=== PATIENT | female | born 1980 | race Caucasian/White ===

== ENCOUNTER 2023-04-20 13:18 | Emergency (ER) | payer SELFPAY ==
[2023-04-20 13:22] VITALS: BP 140/87; PULSE 84; RESP 16; TEMP 37.1; O2SAT 99; BMI 21.2
--- NOTE | 2023-04-20 13:28 | XR_ITS ---
WS: [id number] Examination: XR chest 1V portable [id number] Reason for Exam: fever Date: April 20, 2023 Comparison: None. Findings: The heart is prominent in size. The mediastinum is not widened. There is no pulmonary edema or pleural effusion. There is no dense consolidation Impression: The heart size appears prominent. I see no failure consolidation.
--- NOTE | 2023-04-20 13:32 | ED_ITS ---
HPI - URI/Sore Throat General: Chief Complaint: Upper Respiratory Infection Stated Complaint: body aches , chills Time Seen by Provider: 04/20/23 13:22 Source: patient Mode of arrival: ambulatory Limitations: no limitations History of Present Illness: 43-year-old female states that over the last 3 days she has had cough congestion and bodyaches. She states she is unsure if she been around anyone sick. She states she feels like she has the flu. She states she had subjective fevers at home has not taken her temp she is afebrile here. She denies any production with her cough denies any dyspnea. She has had no vomiting or diarrhea. Associated symptoms: Reports chills; Deny abdominal pain, chest pain, diarrhea, fever(s), headache(s), nausea or vomiting Review of Systems Const: Reports: chills and body aches; Denies: fever(s) Eyes: Denies: eye discomfort ENMT: Denies: throat pain or dental pain Card: Denies: chest pain Resp: Reports: non-productive cough; Denies: dyspnea GI: Denies: abdominal pain, nausea, vomiting or diarrhea Musc: Denies: neck pain or back pain Skin/Breast: Denies: rash Neuro: Denies: headache(s) Physical Exam Const: COMMON NORMALS: no acute distress, patient oriented x3 and healthy appearing HENMT: COMMON NORMALS: normocephalic and atraumatic HEAD & SCALP: normocephalic and atraumatic Neck/C-Spine: COMMON NORMALS: full ROM and supple Chest: COMMONS NORMALS: normal inspection of the chest Resp: COMMON NORMALS: normal respiratory effort, No retractions, No use of accessory muscles and clear to auscultation bilaterally AUSCULTATION: clear to auscultation bilaterally Cardio: COMMON NORMALS: regular rate, regular rhythm and No murmurs present (Cardio) RATE: regular rate RHYTHM: regular rhythm Extremity: COMMON NORMALS: normal to inspection and full ROM Neuro: COMMON NORMALS: patient oriented x3, moves all extremities and no focal motor deficits Psych: COMMON NORMALS: mental status grossly normal, Normal thought process present and cooperative THOUGHT PROCESS: Normal thought process present Skin: COMMON NORMALS: no rashes or lesions noted and no wounds GENERAL SKIN EXAM: no rashes or lesions noted Course Vital Signs: Vital signs: Vital Signs Temperature 98.7 F 04/20/23 13:22 Pulse Rate 84 04/20/23 13:22 Respiratory Rate 16 04/20/23 13:22 Blood Pressure 140/87 04/20/23 13:22 Pulse Oximetry 99 04/20/23 13:22 Oxygen Delivery Me thod Room Air 04/20/23 13:22 MDM - URI/Sore Throat Medical Decision Making Patient presents here with cough congestion did test positive for influenza she is well-appearing here no distress we will prescribe her Tamiflu she is follow- up with PCP and return if worsening. Medical Records I reviewed the patient's medical records. Lab Data I reviewed the patient's lab results. Laboratory Results Influenza Type A Ag negative (Negative) 04/20/23 13:53 Influenza Type B Ag positive (Negative) H 04/20/23 13:53 SARS-CoV-2 Ag (Rapid) negative (Negative) 04/20/23 13:53 All radiology interpretation(s) finalized by discharge Discharge Plan Discharge Patient Disposition: Home Clinical Impression: Influenza Condition: Stable Prescriptions: New Tamiflu 75 mg capsule 75 mg PO BID 5 Days Qty: 10 0RF Discharge Orders: Discharge ED (Routine); Ordered 04/20/23 Ordered By: Starr Garvin Discharge Diet: Advance as tolerated Discharge Activity: Resume usual activity Patient Instructions: Influenza (ED) Coding Level of Care Code ED 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
[2023-04-20 14:16] LABS: Influenza A by IFA negative (Negative); Influenza B by IFA positive (Negative)
[2023-04-20 14:21] LABS: SARS Covid-2 Antigen negative (Negative)
[2023-04-20 14:55] VITALS: BP 140/87; PULSE 84; RESP 16; TEMP 37.1; O2SAT 99
== END 2023-04-20 14:56 | disposition home or self-care (01) ==
PROVIDERS: Emergency Provider Emergency Medicine
DX: J11.1 Influenza due to unidentified influenza virus with other respiratory manifestations (principal); Z11.52 Encounter for screening for COVID-19
CPT/HCPCS: 71045; 87426; 87804; 99284

== ENCOUNTER 2023-08-15 06:36 | Inpatient (IN) | payer SELFPAY ==
[2023-08-15] VITALS (69 sets, daily range): BP systolic 71–126; BP diastolic 45–75; PULSE 63–101; RESP 14–31; TEMP 37.1–38.4; O2SAT 95–100; BMI 20.5
--- NOTE | 2023-08-15 07:15 | W.ED.ABDPA2 ---
HPI - Abdominal Pain General: Chief Complaint: Abdominal Pain Stated Complaint: abd pain, back pain, vomitting, diarrhea Time Seen by Provider: 08/15/23 06:40 Source: patient Mode of arrival: ambulatory History of Present Illness: 43-year-old female who presents to the emergency room with complaints of severe abdominal pain began last evening with nausea vomiting and diarrhea denies any medic easy melena hematemesis or coffee-ground emesis has had some vaginal bleeding. Patient is perimenopausal with irregular periods at this point she has been having a period last couple of days. She denies any previous abdominal surgeries beyond a remote history of a D&C. Complaints of diffuse severe abdominal pain. MD elicited complaint: abdominal pain Onset (ago): hour(s) Pain Consistency: constant Location: Diffuse Severity: severe Quality: sharp Associated Symptoms: Reports GI cramping, nausea, poor appetite and vomiting; Denies anorexia, belching, bloating, change in bowel habits, change in stool character, chills, coffee ground emesis, constipation, diarrhea, dyspepsia, dysuria, excessive flatus, fever(s), heartburn, hematochezia, hematuria, hematemesis, fecal incontinence, loose stools, melena and syncope Review of Systems Const: Denies: fever(s) or chills Card: Denies: syncope Resp: Denies: dyspnea GI: Reports: nausea, vomiting and GI cramping; Denies: hematemesis, coffee ground emesis, heartburn, diarrhea, constipation, bloating, belching, excessive flatus, fecal incontinence, change in bowel habits, change in stool character, hematochezia or melena : Denies: dysuria or hematuria Musc: Denies: neck pain or back pain Skin/Breast: Denies: rash PFS ED PFSH: Surgical History History of dilation and curettage Physical Exam Const: GENERAL APPEARANCE: cooperative ORIENTATION/CONSCIOUSNESS: Yes awake, Yes oriented to person, Yes oriented to place and Yes oriented to time HENMT: COMMON NORMALS: normocephalic, atraumatic and hearing grossly normal bilaterally HEAD & SCALP: normocephalic and atraumatic Resp: COMMON NORMALS: normal respiratory effort, No retractions, No use of accessory muscles and clear to auscultation bilaterally AUSCULTATION: clear to auscultation bilaterally Cardio: COMMON NORMALS: regular rhythm and No murmurs present (Cardio) RATE: tachycardic RHYTHM: regular rhythm GI: COMMON NORMALS: No hepatosplenomegaly present AUSCULTATION: Yes normoactive bowel sounds PALPATION: Yes Tenderness to palpation present (GI) (Diffuse), Yes Guarding due to palpation present (GI) and Yes No hepatosplenomegaly present PERCUSSION: normal to percussion (Exquisite tenderness guarding) Extremity: COMMON NORMALS: normal to inspection, capillary refill normal, no clubbing, cyanosis or edema, no calf tenderness and no pedal edema Neuro: SENSORIUM/ORIENTATION: Yes oriented to person, Yes oriented to place and Yes oriented to time Skin: COMMON NORMALS: no rashes or lesions noted GENERAL SKIN EXAM: no rashes or lesions noted Course Vital Signs: Vital signs: Vital Signs Temperature 99.0 F 08/15/23 06:53 Pulse Rate 79 08/15/23 11:00 Respiratory Rate 18 08/15/23 11:00 Blood Pressure 118/69 08/15/23 11:58 Pulse Oximetry 97 08/15/23 11:00 Oxygen Delivery Me thod Room Air 08/15/23 11:00 MDM - Abdominal Pain Medical Decision Making Initial fluid bolus of 2 L ordered which slightly exceeds the 30 mL/kg for this patient. The 30 mill per kilo order for sepsis was not given since she had already received the equivalent of that. Radiology called regarding this patient they report a systemic abdominal inflammatory reaction there is abnormal appearing appendix they are concerned about acute appendicitis there is an adnexal mass with her beta-hCG is negative. Patient has acute surgical abdomen at this time. Her blood pressure initially improved with IV fluids from her presenting blood pressure of 70 currently she is 86 systolic with a mean arterial pressure of 63 she is completing the 2 L fluid bolus. We have ordered Levophed and Zosyn. I contacted Dr. Isidro who is consulting on the patient for her the acute abdomen and abnormal CT presentation. Dr. Isidro is seen and patient will admit for acute appendicitis. Patient has stabilized in the ER after fluid bolus has been given IV Zosyn and is currently on Levophed. Lab Data 08/15/23 07:08 08/15/23 07:08 Labs/Radiology: Radiology Impressions Abdomen/Pelvis CT 08/15/23 07:20 IMPRESSION: 1. Abnormally dilated appendix which contains fluid and appendicoliths in surrounded by fluid consistent with a appendicitis however the entire small and large bowel is abnormal with dilated loops of small bowel and diffuse wall thickening involving the small and large bowel elise. There is fluid adjacent to the appendix but also in the mesentery and in the cul-de-sac. It is likely that the appendicitis has generated such an inflammatory response as to secondarily involve the entire large and small bowel . It is less likely that the appendix is secondarily involved in an inflammatory process involving the entire GI tract. 2. No free air. No abscess 3. Septated cystic lesion right adnexa for which follow-up ultrasound is recommended 4. Umbilical hernia containing only fat. 5. Hepatomegaly 6. Distended gallbladder. No gallstones or gallbladder wall thickening detected. Negative for biliary ductal dilatation 7. Small umbilical hernia containing only fat Preliminary report was discussed with Dr Mclaughlin on 08/15/2023 at 8:17 a.m. central time Laboratory Results WBC 13.05 10^3/uL (3.29-11.43) H 08/15/23 07:08 RBC 4.49 10^6/uL (3.85-5.65) 08/15/23 07:08 Hgb 10.40 g/dL (11.27-16.99) L 08/15/23 07:08 Hct 33.2 % (36-47) L 08/15/23 07:08 MCV 73.9 fl (85-98) L 08/15/23 07:08 MCH 23.2 pg (27-33) L 08/15/23 07:08 MCHC 31.3 g/dL (30-55) 08/15/23 07:08 RDW 15.7 % (12.1-15.1) H 08/15/23 07:08 Plt Count 343 10^3/cmm (157-399) 08/15/23 07:08 MPV 10.0 fL (7.4-10.4) 08/15/23 07:08 Neut % (Auto) 91.0 % 08/15/23 07:08 Lymph % (Auto) 2.1 % 08/15/23 07:08 [place] % (Auto) 4.8 % 08/15/23 07:08 Eos % (Auto) 1.3 % 08/15/23 07:08 Baso % (Auto) 0.4 % 08/15/23 07:08 Neut # (Auto) 11.87 10^3/uL (1.8-7.7) H 08/15/23 07:08 Lymph # (Auto) 0.3 10^3/uL (0.8-4.8) L 08/15/23 07:08 [place] # (Auto) 0.6 10^3/uL (0.2-0.9) 08/15/23 07:08 Eos # (Auto) 0.2 10^3/uL (0.0-0.8) 08/15/23 07:08 Baso # (Auto) 0.1 10^3/uL (0.0-0.1) 08/15/23 07:08 Nucleated RBC % (auto) 0 % 08/15/23 07:08 Nucleated RBCs # 0.0 /100WBC 08/15/23 07:08 PT 14.60 SECONDS (12.1-14.9) 08/15/23 07:08 INR 1.11 (0.8-1.2) 08/15/23 07:08 APTT 28.4 SECONDS (23.9-36.7) 08/15/23 07:08 Sodium 137 mmol/L (136-145) 08/15/23 07:08 Potassium 4.1 mmol/L (3.5-5.1) 08/15/23 07:08 Chloride 103 mmol/L (98-107) 08/15/23 07:08 Carbon Dioxide 19 mmol/L (22-29) L 08/15/23 07:08 Anion Gap 19.1 (5-19) H 08/15/23 07:08 BUN 17 mg/dL (6-20) 08/15/23 07:08 Creatinine 1.1 mg/dL (0.5-0.9) H 08/15/23 07:08 GFR Calculation 53.7 mL/min (90-130) L 08/15/23 07:08 Glucose 145 mg/dL (65-115) H 08/15/23 07:08 Calculated Osmolality 288 mOsm/kg (285-295) 08/15/23 07:08 Lactic Acid 1.9 mmol/L (0.5-2.2) 08/15/23 07:08 Calcium 9.0 mg/dL (8.5-10.5) 08/15/23 07:08 Magnesium 1.4 mg/dL (1.7-2.3) L 08/15/23 07:08 Total Bilirubin 1.6 mg/dL (0.15-1.2) H 08/15/23 07:08 AST 22 U/L (0-32) 08/15/23 07:08 ALT 16 U/L (0-33) 08/15/23 07:08 Alkaline Phosphatase 56 U/L (35-105) 08/15/23 07:08 Total Protein 7.6 g/dL (6.6-8.7) 08/15/23 07:08 Albumin 4.2 g/dL (3.5-5.2) 08/15/23 07:08 Globulin 3.4 g/dL (1.3-4.6) 08/15/23 07:08 Lipase 9 U/L (13-60) L 08/15/23 07:08 HCG, Qual Negative (Negative) 08/15/23 07:08 Serum Ketones Negative (Negative) 08/15/23 07:08 Blood Type A Positive 08/15/23 09:00 Rho(D) Type Rh positive 08/15/23 09:00 Antibody Screen Negative 08/15/23 09:00 All radiology interpretation(s) finalized by discharge Discharge Plan Discharge Patient Disposition: Admitted As Inpatient Clinical Impression: Appendicitis, Septic shock Condition: Stable Prescriptions: No Action No Known Home Medications Coding Level of Care Code 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
--- NOTE | 2023-08-15 07:20 | CTR_ITS ---
PROCEDURE INFORMATION: Exam: CT Abdomen And Pelvis With Contrast Exam date and time: 08/15/2023 7:24 AM Age: 43 years old Clinical indication: Abdominal pain; Localized; Lower; Additional info: Abd pain TECHNIQUE: Imaging protocol: Computed tomography of the abdomen and pelvis with contrast. Radiation optimization: All CT scans at this facility use at least one of these dose optimization techniques: automated exposure control; mA and/or kV adjustment per patient size (includes targeted exams where dose is matched to clinical indication); or iterative reconstruction. Contrast material: OMNI 350; Contrast volume: 100 ml; Contrast route: INTRAVENOUS (IV); COMPARISON: CR XR chest 1V portable [id number] 04/20/2023 2:25 PM RADIATION DOSE METRICS: Total DLP (mGy-cm): 455.53 FINDINGS: Lungs: The included portions of the lung bases are clear. Diaphragm: There is a small hiatal hernia. Liver: The liver is enlarged measuring 20 cm. There are no focal liver lesions. Gallbladder and bile ducts: The gallbladder is distended there are no gallstones detected and there is no gallbladder wall thickening Pancreas: There are no focal lesions in the pancreas. Spleen: The spleen is unremarkable. Adrenal glands: The adrenal glands are normal. Kidneys and ureters: There are no renal or ureteral calculi. There is no hydronephrosis. Stomach and bowel: The bowel-gas pattern is not obstructed. There are dilated loops small bowel. There is diffuse wall thickening involving the colon and nearly the entire small bowel suggesting colitis/enteritis though could be secondary to generalized inflammatory process. The appendix is markedly abnormal. It is dilated up to 15 mm and contains fluid appendicoliths. It is seen on axial images 50 through 55. And coronal images 20 2 through 34 and sagittal images 38 through 44 There is surrounding abnormal fluid here as well as elsewhere in the mesentery and in the cul-de-sac. There is no organized abscess. Findings are thought to be consistent with a appendicitis with secondary involvement of the remainder of the GI tract with marked inflammatory response. The possibility that the appendix is secondarily involved from a generalized GI inflammatory process is thought to be less likely. Could Appendix: See Stomach and bowel finding. Intraperitoneal space: See Stomach and bowel finding. There is no free intraperitoneal air. Vasculature: Unremarkable. No abdominal aortic aneurysm. Lymph nodes: There is mild retroperitoneal adenopathy Urinary bladder: Unremarkable as visualized. Reproductive: The uterus is unremarkable. There is air in the vagina. There is a cystic lesion in the right adnexa measuring 3.2 x 2.2 x 3.6 cm. This may be a septated cyst however cystic neoplasm cannot be excluded and follow-up with ultrasound is recommended. There is a 2nd smaller 1 located in the anterior right adnexa measuring 1.2 cm Bones/joints: Unremarkable. No acute fracture. Soft tissues: There is a small umbilical hernia containing only fat. CT/CT abdomen pelvis w con* [id number] IMPRESSION: 1. Abnormally dilated appendix which contains fluid and appendicoliths in surrounded by fluid consistent with a appendicitis however the entire small and large bowel is abnormal with dilated loops of small bowel and diffuse wall thickening involving the small and large bowel elise. There is fluid adjacent to the appendix but also in the mesentery and in the cul-de-sac. It is likely that the appendicitis has generated such an inflammatory response as to secondarily involve the entire large and small bowel . It is less likely that the appendix is secondarily involved in an inflammatory process involving the entire GI tract. 2. No free air. No abscess 3. Septated cystic lesion right adnexa for which follow-up ultrasound is recommended 4. Umbilical hernia containing only fat. 5. Hepatomegaly 6. Distended gallbladder. No gallstones or gallbladder wall thickening detected. Negative for biliary ductal dilatation 7. Small umbilical hernia containing only fat Preliminary report was discussed with Dr Mclaughlin on 08/15/2023 at 8:17 a.m. central time
[2023-08-15 07:24] LABS: Basophils # 0.1 10^3/uL (0.0-0.1); Basophils % 0.4 %; Eosinophils # 0.2 10^3/uL (0.0-0.8); Eosinophils % 1.3 %; Hematocrit 33.2 % (36-47); Lymphocytes # 0.3 10^3/uL (0.8-4.8); Lymphocytes % 2.1 %; Mean Corpuscular HGB Conc 31.3 g/dL (30-55); Mean Corpuscular Hemoglobin 23.2 pg (27-33); Mean Corpuscular Volume 73.9 fl (85-98); Monocytes # 0.6 10^3/uL (0.2-0.9); Monocytes % 4.8 %; Neutrophils # 11.87 10^3/uL (1.8-7.7); Nucleated Red Blood Cells % 0 %; Platelet Count 343 10^3/cmm (157-399); Red Blood Count 4.49 10^6/uL (3.85-5.65); Red Cell Distribution Width 15.7 % (12.1-15.1); White Blood Count 13.05 10^3/uL (3.29-11.43)
[2023-08-15] MEDS: iohexol 350 mg/mL 500 mL Btl (per mL) IV (07:30)
[2023-08-15] MEDS: fentaNYL 50 mcg/mL INJ 2mL 25 MCG IVP ×3 (07:36→11:00)
[2023-08-15] MEDS: ondansetron 2 mg/ML SDV 2 mL 4 MG IVP (07:36)
[2023-08-15] MEDS: sodium chloride 0.9% 1,000 ML 999 ML IV ×2 (07:37)
[2023-08-15 07:44] LABS: Alanine Aminotransferase 16 U/L (0-33); Albumin Level 4.2 g/dL (3.5-5.2); Alkaline Phosphatase 56 U/L (35-105); Anion Gap 19.1 (5-19); Aspartate Amino Transferase 22 U/L (0-32); Blood Urea Nitrogen 17 mg/dL (6-20); Carbon Dioxide 19 mmol/L (22-29); Chloride 103 mmol/L (98-107); Creatinine Clr Calc Pharmacy 64.0637; Globulin 3.4 g/dL (1.3-4.6); Glomerular Filtration Rate 53.7 mL/min (90-130); Glucose 145 mg/dL (65-115); Lipase 9 U/L (13-60); Magnesium 1.4 mg/dL (1.7-2.3); Osmolality Calculated 288 mOsm/kg (285-295); Potassium 4.1 mmol/L (3.5-5.1); Sodium 137 mmol/L (136-145); Total Bilirubin 1.6 mg/dL (0.15-1.2); Total Protein 7.6 g/dL (6.6-8.7)
[2023-08-15 08:04] LABS: INR 1.11 (0.8-1.2); Lactic Sepsis W/Reflex 1.9 mmol/L (0.5-2.2)
[2023-08-15 08:05] LABS: Partial Thromboplastin Time 28.4 SECONDS (23.9-36.7)
[2023-08-15 08:12] LABS: HCG, Serum Qual Negative (Negative); Ketone (Acetest) Serum Negative (Negative)
[2023-08-15] MEDS: norepinephrine 4 MG/250 ML BAG 30 MG IV (08:47)
[2023-08-15] MEDS: piperacillin-tazobactam 4.5 GM in sodium chloride 0.9% (plus) 50 ML IV (09:25)
--- NOTE | 2023-08-15 09:48 | P.HP_ITS ---
Providers/Chief Complaint 2 Chief Complaint: abd pain, back pain, vomitting, diarrhea History of Present Illness Lima Castellano is a 43 year old female who presented to the hospital with 1 day history of lower abdominal pain nausea and emesis. She reports that her pain is severe and radiates across to her abdomen. Movement and palpation makes pain worse. Lifting her knees up to her chest makes the pain better. She denies any hematemesis. She does report diarrhea but denies any hematochezia and/or melena. A CT of the abdomen pelvis shows a dilated appendix with surrounding inflammation and edema. There is also wall thickening of the small and large bowel thought secondary to appendicitis. She is hypotensive in the ER right now and being put on Levophed Review of Systems 2 General: Reports: 10 or more systems reviewed and unremarkable except in HPI and below Medications/Allergies Home Medications Medication Instructions Recorded Confirmed Last Taken Type No Known Home Medications 08/15/23 08/15/23 Unknown History Allergies Allergy/AdvReac Type Severity Reaction Status Date / Time No Known Allergies Allergy Verified 04/20/23 13:27 PFSH Acute 2 PFSH: Surgical History History of dilation and curettage Vitals/I&O/Wt Last Vital Signs Temp 99.0 F 08/15/23 06:53 Pulse 82 08/15/23 09:27 Resp 18 08/15/23 09:27 BP 101/56 08/15/23 09:31 Pulse Ox 95 08/15/23 09:27 O2 Del Method Room Air 08/15/23 09:27 08/14/23 08/15/23 08/15/23 22:59 06:59 14:59 Intake Total 19.5 / 19.5 Balance 19.5 / 19.5 Weight last 48 hrs Weight 135 lb Physical Exam 2 Narrative: General : Patient is well developed , no acute distress, oriented x3 Head : Normal cephalic, a-traumatic. Ears : Pinnae and external canal are normal. Hearing is normal. Eyes : PERRLA, Sclera and injection are normal. No conjunctival discharge. Nose : Mucous membranes are without erythema. Throat : buccal mucosa is normal, gums are without significant recession or hypertrophy. Lungs : Equal chest rise bilaterally, no use of accessory muscles, trachea is midline. Cor : Rate and rhythm are normal. Abdomen : Soft, mild distention, diffuse tenderness with guarding but no rebound Extremities : No edema, no cyanosis or clubbing, dorsalis pedis pulses are present bilaterally, non-tender to palpation of calves. Upper extremities are normal bilaterally. Back : non-tender to palpation, no CVA tenderness. Neuro : CN II - XII intact, Upper and lower extremities have equal and full strength Data 08/15/23 07:08 08/15/23 07:08 Micro: Microbiology 08/15/23 09:05 Blood Culture - Preliminary Blood SPECIMEN COLLECTED 08/15/23 09:00 Blood Culture - Preliminary Blood SPECIMEN COLLECTED A&P Assessment and plan (1) Septic shock: (2) Appendicitis: Plan Bolus IV fluids Antibiotics To the operating room for Laparoscopic Appendectomy The risks and benefits of the procedure, including but not limited to, bleeding, infection, scar, numbness, pain, damage to surrounding structures, conversion to an open procedure, were explained to the patient. He is understanding of the risks and wishes to proceed. Attestations 2 Medical Necessity Statement*: Patient will require at least 1 night in the hospital for recovery after laparoscopic appendectomy for appendicitis with septic shock. She very likely will need to stay multiple days, especially if she is perforated Coding Level of Care Code 05689 Diagnoses Septic shock A41.9; R65.21 Appendicitis K37
--- NOTE | 2023-08-15 12:47 | ANES.PREANE2 ---
Pre-Anesthetic Assessment Height/Weight: Height 1.73 m Weight 61.235 kg Temp Pulse Resp BP Pulse Ox O2 Del Method 98.7 F 82 16 126/72 99 Room Air 08/15/23 12:31 08/15/23 12:31 08/15/23 12:31 08/15/23 12:31 08/15/23 12:31 08/15/23 12:31 Operation Date: 08/15/23 13:15 Proposed Procedures p Laparoscopic Appendectomy(Not Applicable) - Jd Isidro DO Familial anesthetic complications: none Was Beta Hayley taken within 24 hours: N/A Was Clonidine taken within 24 hours: N/A Last intake: Intake Last Liquid Date 08/14/23 Last Liquid Time 20:00 Last Solid Date 08/14/23 Last Solid Time 20:00 Social Tobacco and No alcohol Exam alert, oriented x 3, clear to auscultation bilaterally and regular rate & rhythm Airway Mallampati: Class II Dentition: other (extremely poor dention, very few left - discolored) Metabolic sepsis on levo gtt with stable BP Anesthetic Plan ASA status: 2E Anesthesia: General Risk of > 500 ml blood loss (7ml/kg in children): No Medications/Allergies Home Medications Medication Instructions Recorded Confirmed Last Taken Type No Known Home Medications 08/15/23 08/15/23 Unknown History Allergies Allergy/AdvReac Type Severity Reaction Status Date / Time No Known Allergies Allergy Verified 04/20/23 13:27 Current Medications Generic Name Dose Route Start Last Admin Trade Name Freq PRN Reason Stop Dose Admin Norepinephrine Bitartrate 4 mg in 250 mls @ 0 mls/hr 08/15/23 08:30 08/15/23 09:26 Levophed IV 5 mcg/min .Q0M HIRAM 18.75 mls/hr Titration Protocol Per Protocol [facility] Anesthesia Surgical History History of dilation and curettage Data Anesthesia 08/15/23 07:08 08/15/23 07:08 Short CBC 08/15/23 Range/Units 07:08 WBC 13.05 H (3.29-11.43) 10^3/uL Hgb 10.40 L (11.27-16.99) g/dL Hct 33.2 L (36-47) % MCV 73.9 L (85-98) fl Plt Count 343 (157-399) 10^3/cmm Neut % (Auto) 91.0 % Neut # (Auto) 11.87 H (1.8-7.7) 10^3/uL BMP 08/15/23 07:08 Sodium 137 Potassium 4.1 Chloride 103 Carbon Dioxide 19 L BUN 17 Creatinine 1.1 H Glucose 145 H Calcium 9.0 Liver Function 08/15/23 Range/Units 07:08 Total Bilirubin 1.6 H (0.15-1.2) mg/dL AST 22 (0-32) U/L ALT 16 (0-33) U/L Alkaline Phosphatase 56 (35-105) U/L Albumin 4.2 (3.5-5.2) g/dL Blood Bank 08/15/23 09:00 Blood Type A Positive Rho(D) Type Rh positive Antibody Screen Negative Coags 08/15/23 07:08 PT 14.60 INR 1.11 APTT 28.4 Microbiology 08/15/23 09:05 Blood Culture - Preliminary Blood SPECIMEN COLLECTED 08/15/23 09:00 Blood Culture - Preliminary Blood SPECIMEN COLLECTED Cardiac Studies: No Data to Display
[2023-08-15] MEDS: lidocaine-epi 2% PF 1:200,000 20 mL SDV XX (13:16)
--- NOTE | 2023-08-15 14:40 | ANE.PACU2 ---
Inpatient post-anesthesia follow up: Airway intact: Yes Vital signs: Temperature 101.2 F Pulse Rate 86 Respiratory Rate 27 Blood Pressure 95/60 Pulse Oximetry 98 Oxygen Delivery Me thod Room Air Oxygen Flow Rate 10 Fraction of Inspir ed Oxygen Hydration adequate: Yes Nausea and vomiting: No Pain level: 1 Mental status: Baseline
--- NOTE | 2023-08-15 15:20 | P.OP_ITS ---
Operative Report Date of procedure: August 15, 2023 Pre-op diagnosis: Acute appendicitis Septic shock Post-op diagnosis: Acute gangrenous and perforated appendicitis Septic shock Procedure done: Laparoscopic appendectomy Implants: 19 [place] Ortiz drain Specimens removed/disposition: Appendix Surgeon: Jd Isidro DO Anesthesia: General and Local Estimated blood loss (mL): 5 Complications: None apparent Brief History: This is a very pleasant 43-year-old female who presents to the hospital reporting a 1 day history of abdominal pain. She was found to be in shock in the ER and was put on vasopressors. CT of the abdomen pelvis showed extensive inflammation and fluid throughout the abdomen along with likely appendicitis. Laparoscopic appendectomy was indicated. The risk and benefits were explained and documented. Procedure: Patient was wheeled operative room placed on the OR table in the supine position. The abdomen was inspected prepped and draped in usual sterile fashion. General tracheal ovation was achieved by department anesthesia. A timeout was performed. All present were in agreement. 2% lidocaine with epinephrine was used to anesthetize the skin over Ramirez's point. A 15 blade scalpel was used to make a stab incision. A Veress needle was then inserted in the abdomen and intra-abdominal insufflation was brought to 15 mmHg. In a similar fashion, a 12 mm trocar was placed through the umbilicus. Purulence could be seen throughout the abdomen with some matting of the small bowel and purulence in the right lower quadrant. Two 5 mm trocars were placed in the lower abdomen 1 in the left lower quadrant and 1 in the right lower quadrant. The appendix was from the colon and small bowel. The mesoappendix was taken with the laparoscopic LigaSure. 2 PDS Endoloops were wrapped around the base of the appendix. The appendix was found to be gangrenous and perforated. Just distal to the Endoloops, the appendix was transected with the laparoscopic LigaSure. An Endo Catch bag was then used to remove the appendix through the umbilicus. The abdomen was then suctioned of all purulence. There was significant purulence around the liver. A 19 [place] Ortiz drain was then placed in through the left lower quadrant going along the liver, right paracolic gutter and into the pelvis. Drain was sutured in place with 3-0 silk. The umbilicus was then closed at the fascia with an 0 Vicryl and Triston-Amy in a [id number] fashion. Skin was washed and dried, trocar and and insufflation were removed. Skin was closed with 4-0 Monocryl in an interrupted subcuticular fashion. Dermabond was applied. Patient tolerated procedure well.
--- NOTE | 2023-08-15 16:17 | P.CONIM_ITS ---
Providers/Reason For Consult 2 Consulting Physician/Specialty*: General surgery Reason for Consult*: Perforated appendicitis, with shock Attending Physician: Jd Isidro DO History of Present Illness History of Present Illness Lima Castellano is a 43 year old female with no significant past medical history, who presents [facility] due to severe abdominal pain since last night, with nausea, vomiting, diarrhea, she tells me that she is on her period currently so she does not know if she has had bloody stools, denies any hematemesis, she has been having irregular periods recently, she has had a few D&Cs, for miscarriages, she has 4 kids, youngest being 16 years old, denies any other medical history, in the emergency room, she is found to have concerns for acute gangrenous and perforated appendicitis, in the emergency room she was given IV antibiotics, she was placed on pressors status post laparoscopic appendectomy, was on Levophed, currently she is not seen in the ICU, she is febrile, normotensive, on room air, alert oriented x 3, off pressors, currently her abdominal pain is mild, no lightheadedness, no dizziness, Review of Systems 2 Card: Denies: chest pain Resp: Denies: dyspnea GI: Reports: abdominal pain Medications/Allergies Home Medications Medication Instructions Recorded Confirmed Last Taken Type No Known Home Medications 08/15/23 08/15/23 Unknown History Allergies Allergy/AdvReac Type Severity Reaction Status Date / Time No Known Allergies Allergy Verified 04/20/23 13:27 Current Medications Generic Name Dose Route Start Last Admin Trade Name Freq PRN Reason Stop Dose Admin Norepinephrine Bitartrate 4 mg in 250 mls @ 0 mls/hr 08/15/23 08:30 08/15/23 14:40 Levophed IV 0 mcg/min .Q0M HIRAM 0 mls/hr Titration Protocol Per Protocol PFSH Acute 2 PFSH: Medical History (Updated 08/15/23 @ 16:22 by Rishabh Cohen MD) No pertinent past medical history Surgical History History of dilation and curettage Family History (Updated 08/15/23 @ 16:23 by Rishabh Cohen MD) Other CAD (coronary artery disease) Diabetes Ovarian cancer Social History (Updated 08/15/23 @ 16:20 by Rishabh Cohen MD) Smoking and tobacco/nicotine status: current every day tobacco/nicotine user Alcohol intake: never Substance/Drug Use: former Female Reproductive History: Date of last menstrual period: 08/12/23 Vitals/I&O/Wt Last Vital Signs Temp 101.2 F H 08/15/23 14:32 Pulse 84 08/15/23 15:45 Resp 22 H 08/15/23 15:45 BP 102/63 08/15/23 15:45 Pulse Ox 96 08/15/23 15:40 O2 Del Method Room Air 08/15/23 14:50 O2 Flow Rate 10 08/15/23 14:12 08/15/23 08/15/23 08/15/23 06:59 14:59 22:59 Intake Total 1167.625 / 1167.625 Output Total 5 / Balance 1162.625 / 1162.625 Weight last 48 hrs Weight 61.235 kg Weight 61.235 kg Physical Exam 2 Const: COMMON NORMALS: no acute distress and patient oriented x3 HENMT: COMMON NORMALS: normocephalic HEAD & SCALP: normocephalic Eye: COMMON NORMALS: Equal, round and reactive pupils present and EOMs intact bilaterally PUPIL: Yes Equal, round and reactive pupils present Neck/C-Spine: COMMON NORMALS: no JVD Lymph: LYMPHATIC: no lymphadenopathy noted Resp: COMMON NORMALS: normal respiratory effort, No retractions, No use of accessory muscles and clear to auscultation bilaterally AUSCULTATION: clear to auscultation bilaterally Cardio: COMMON NORMALS: no JVD, regular rate, regular rhythm, S1 normal heart sound present and S2 normal heart sound present RATE: regular rate RHYTHM: regular rhythm HEART SOUNDS: S1 normal heart sound present and S2 normal heart sound present GI: OTHER: Abdomen soft, slightly distended, diminished bowel sounds, no guarding, rebound, no rigidity, does have diffuse tenderness, surgical site looks clean and dry, GAMAL drain in place Extremity: COMMON NORMALS: no pedal edema Neuro: COMMON NORMALS: patient oriented x3, CN's II-XII intact bilaterally and moves all extremities Psych: COMMON NORMALS: mental status grossly normal Data 08/15/23 07:08 08/15/23 07:08 Micro: Microbiology 08/15/23 15:55 Blood Culture - Preliminary Blood SPECIMEN COLLECTED 08/15/23 15:50 Blood Culture - Preliminary Blood SPECIMEN COLLECTED 08/15/23 09:05 Blood Culture - Preliminary Blood SPECIMEN COLLECTED 08/15/23 09:00 Blood Culture - Preliminary Blood SPECIMEN COLLECTED A&P Assessment and plan (1) Appendicitis: (2) Septic shock: (3) No pertinent past medical history: (4) Acute gangrenous appendicitis with perforation and peritonitis: Plan Acute gangrenous and perforated appendicitis ? Status post laparoscopic appendectomy ? GAMAL drain in place, ? Was on pressors in the emergency room received IV antibiotics, received IV fluids ? Plan ? Currently in ICU ? Off pressors ? Monitor hemodynamics closely - can give fluid boluses as needed, maintain MAP greater than 65 ? Currently fluids at 150 cc an hour closely monitor for fluid overload, ? Continue Dilaudid for pain control -Continue Zosyn ? Full code ? Heparin for DVT prophylaxis Septated cystic lesion right adnexa for which follow-up ultrasound is recommended ? Has a family history of ovarian cancer ? Will obtain a CA125 -Will have patient follow-up with gynecology as outpatient Consult Attestations 2 Medical Necessity Statement: Patient requires hospitalization, inpatient, greater than 2 minutes, for acute gangrenous perforated appendicitis status post laparoscopic appendectomy with current ICU admission, due to hypotension and was on pressors off pressors, IV antibiotics, fluid therapy, close monitoring Diagnoses Appendicitis K37 Septic shock A41.9; R65.21 No pertinent past medical history Z78.9 Acute gangrenous appendicitis with perforation and peritonitis K35.32
[2023-08-15] MEDS: piperacillin-tazobactam 3.375 GM in sodium chloride 0.9% (plus) 50 ML IV (16:42)
[2023-08-15] MEDS: heparin 5,000 unit/mL INJ 1 mL 5000 UNIT SUBCUT ×2 (16:42→23:50)
[2023-08-15] MEDS: HYDROcodone-acetaminophen 5-325 mg Tablet 1 TAB PO ×2 (16:42→23:46)
[2023-08-15] MEDS: sodium chloride 0.9% 1,000 ML 150 ML IV ×2 (16:51→23:47)
[2023-08-15] MEDS: docusate sodium 100 mg Capsule PO (16:59)
[2023-08-15 17:16] LABS: CA 125 40.8 U/mL (0-35)
[2023-08-15] MEDS: HYDROmorphone 1 mg/mL INJ 1 mL IVP (20:07)
[2023-08-16] VITALS (54 sets, daily range): BP systolic 70–115; BP diastolic 47–72; PULSE 63–88; RESP 18–34; TEMP 37.1–37.5; O2SAT 92–100
[2023-08-16 00:19] LABS: Bilirubin Urine Neg (Negative); Blood Urine 3+ (Negative); Glucose Urine UA Norm (Normal); Ketones Urine 1+ (Negative); Leukocyte Esterase Urine 1+ (Negative); Nitrate Urine Negative (Negative); Protein Urine Trace (Negative); Specific Gravity, Urine 1.015 (1.005-1.030); Urine Appearance Slightly Cloudy (CLEAR); Urine Color Dark Yellow (Yellow); Urobilinogen Urine Norm (Negative); pH Urine 5 (5-7)
[2023-08-16 00:20] LABS: Add Urine Microscopic? YES; Bacteria Urine 1+ /hpf; RBC Urine 0-4 /hpf (0-2)
[2023-08-16 00:21] LABS: Add Urine Culture? Yes; Trichomonas Urine 1+ /hpf
[2023-08-16] MEDS: piperacillin-tazobactam 3.375 GM in sodium chloride 0.9% (plus) 50 ML IV ×3 (00:51→16:43)
[2023-08-16] MEDS: sodium chloride 0.9% 1,000 ML 150 ML IV ×2 (06:10→13:37)
[2023-08-16] MEDS: HYDROcodone-acetaminophen 5-325 mg Tablet 1 TAB PO ×4 (06:23→18:30)
[2023-08-16 06:36] LABS: Basophils % 0.2 %; Eosinophils % 0.1 %; Hematocrit 27.6 % (36-47); Lymphocytes # 0.9 10^3/uL (0.8-4.8); Lymphocytes % 4.5 %; Mean Corpuscular HGB Conc 32.6 g/dL (30-55); Mean Corpuscular Volume 70.6 fl (85-98); Mean Platelet Volume 10.2 fL (7.4-10.4); Monocytes # 0.9 10^3/uL (0.2-0.9); Monocytes % 4.6 %; Neutrophils # 18.53 10^3/uL (1.8-7.7); Neutrophils % 90.3 %; Nucleated Red Blood Cells % 0 %; Platelet Count 300 10^3/cmm (157-399); Red Blood Count 3.91 10^6/uL (3.85-5.65); Red Cell Distribution Width 15.8 % (12.1-15.1); White Blood Count 20.54 10^3/uL (3.29-11.43)
[2023-08-16 06:59] LABS: Anion Gap 15.9 (5-19); Blood Urea Nitrogen 15 mg/dL (6-20); Calcium 7.9 mg/dL (8.5-10.5); Carbon Dioxide 20 mmol/L (22-29); Chloride 108 mmol/L (98-107); Creatinine Clr Calc Pharmacy 103.5202; Glomerular Filtration Rate 90.5 mL/min (90-130); Glucose 145 mg/dL (65-115); Magnesium 1.6 mg/dL (1.7-2.3); Osmolality Calculated 293 mOsm/kg (285-295); Potassium 3.9 mmol/L (3.5-5.1); Sodium 140 mmol/L (136-145)
[2023-08-16] MEDS: heparin 5,000 unit/mL INJ 1 mL 5000 UNIT SUBCUT ×2 (07:06→16:44)
[2023-08-16] MEDS: pantoprazole DR 40 mg Tablet PO (08:11)
[2023-08-16] MEDS: docusate sodium 100 mg Capsule PO ×2 (08:11→16:44)
--- NOTE | 2023-08-16 10:30 | PC.CHAP ---
Pastoral Care Encounter/Spiritual Assessment Type of Contact [] Declined capacitor inspector visit [] Patient/Family/Request visit [] Outpatient visit [] Follow-up visit [] Physician referral [] Code/Alert [x] Routine visit [] Staff referral [] Actively dying [] Patient sleeping [] Family support [] [] Out of room [] Palliative care [] [] Receiving care in room [] Pre-surgical visit [] Trauma [] Long length of stay [x ICU visit [] Other: Relational/Emotional Strength [] Patient feels connected with others/family/visitors/staff [] Distress [] Loneliness/isolation [] Abandonment Spirituality of Patient [] Person of Elsie [] Attends Zoroastrian of their Elsie [] Believes in Prayer [] Reads Bible or Congregational materials [] There are Spiritual issues to be addressed Delivery Driver Interventions [x] Prayer [] Active listening [] Non-anxious presence [] Spiritual/emotional support [] Crisis/trauma care [] Spiritual counseling [] Bereavement support [] Provided bereavement packet [] Provided Bible/devotional materials [] Provided toy/stuffed animal, coloring book to patient or family member [] Provided Communion [] Anointing/[place] [] Salvation [] Completed spiritual assessment [] Other: Impact on Illness or Injury [] Angry [] Fearful [] Anxious [] Often cries [] Exhaustion [] Unable to work [] Unable to attend yarsani [] Unable to walk/stand [] Unable to read [] Unable to drive [] Unable to eat/drink [] Unable to sleep [] Unable to be with family [] Patient intubated [] Other: Summary no appetite... wanting to rest Time spent with patient
--- NOTE | 2023-08-16 13:23 | P.PN_ITS ---
Subjective 2 Subjective: Patient seen and examined. Pain controlled. Tolerating diet Vitals/I&O/Wt Last Vital Signs Temp 99.7 F H 08/17/23 04:00 Pulse 84 08/17/23 11:00 Resp 22 H 08/17/23 12:27 BP 112/70 08/17/23 11:00 Pulse Ox 93 08/17/23 12:27 O2 Del Method Room Air 08/17/23 11:00 O2 Flow Rate 10 08/15/23 14:12 08/16/23 08/17/23 08/17/23 22:59 06:59 14:59 Intake Total 290 / 1682.5 1307.5 / 2990.0 761.25 / 761.25 Output Total 120 / 540 470 / 470 Balance 290 / 1262.5 1187.5 / 2450.0 291.25 / 291.25 Weight last 48 hrs Weight 151 lb 8 oz Weight 151 lb 8 oz Weight 144 lb 12.8 oz Weight 144 lb 12.8 oz Weight 135 lb Physical Exam 2 Narrative: General: No acute distress, awake alert oriented x 3 Abdomen: Soft, distended, appropriately tender Drain serosanguineous Data 08/17/23 08:36 08/17/23 04:10 Micro: Microbiology 08/15/23 23:55 Urine Culture - Preliminary Urine,Clean Catch 08/15/23 15:55 Blood Culture - Preliminary Blood 08/15/23 15:50 Blood Culture - Preliminary Blood NEGATIVE TO DATE 08/15/23 09:05 Blood Culture - Preliminary Blood NEGATIVE TO DATE 08/15/23 09:00 Blood Culture - Preliminary Blood NEGATIVE TO DATE A&P Assessment and plan (1) Acute gangrenous appendicitis with perforation and peritonitis: Plan Antibiotics Regular diet Patient will need to stay in the hospital for 5 days for IV antibiotics due to the severity of her perforated appendicitis and peritonitis. I will repeat a CT of abdomen and pelvis prior to discharge Hospitalist following. Thank you for the recommendations Attestations 2 Medical Necessity Statement*: Patient requires multiple more nights in the hospital for IV antibiotics and recovery after laparoscopic appendectomy for gangrenous and perforated appendicitis with peritonitis Coding Level of Care Code Acute Code for [facility] Fwd Diagnoses Acute gangrenous appendicitis with perforation and peritonitis K35.32
--- NOTE | 2023-08-16 13:58 | P.PN_ITS ---
Subjective 2 Subjective: Patient was seen this morning, denies any fevers, no chills, no nausea, no vomiting Vitals/I&O/Wt Last Vital Signs Temp 99.4 F 08/16/23 07:00 Pulse 73 08/16/23 13:30 Resp 25 H 08/16/23 13:30 BP 105/65 08/16/23 13:30 Pulse Ox 100 08/16/23 13:30 O2 Del Method Room Air 08/16/23 13:30 O2 Flow Rate 10 08/15/23 14:12 08/15/23 08/16/23 08/16/23 22:59 06:59 14:59 Intake Total 672.5 / 4059.514 1752.625 / 3250.750 1290 / 1290 Output Total 80 / 85 720 / 805 420 / 420 Balance 592.5 / 1755.125 690.625 / 2445.750 870 / 870 Weight last 48 hrs Weight 65.68 kg Weight 65.68 kg Weight 61.235 kg Weight 61.235 kg Physical Exam 2 Const: COMMON NORMALS: no acute distress and patient oriented x3 Resp: COMMON NORMALS: normal respiratory effort, No retractions, No use of accessory muscles and clear to auscultation bilaterally AUSCULTATION: clear to auscultation bilaterally Cardio: COMMON NORMALS: regular rate, regular rhythm, S1 normal heart sound present and S2 normal heart sound present RATE: regular rate RHYTHM: r egular rhythm HEART SOUNDS: S1 normal heart sound present and S2 normal heart sound present GI: OTHER: Abdomen soft, slightly distended, scattered bowel sounds, no guarding, no rebound, no rigidity, GAMAL drain in place Extremity: COMMON NORMALS: no pedal edema Neuro: COMMON NORMALS: patient oriented x3 Psych: COMMON NORMALS: mental status grossly normal Data 08/16/23 06:00 08/16/23 06:00 Micro: Microbiology 08/15/23 09:05 Blood Culture - Preliminary Blood NEGATIVE TO DATE 08/15/23 09:00 Blood Culture - Preliminary Blood NEGATIVE TO DATE 08/15/23 15:55 Blood Culture - Preliminary Blood SPECIMEN COLLECTED 08/15/23 15:50 Blood Culture - Preliminary Blood SPECIMEN COLLECTED A&P Assessment and plan (1) Appendicitis: (2) Septic shock: (3) No pertinent past medical history: (4) Acute gangrenous appendicitis with perforation and peritonitis: Plan Acute gangrenous and perforated appendicitis ? Status post laparoscopic appendectomy ? GAMAL drain in place, ? Was on pressors in the emergency room received IV antibiotics, received IV fluids ? Plan ? Currently in ICU ? Off pressors ? Monitor hemodynamics closely - can give fluid boluses as needed, maintain MAP greater than 65 ? De-escalate fluids to 75 cc an hour ? Continue Dilaudid for pain control -Continue Zosyn ? Full code ? Heparin for DVT prophylaxis Septated cystic lesion right adnexa for which follow-up ultrasound is recommended ? Has a family history of ovarian cancer ? Will obtain a CA125, elevated, will need to follow-up with Golf Cart Mechanic as outpatient -Will have patient follow-up with gynecology as outpatient Attestations 2 Medical Necessity Statement*: Patient requires hospitalization for acute gangrenous perforated appendicitis, requiring IV antibiotics Diagnoses Appendicitis K37 Septic shock A41.9; R65.21 No pertinent past medical history Z78.9 Acute gangrenous appendicitis with perforation and peritonitis K35.32
[2023-08-16] MEDS: HYDROmorphone 1 mg/mL INJ 1 mL IVP (19:56)
[2023-08-17] VITALS (41 sets, daily range): BP systolic 104–123; BP diastolic 64–85; PULSE 78–92; RESP 14–34; TEMP 36.7–38.3; O2SAT 89–96; BMI 23.0
[2023-08-17] MEDS: HYDROmorphone 1 mg/mL INJ 1 mL IVP ×6 (00:09→21:52)
[2023-08-17] MEDS: heparin 5,000 unit/mL INJ 1 mL 5000 UNIT SUBCUT ×4 (00:15→22:44)
[2023-08-17] MEDS: piperacillin-tazobactam 3.375 GM in sodium chloride 0.9% (plus) 50 ML IV ×3 (01:38→17:20)
[2023-08-17] MEDS: HYDROcodone-acetaminophen 5-325 mg Tablet 1 TAB PO ×4 (03:03→19:50)
[2023-08-17] MEDS: sodium chloride 0.9% 1,000 ML 75 ML IV (03:04)
[2023-08-17 04:50] LABS: Anion Gap 14.6 (5-19); Blood Urea Nitrogen 11 mg/dL (6-20); Calcium 7.9 mg/dL (8.5-10.5); Carbon Dioxide 20 mmol/L (22-29); Chloride 106 mmol/L (98-107); Creatinine Clr Calc Pharmacy 103.5202; Glomerular Filtration Rate 90.5 mL/min (90-130); Glucose 91 mg/dL (65-115); Magnesium 1.6 mg/dL (1.7-2.3); Osmolality Calculated 283 mOsm/kg (285-295); Potassium 3.6 mmol/L (3.5-5.1); Sodium 137 mmol/L (136-145)
[2023-08-17 04:51] LABS: Acinetobacter baumannii Not Detected (NOT DETECT); Bacteroides fragilis Not Detected (NOT DETECT); Citrobacter Not Detected (NOT DETECT); Cronobacter sakazakii Not Detected (NOT DETECT); Enterobacter cloacae complex Not Detected (NOT DETECT); Enterobacter non cloacae Not Detected (NOT DETECT); Fusobacterium necrophorum Not Detected (NOT DETECT); Fusobacterium nucleatum Not Detected (NOT DETECT); Haemophilus influenzae Not Detected (NOT DETECT); Klebsiella pneumoniae group Not Detected (NOT DETECT); Morganella morganii Not Detected (NOT DETECT); Neisseria meningitidis Not Detected (NOT DETECT); Pan Candida Not Detected (NOT DETECT); Pan Gram-Positive Not Detected (NOT DETECT); Proteus mirabilis Not Detected (NOT DETECT); Pseudomonas aeruginosa Not Detected (NOT DETECT); Salmonella Not Detected (NOT DETECT); Serratia Not Detected (NOT DETECT); Serratia marcescens Not Detected (NOT DETECT); Stenotrophomonas maltophilia Not Detected (NOT DETECT)
[2023-08-17] MEDS: pantoprazole DR 40 mg Tablet PO (07:48)
[2023-08-17] MEDS: magnesium sulfate premix 4 GM/100 ML PREMIX IV (07:48)
[2023-08-17] MEDS: docusate sodium 100 mg Capsule PO ×2 (07:48→17:20)
[2023-08-17 08:42] LABS: Basophils % 0.2 %; Eosinophils % 0.2 %; Hematocrit 23.1 % (36-47); Lymphocytes # 0.8 10^3/uL (0.8-4.8); Lymphocytes % 4.6 %; Mean Corpuscular HGB Conc 32.9 g/dL (30-55); Mean Corpuscular Volume 69.8 fl (85-98); Monocytes # 0.7 10^3/uL (0.2-0.9); Neutrophils # 15.79 10^3/uL (1.8-7.7); Neutrophils % 90.4 %; Nucleated Red Blood Cells % 0 %; Platelet Count 276 10^3/cmm (157-399); Red Blood Count 3.31 10^6/uL (3.85-5.65); Red Cell Distribution Width 15.6 % (12.1-15.1); White Blood Count 17.45 10^3/uL (3.29-11.43)
--- NOTE | 2023-08-17 13:25 | P.PN_ITS ---
Subjective 2 Subjective: Patient seen and examined. Still having abdominal pain. Tolerating diet Vitals/I&O/Wt Last Vital Signs Temp 99.7 F H 08/17/23 04:00 Pulse 84 08/17/23 11:00 Resp 22 H 08/17/23 12:27 BP 112/70 08/17/23 11:00 Pulse Ox 93 08/17/23 12:27 O2 Del Method Room Air 08/17/23 11:00 O2 Flow Rate 10 08/15/23 14:12 08/16/23 08/17/23 08/17/23 22:59 06:59 14:59 Intake Total 290 / 1682.5 1307.5 / 2990.0 761.25 / 761.25 Output Total 120 / 540 470 / 470 Balance 290 / 1262.5 1187.5 / 2450.0 291.25 / 291.25 Weight last 48 hrs Weight 151 lb 8 oz Weight 151 lb 8 oz Weight 144 lb 12.8 oz Weight 144 lb 12.8 oz Weight 135 lb Physical Exam 2 Narrative: General: No acute distress, awake alert and oriented x 3 Abdomen: Soft, distended, appropriately tender Drain cloudy with serous Data 08/17/23 08:36 08/17/23 04:10 Micro: Microbiology 08/15/23 23:55 Urine Culture - Preliminary Urine,Clean Catch 08/15/23 15:55 Blood Culture - Preliminary Blood 08/15/23 15:50 Blood Culture - Preliminary Blood NEGATIVE TO DATE 08/15/23 09:05 Blood Culture - Preliminary Blood NEGATIVE TO DATE 08/15/23 09:00 Blood Culture - Preliminary Blood NEGATIVE TO DATE A&P Assessment and plan (1) Acute gangrenous appendicitis with perforation and peritonitis: (2) Acute anemia: Plan Antibiotics Regular diet Repeat hemoglobin after 12 hours Patient will need to stay in the hospital for 5 days for IV antibiotics due to the severity of her perforated appendicitis and peritonitis. I will repeat a CT of abdomen and pelvis prior to discharge Hospitalist following. Thank you for the recommendations Transfer to floor Attestations 2 Medical Necessity Statement*: Patient requires multiple more nights in the hospital for IV antibiotics and recovery after laparoscopic appendectomy for gangrenous and perforated appendicitis with peritonitis Coding Level of Care Code Acute Code for [facility] Fwd Diagnoses Acute gangrenous appendicitis with perforation and peritonitis K35.32 Acute anemia D64.9
[2023-08-17 14:15] LABS: Basophils % 0.2 %; Eosinophils # 0.1 10^3/uL (0.0-0.8); Eosinophils % 0.3 %; Hematocrit 23.9 % (36-47); Lymphocytes # 0.7 10^3/uL (0.8-4.8); Lymphocytes % 4.1 %; Mean Corpuscular HGB Conc 32.2 g/dL (30-55); Mean Corpuscular Hemoglobin 22.7 pg (27-33); Mean Corpuscular Volume 70.5 fl (85-98); Mean Platelet Volume 10.3 fL (7.4-10.4); Monocytes # 0.7 10^3/uL (0.2-0.9); Neutrophils # 16.02 10^3/uL (1.8-7.7); Neutrophils % 90.6 %; Nucleated Red Blood Cells % 0 %; Platelet Count 300 10^3/cmm (157-399); Red Blood Count 3.39 10^6/uL (3.85-5.65); Red Cell Distribution Width 15.7 % (12.1-15.1); White Blood Count 17.69 10^3/uL (3.29-11.43)
--- NOTE | 2023-08-17 14:26 | PC.NURSE ---
Report called to ALEX Kemp. Patient and belongings taken to room 257-1. Patient has notified family via cellphone.
--- NOTE | 2023-08-17 14:36 | P.PN_ITS ---
Subjective 2 Subjective: patient was seen this morning, she denies any nausea, no vomiting, is passing gas from below has not had a bowel movement, she did have low-grade temperatures early in the morning, Vitals/I&O/Wt Last Vital Signs Temp 99.7 F H 08/17/23 04:00 Pulse 82 08/17/23 13:30 Resp 22 H 08/17/23 13:30 BP 118/72 08/17/23 13:30 Pulse Ox 92 08/17/23 13:30 O2 Del Method Room Air 08/17/23 13:00 O2 Flow Rate 10 08/15/23 14:12 08/16/23 08/17/23 08/17/23 22:59 06:59 14:59 Intake Total 290 / 1682.5 1307.5 / 2990.0 1121.25 / 1121.25 Output Total 120 / 540 510 / 510 Balance 290 / 1262.5 1187.5 / 2450.0 611.25 / 611.25 Weight last 48 hrs Weight 68.719 kg Weight 68.719 kg Weight 65.68 kg Weight 65.68 kg Weight 61.235 kg Physical Exam 2 Const: COMMON NORMALS: no acute distress and patient oriented x3 Resp: COMMON NORMALS: normal respiratory effort, No retractions, No use of accessory muscles and clear to auscultation bilaterally AUSCULTATION: clear to auscultation bilaterally Cardio: COMMON NORMALS: regular rate, regular rhythm, S1 normal heart sound present and S2 normal heart sound present RATE: regular rate RHYTHM: r egular rhythm HEART SOUNDS: S1 normal heart sound present and S2 normal heart sound present GI: OTHER: Abdomen soft, distended, good bowel sounds, no guarding, rebound, rigidity, surgical site looks clean dry, GAMAL drain in place Extremity: COMMON NORMALS: no calf tenderness Neuro: COMMON NORMALS: patient oriented x3 Psych: COMMON NORMALS: mental status grossly normal Data 08/17/23 13:59 08/17/23 04:10 Micro: Microbiology 08/15/23 23:55 Urine Culture - Preliminary Urine,Clean Catch 08/15/23 15:55 Blood Culture - Preliminary Blood 08/15/23 15:50 Blood Culture - Preliminary Blood NEGATIVE TO DATE A&P Assessment and plan (1) Appendicitis: (2) Septic shock: (3) No pertinent past medical history: (4) Acute gangrenous appendicitis with perforation and peritonitis: (5) Gram-negative bacteremia: Plan Acute gangrenous and perforated appendicitis ? Status post laparoscopic appendectomy ? GAMAL drain in place, ? Was on pressors in the emergency room received IV antibiotics, received IV fluids -1 blood culture, positive for gram negative rods, gram negative bactremia ? Plan ?move to [facility] ? Off pressors ? Monitor hemodynamics closely ? Continue Dilaudid for pain control -Continue Zosyn -follow blood cultures ? Full code ? Heparin for DVT prophylaxis Septated cystic lesion right adnexa for which follow-up ultrasound is recommended ? Has a family history of ovarian cancer ? Will obtain a CA125, elevated, will need to follow-up with Field Associate as outpatient -Will have patient follow-up with gynecology as outpatient Attestations 2 Medical Necessity Statement*: patient equires hospitalization for gram-negative bacteremia, perforated appendicitis, requiring IV antibiotics Diagnoses Appendicitis K37 Septic shock A41.9; R65.21 No pertinent past medical history Z78.9 Acute gangrenous appendicitis with perforation and peritonitis K35.32 Gram-negative bacteremia R78.81
[2023-08-18] VITALS (12 sets, daily range): BP systolic 111–131; BP diastolic 69–88; PULSE 73–87; RESP 15–20; TEMP 36.4–37.6; O2SAT 90–96
[2023-08-18] MEDS: piperacillin-tazobactam 3.375 GM in sodium chloride 0.9% (plus) 50 ML IV ×3 (00:52→17:44)
[2023-08-18] MEDS: HYDROmorphone 1 mg/mL INJ 1 mL IVP ×4 (02:19→19:43)
[2023-08-18] MEDS: HYDROcodone-acetaminophen 5-325 mg Tablet 1 TAB PO ×4 (05:02→22:53)
[2023-08-18 06:06] LABS: Basophils % 0.2 %; Eosinophils # 0.1 10^3/uL (0.0-0.8); Eosinophils % 0.4 %; Hematocrit 23.2 % (36-47); Lymphocytes # 0.8 10^3/uL (0.8-4.8); Lymphocytes % 5.6 %; Mean Corpuscular HGB Conc 32.8 g/dL (30-55); Mean Corpuscular Hemoglobin 22.7 pg (27-33); Mean Corpuscular Volume 69.3 fl (85-98); Mean Platelet Volume 10.1 fL (7.4-10.4); Monocytes # 0.7 10^3/uL (0.2-0.9); Monocytes % 4.9 %; Neutrophils # 13.04 10^3/uL (1.8-7.7); Neutrophils % 88.2 %; Nucleated Red Blood Cells % 0 %; Platelet Count 307 10^3/cmm (157-399); Red Blood Count 3.35 10^6/uL (3.85-5.65); Red Cell Distribution Width 15.3 % (12.1-15.1); White Blood Count 14.78 10^3/uL (3.29-11.43)
[2023-08-18 06:26] LABS: Anion Gap 15.6 (5-19); Blood Urea Nitrogen 8 mg/dL (6-20); Calcium 7.9 mg/dL (8.5-10.5); Carbon Dioxide 21 mmol/L (22-29); Chloride 104 mmol/L (98-107); Creatinine Clr Calc Pharmacy 108.2588; Glomerular Filtration Rate 90.5 mL/min (90-130); Glucose 125 mg/dL (65-115); Magnesium 1.9 mg/dL (1.7-2.3); Osmolality Calculated 284 mOsm/kg (285-295); Potassium 3.6 mmol/L (3.5-5.1); Sodium 137 mmol/L (136-145)
[2023-08-18] MEDS: pantoprazole DR 40 mg Tablet PO (09:36)
[2023-08-18] MEDS: docusate sodium 100 mg Capsule PO ×2 (09:36→17:44)
[2023-08-18] MEDS: heparin 5,000 unit/mL INJ 1 mL 5000 UNIT SUBCUT ×3 (09:36→22:53)
--- NOTE | 2023-08-18 12:38 | P.PN_ITS ---
Subjective 2 Subjective: Patient was seen this morning, she complains of lack of stooling, for the last 3 days her flatus was also has decreased this morning she does complain of abdominal distention abdominal pain, diffusely, feels a bit nauseous, no vomiting, does have a poor appetite, she did not get much sleep during the night, she did report subjective fever overnight, denies any lightheadedness, no dizziness, Vitals/I&O/Wt Last Vital Signs Temp 97.6 F 08/18/23 08:00 Pulse 85 08/18/23 08:00 Resp 16 08/18/23 08:00 BP 122/77 08/18/23 08:00 Pulse Ox 94 08/18/23 08:00 O2 Del Method Room Air 08/18/23 08:00 O2 Flow Rate 2 08/18/23 04:00 08/17/23 08/18/23 08/18/23 22:59 06:59 14:59 Intake Total 396.75 / 1518.00 290 / 1808.00 240 / 240 Output Total 260 / 260 Balance 396.75 / 1008.00 290 / 1298.00 -20 / -20 Weight last 48 hrs Weight 73.074 kg Weight 68.719 kg Weight 68.719 kg Physical Exam 2 Const: COMMON NORMALS: no acute distress and patient oriented x3 Resp: COMMON NORMALS: normal respiratory effort, No retractions, No use of accessory muscles and clear to auscultation bilaterally AUSCULTATION: clear to auscultation bilaterally Cardio: COMMON NORMALS: regular rate, regular rhythm, S1 normal heart sound present and S2 normal heart sound present RATE: regular rate RHYTHM: r egular rhythm HEART SOUNDS: S1 normal heart sound present and S2 normal heart sound present GI: OTHER: Abdomen soft, distended, diminished bowel sounds, diffuse tenderness, no guarding, rebound, rigidity, GAMAL drain in place Extremity: COMMON NORMALS: no pedal edema Neuro: COMMON NORMALS: patient oriented x3 Psych: COMMON NORMALS: mental status grossly normal Data 08/18/23 05:47 08/18/23 05:47 Micro: Microbiology 08/15/23 23:55 Urine Culture - Final Urine,Clean Catch A&P Assessment and plan (1) Appendicitis: (2) Septic shock: (3) No pertinent past medical history: (4) Acute gangrenous appendicitis with perforation and peritonitis: (5) Gram-negative bacteremia: Plan Acute gangrenous and perforated appendicitis ? Status post laparoscopic appendectomy ? GAMAL drain in place, ? Was on pressors in the emergency room received IV antibiotics, received IV fluids, resolved -1 blood culture, positive for gram negative rods, gram negative bactremia ? Plan ?move to [facility] ? Off pressors ? Monitor hemodynamics closely ? Continue Dilaudid for pain control -Continue Zosyn -follow blood cultures, 1 blood culture positive for gram-negative rods, ? Full code ? Heparin for DVT prophylaxis Septated cystic lesion right adnexa for which follow-up ultrasound is recommended ? Has a family history of ovarian cancer ? Will obtain a CA125, elevated, will need to follow-up with Drawing Machine Operator as outpatient -Will have patient follow-up with gynecology as outpatient Gram-negative bacteremia continue Zosyn, follow-up repeat blood cultures, due to her persistent abdominal pain lack of stooling will repeat CT scan abdomen pelvis with IV contrast to evaluate for abscess possible abscess, persistent anemia, check B12, folic acid, iron levels Attestations 2 Medical Necessity Statement*: Patient requires hospitalization for acute gangrenous perforated appendicitis, Diagnoses Appendicitis K37 Septic shock A41.9; R65.21 No pertinent past medical history Z78.9 Acute gangrenous appendicitis with perforation and peritonitis K35.32 Gram-negative bacteremia R78.81
--- NOTE | 2023-08-18 12:39 | CTR_ITS ---
PROCEDURE INFORMATION: Exam: CT Abdomen And Pelvis With Contrast Exam date and time: 08/18/2023 1:36 PM Age: 43 years old Clinical indication: Abdominal pain; Prior surgery; Surgery date: Post-operative (0-2 days); Surgery type: Appendectomy; Additional info: Abdominal pain, post op for per appendicits, abscess TECHNIQUE: Imaging protocol: Computed tomography of the abdomen and pelvis with contrast. Radiation optimization: All CT scans at this facility use at least one of these dose optimization techniques: automated exposure control; mA and/or kV adjustment per patient size (includes targeted exams where dose is matched to clinical indication); or iterative reconstruction. Contrast material: [id number]; Contrast volume: 100 ml; Contrast route: INTRAVENOUS (IV); COMPARISON: CT abdomen pelvis w con* [id number] 08/15/2023 7:24 AM RADIATION DOSE METRICS: Total DLP (mGy-cm): 446.83 FINDINGS: Tubes, catheters and devices: Postsurgical drain placed via the left mid anterior abdominal wall terminates in the right posterolateral mid abdomen adjacent to the distal tip of the right hepatic lobe. Lungs: Dependent atelectatic changes in the lower lobes. Pleural spaces: Mild bilateral pleural effusions. Liver: Enlarged or elongated (21.8 cm in the craniocaudal span). No mass. Gallbladder and biliary ducts: Normal. No calcified stones. No ductal dilation. Pancreas: Normal. No ductal dilation. Spleen: Normal in size. No mass. Adrenal glands: Normal. No mass. Kidneys and ureters: The kidneys are normal in size with preserved parenchyma. No mass. No hydronephrosis or hydroureter. Stomach and bowel: Proximal small bowel is dilated to 4.5 cm with air-fluid level suggestive of partial mechanical obstruction. There is mild wall thickening in the normal caliber loops of distal ileum adjacent to right lower quadrant abscess. There is gradual rather than sharp transition point between distended and normal caliber bowel. There is no abnormal dilatation of the colon. Appendix: Absent. Intraperitoneal space: Trace amount of free intraperitoneal air expected on day 3 after appendectomy. There is trace amount of free intraperitoneal fluid. There are 2 loculated pockets of intraperitoneal fluid with peripheral enhancement of the peritoneal lining suggestive of pockets of peritonitis. Smaller irregular shaped pocket in the right lower abdomen in the resection bed of the appendix behind the loops of distal ileum measures 2 cm in thickness, 4 cm in oblique anterior-posterior diameter, and 2.5 cm in the craniocaudal span. The larger pocket in the cul-de-sac measures 4 cm in anterior-posterior diameter, 9.5 cm in [id number] diameter, 4.2 cm in the craniocaudal span. Vasculature: No abdominal aortic aneurysm. Lymph nodes: No enlarged lymph nodes. Urinary bladder: Unremarkable as visualized. Reproductive: The uterus in the left ovary are unremarkable. Stable 2 cm cyst in the right ovary likely represents physiologic follicular cyst. Bones/joints: No acute fracture. No dislocation. No suspicious lytic or sclerotic bone lesions. Soft tissues: There is new edema of the subcutaneous fat in the lower chest wall, in the abdominal wall and in the proximal thighs. Trace amount of air in the bilateral anterior abdominal wall is expected finding on day [address]/CT abdomen pelvis w con* [id number] IMPRESSION: 1. There are 2 loculated pockets of peritonitis in the cul-de-sac and in the right lower quadrant in the resection bed of the appendix. Postsurgical drain is passing anteriorly and inferiorly to these pockets. There is expected trace amount of free intraperitoneal fluid and air expected on day 3 after surgery. 2. There is fluid retention with new soft tissue edema, new small bilateral pleural effusions. There are passive dependent atelectatic changes in the lung bases. THIS REPORT CONTAINS FINDINGS THAT MAY BE CRITICAL TO PATIENT CARE. The findings were verbally communicated via telephone conference with Dr. Isidro at 3:37 PM CDT on 08/18/2023. The findings were acknowledged and understood.
[2023-08-18 14:52] LABS: Erythrocyte Sedimentation Rate 89 mm/hr (0-15)
[2023-08-18 15:07] LABS: C Reactive Protein 120.6 mg/L (0.0-4.9); Ferritin 176 ng/mL (15-150); Iron 17 ug/dL (37-145)
[2023-08-18 15:11] LABS: HCG, Serum Qual Negative (Negative)
[2023-08-18 15:23] LABS: Procalcitonin 5.04 ng/mL (0-0.5); Vitamin B12 642 pg/mL (232-1245)
--- NOTE | 2023-08-18 17:44 | P.PN_ITS ---
Subjective 2 Subjective: Patient seen and examined. She has persistent abdominal pain but she reports that she is doing much better. She did have a small bowel movement today. A CT of the abdomen pelvis was repeated and shows an abscess forming in the pelvis. Vitals/I&O/Wt Last Vital Signs Temp 98.6 F 08/18/23 16:00 Pulse 81 08/18/23 16:00 Resp 15 08/18/23 16:00 BP 131/88 08/18/23 16:00 Pulse Ox 96 08/18/23 16:00 O2 Del Method Room Air 08/18/23 16:00 O2 Flow Rate 2 08/18/23 04:00 08/18/23 08/18/23 08/18/23 06:59 14:59 22:59 Intake Total 290 / 1808.00 290 / 290 Output Total 260 / 260 Balance 290 / 1298.00 30 / 30 Weight last 48 hrs Weight 161 lb 1.6 oz Weight 151 lb 8 oz Weight 151 lb 8 oz Physical Exam 2 Narrative: General: No acute distress, awake alert and oriented x 3 Abdomen: Soft, distended, appropriately tender Drain cloudy serous Data 08/18/23 05:47 08/18/23 05:47 Micro: Microbiology 08/18/23 14:15 Blood Culture - Preliminary Blood SPECIMEN COLLECTED 08/18/23 14:11 Blood Culture - Preliminary Blood SPECIMEN COLLECTED 08/15/23 23:55 Urine Culture - Final Urine,Clean Catch A&P Assessment and plan (1) Acute gangrenous appendicitis with perforation and peritonitis: (2) Acute anemia: (3) Septic shock: Resolved (4) Gram-negative bacteremia: Plan Antibiotics Regular diet She is developing a pelvic abscess. I repeatedly warned her this may have been due to the severity of her disease. I will consult interventional radiology on Sunday for possible drainage. It looks like the large abscess in her pelvis can be drained, possibly through her buttocks. Celia nightly Hospitalist following. Thank you for the recommendations Attestations 2 Medical Necessity Statement*: Patient requires multiple more nights in the hospital for treatment of bacteremia and pelvic abscess forming after acute gangrenous and perforated appendicitis with peritonitis. IR drain will be ordered on Sunday Coding Level of Care Code Acute Code for [facility] Fwd Diagnoses Acute gangrenous appendicitis with perforation and peritonitis K35.32 Acute anemia D64.9 Septic shock A41.9; R65.21 Gram-negative bacteremia R78.81
[2023-08-18 19:33] LABS: Alanine Aminotransferase 14 U/L (0-33); Albumin Level 3.3 g/dL (3.5-5.2); Alkaline Phosphatase 159 U/L (35-105); Anion Gap 15.2 (5-19); Aspartate Amino Transferase 23 U/L (0-32); Blood Urea Nitrogen 7 mg/dL (6-20); Calcium 8.5 mg/dL (8.5-10.5); Carbon Dioxide 25 mmol/L (22-29); Chloride 101 mmol/L (98-107); Creatinine Clr Calc Pharmacy 108.2588; Gamma Glutamyl Transferase 47 U/L (5-36); Globulin 3.3 g/dL (1.3-4.6); Glomerular Filtration Rate 90.5 mL/min (90-130); Glucose 124 mg/dL (65-115); Osmolality Calculated 285 mOsm/kg (285-295); Potassium 3.2 mmol/L (3.5-5.1); Sodium 138 mmol/L (136-145); Total Bilirubin 0.5 mg/dL (0.15-1.2); Total Protein 6.6 g/dL (6.6-8.7)
[2023-08-18] MEDS: magnesium hydroxide 30 mL UDC PO (19:42)
[2023-08-18] MEDS: meropenem 1,000 MG in sodium chloride 0.9% (plus) 50 ML 100 MG IV (19:43)
[2023-08-18 19:47] LABS: HIV 1 & 2 Antibody Non-Reactive (Non-Reactiv); HIV 1 & 2 Antigen Non-Reactive (Non-Reactiv)
[2023-08-18 21:40] LABS: Hepatitis A Antibody IgM Non-Reactive (Nonreactive); Hepatitis B Core IgM Non-Reactive (Nonreactive); Hepatitis B Surface Antigen Non-Reactive (Nonreactive); Hepatitis C Virus Antibody Non-Reactive (Nonreactive)
[2023-08-19] VITALS (12 sets, daily range): BP systolic 111–125; BP diastolic 71–77; PULSE 69–85; RESP 16–18; TEMP 36.6–37.5; O2SAT 93–96
[2023-08-19] MEDS: meropenem 1,000 MG in sodium chloride 0.9% (plus) 50 ML 100 MG IV ×3 (03:01→20:35)
[2023-08-19] MEDS: HYDROcodone-acetaminophen 5-325 mg Tablet 1 TAB PO ×5 (03:01→23:07)
[2023-08-19 05:32] LABS: Reflex FDPQ test REFLEX FDP QUEST TES
[2023-08-19 05:33] LABS: Basophils % 0.3 %; Eosinophils # 0.2 10^3/uL (0.0-0.8); Eosinophils % 1.6 %; Hematocrit 22.6 % (36-47); Lymphocytes % 8.6 %; Mean Corpuscular HGB Conc 33.6 g/dL (30-55); Mean Corpuscular Hemoglobin 22.9 pg (27-33); Mean Corpuscular Volume 68.1 fl (85-98); Mean Platelet Volume 9.7 fL (7.4-10.4); Monocytes % 8.7 %; Neutrophils # 9.45 10^3/uL (1.8-7.7); Neutrophils % 80.5 %; Nucleated Red Blood Cells % 0 %; Platelet Count 336 10^3/cmm (157-399); Red Blood Count 3.32 10^6/uL (3.85-5.65); Red Cell Distribution Width 14.7 % (12.1-15.1); White Blood Count 11.74 10^3/uL (3.29-11.43)
[2023-08-19 05:48] LABS: INR 0.98 (0.8-1.2)
[2023-08-19 05:49] LABS: Fibrinogen 726 mg/dL (174-498); Partial Thromboplastin Time 31.6 SECONDS (23.9-36.7)
--- NOTE | 2023-08-19 05:54 | PC.NURSE ---
Dr. Isidro called and asked that I make patient NPO.
[2023-08-19 05:55] LABS: C Reactive Protein 97.3 mg/L (0.0-4.9); Creatine Phosphokinase 172 U/L (26-192); Magnesium 1.9 mg/dL (1.7-2.3); Phosphorus 3.1 mg/dL (2.5-4.5)
[2023-08-19 05:59] LABS: D Dimer 15.21 ug/mLFEU (0-0.59); Lactate (Lactic Acid level) 0.7 mmol/L (0.5-2.2)
[2023-08-19 06:01] LABS: Alanine Aminotransferase 14 U/L (0-33); Albumin Level 3.1 g/dL (3.5-5.2); Alkaline Phosphatase 141 U/L (35-105); Anion Gap 14.3 (5-19); Aspartate Amino Transferase 24 U/L (0-32); Blood Urea Nitrogen 7 mg/dL (6-20); Calcium 8.1 mg/dL (8.5-10.5); Carbon Dioxide 26 mmol/L (22-29); Chloride 104 mmol/L (98-107); Creatinine Clr Calc Pharmacy 126.1659; Globulin 2.3 g/dL (1.3-4.6); Glomerular Filtration Rate 108.1 mL/min (90-130); Glucose 101 mg/dL (65-115); Osmolality Calculated 290 mOsm/kg (285-295); Potassium 3.3 mmol/L (3.5-5.1); Sodium 141 mmol/L (136-145); Total Bilirubin 0.5 mg/dL (0.15-1.2); Total Protein 5.4 g/dL (6.6-8.7)
[2023-08-19 06:02] LABS: Procalcitonin 3.72 ng/mL (0-0.5)
[2023-08-19] MEDS: lidocaine 1% 5 ML in potassium chloride premix 100 ML 52.5 ML IV (09:21)
[2023-08-19] MEDS: pantoprazole DR 40 mg Tablet PO (10:10)
[2023-08-19] MEDS: HYDROmorphone 1 mg/mL INJ 1 mL IVP ×3 (10:10→21:48)
[2023-08-19] MEDS: docusate sodium 100 mg Capsule PO ×2 (10:10→15:47)
--- NOTE | 2023-08-19 10:18 | P.PN_ITS ---
Subjective 2 Subjective: Patient seen and examined. Abdominal pain improved but still present. She had a bowel movement yesterday Vitals/I&O/Wt Last Vital Signs Temp 98.4 F 08/19/23 08:28 Pulse 69 08/19/23 08:28 Resp 18 08/19/23 10:10 BP 125/72 08/19/23 08:28 Pulse Ox 95 08/19/23 08:28 O2 Del Method Room Air 08/19/23 08:28 O2 Flow Rate 2 08/18/23 04:00 08/18/23 08/19/23 08/19/23 22:59 06:59 14:59 Intake Total 340.000 / 630.000 290 / 920.000 Output Total 80 / 340 115 / 455 60 / 60 Balance 260.000 / 290.000 175 / 465.000 -60 / -60 Weight last 48 hrs Weight 160 lb 11.2 oz Weight 161 lb 1.6 oz Physical Exam 2 Narrative: General: No acute distress, awake alert and oriented x 3 Abdomen: Soft, distended, mild diffuse tenderness, no guarding or rebound Drain serous Data 08/19/23 05:12 08/19/23 05:12 Micro: Microbiology 08/18/23 14:15 Blood Culture - Preliminary Blood SPECIMEN COLLECTED 08/18/23 14:11 Blood Culture - Preliminary Blood SPECIMEN COLLECTED 08/15/23 23:55 Urine Culture - Final Urine,Clean Catch A&P Assessment and plan (1) Acute gangrenous appendicitis with perforation and peritonitis: (2) Acute anemia: (3) Septic shock: Resolved (4) Gram-negative bacteremia: Plan Postoperative day #4 status post laparoscopic appendectomy for acute gangrenous appendicitis with perforation and peritonitis who presented in septic shock with bacteremia Meropenem R clear liquid diet CT done yesterday afternoon showed intra-abdominal abscesses forming. I have been explained to the patient that there was a high likelihood this could happen due to the severity of her disease upon presentation. According to the partition making machine operator, there is no one available at this hospital for IR procedures until Sunday. Transfer process to [facility] for IR drainage has begun. They do not believe they will be able to get her in until Sunday. I will keep her on clear liquid diet for now. In the morning I will discuss with Dr. Tobias, the radiologist working on staff but not scheduled for IR procedures, if he can perform the procedure tomorrow. Anticipate return the patient after IR drainage Milk [employer] Efren rothly Hospitalist following. Thank you for the recommendations Attestations 2 Medical Necessity Statement*: Patient requires multiple nights in the hospital for IV antibiotics and IR drainage of intra-abdominal abscesses following laparoscopic appendectomy for acute gangrenous appendicitis with perforation and peritonitis who presented in septic shock with bacteremia Coding Level of Care Code Acute Code for [facility] Fwd Diagnoses Acute gangrenous appendicitis with perforation and peritonitis K35.32 Acute anemia D64.9 Septic shock A41.9; R65.21 Gram-negative bacteremia R78.81
--- NOTE | 2023-08-19 11:55 | PM.PN ---
Subjective Subjective: Patient was seen this morning, I did detailed discussion with her about CT scan findings, my concerns for her developing abscesses that will need urgent draining, I have spoken to general surgery this morning were having difficulty finding IR to immediately drain it, were having issues with finding a IR immediately available to drain it on Sunday, options I have discussed with surgery about transferring her to tertiary level center for IR guided drainage of 2 abscesses, versus potentially setting up IR drainage here on Sunday if possible, patient would prefer to have it done in a timely fashion, she would prefer [facility] rather than [facility] as she has had a bad experience with [facility], if she needs to be transferred, we discussed broadening her antibiotic coverage to meropenem, we discussed her need for long-term IV antibiotics, depending on what her blood cultures show, likely will need PICC line placed, but the first step is to have IR drain that he is developing abscesses, she voiced understanding, all questions answered, so far she has been afebrile, but did have a low-grade temperature late last night, she is normotensive she is on room air, her abdominal pain is minimal, she did have a small bowel movement yesterday, but only scant, she tells me that she feels a lot of lower abdominal pressure, she feels like she needs to go but cannot, Vitals/I&O/Wt Last Vital Signs Temp 98.4 F 08/19/23 08:28 Pulse 69 08/19/23 08:28 Resp 18 08/19/23 10:10 BP 125/72 08/19/23 08:28 Pulse Ox 95 08/19/23 08:28 O2 Del Method Room Air 08/19/23 08:28 O2 Flow Rate 2 08/18/23 04:00 08/18/23 08/19/23 08/19/23 22:59 06:59 14:59 Intake Total 340.000 / 630.000 290 / 920.000 Output Total 80 / 340 115 / 455 60 / 60 Balance 260.000 / 290.000 175 / 465.000 -60 / -60 Weight last 48 hrs Weight 72.892 kg Weight 73.074 kg Physical Exam Const: COMMON NORMALS: no acute distress and patient oriented x3 Resp: COMMON NORMALS: normal respiratory effort, No retractions, No use of accessory muscles and clear to auscultation bilaterally AUSCULTATION: clear to auscultation bilaterally Cardio: COMMON NORMALS: regular rate, regular rhythm, S1 normal heart sound present and S2 normal heart sound present RATE: regular rate RHYTHM: regular rhythm HEART SOUNDS: S1 normal heart sound present and S2 normal heart sound present GI: OTHER: Abdomen soft, distended, scattered bowel bowel sounds, no guarding, no rebound, no rigidity Extremity: COMMON NORMALS: no pedal edema Neuro: COMMON NORMALS: patient oriented x3 Psych: COMMON NORMALS: mental status grossly normal Data 08/19/23 05:12 08/19/23 05:12 Micro: Microbiology 08/18/23 14:15 Blood Culture - Preliminary Blood SPECIMEN COLLECTED 08/18/23 14:11 Blood Culture - Preliminary Blood SPECIMEN COLLECTED 08/15/23 23:55 Urine Culture - Final Urine,Clean Catch A&P Assessment and plan (1) Appendicitis: (2) Septic shock: (3) No pertinent past medical history: (4) Acute gangrenous appendicitis with perforation and peritonitis: (5) Gram-negative bacteremia: (6) Intra-abdominal abscess: Plan Acute gangrenous and perforated appendicitis ? Status post laparoscopic appendectomy ? GAMAL drain in place, ? Was on pressors in the emergency room received IV antibiotics, received IV fluids, resolved -1 blood culture, positive for gram negative rods, gram negative bactremia ? Plan [facility] ? Off pressors ? Monitor hemodynamics closely -repeat ct scan abdomen/pelvis shows - CT/CT abdomen pelvis w con* [id number] IMPRESSION: 1. There are 2 loculated pockets of peritonitis in the cul-de-sac and in the right lower quadrant in the resection bed of the appendix. Postsurgical drain is passing anteriorly and inferiorly to these pockets. There is expected trace amount of free intraperitoneal fluid and air expected on day 3 after surgery. 2. There is fluid retention with new soft tissue edema, new small bilateral pleural effusions. There are passive dependent atelectatic changes in the lung bases. ? Continue Dilaudid for pain control -Antibiotic coverage expanded to meropenem -follow blood cultures, 1 blood culture positive for gram-negative rods, -Working on transfer to tertiary level center for IR guided drainage of fluid pockets versus drainage here possibly tomorrow ? Full code ? Heparin for DVT prophylaxis Septated cystic lesion right adnexa for which follow-up ultrasound is recommended ? Has a family history of ovarian cancer ? Will obtain a CA125, elevated, will need to follow-up with Hydroelectric Systems Technician as outpatient -Will have patient follow-up with gynecology as outpatient Urine shows trichomonas species, on meropenem Plan for today continue meropenem, serial abdominal exams, awaiting IR guided drainage Attestations Medical Necessity Statement*: Patient requires hospitalization for acute gangrenous and perforated appendicitis, with developing intra-abdominal abscess, gram-negative bacteremia Diagnoses Appendicitis K37 Septic shock A41.9; R65.21 No pertinent past medical history Z78.9 Acute gangrenous appendicitis with perforation and peritonitis K35.32 Gram-negative bacteremia R78.81 Intra-abdominal abscess K65.1
[2023-08-19] MEDS: heparin 5,000 unit/mL INJ 1 mL 5000 UNIT SUBCUT ×2 (15:45→23:07)
[2023-08-19] MEDS: magnesium hydroxide 30 mL UDC PO (20:35)
[2023-08-20] VITALS (17 sets, daily range): BP systolic 115–144; BP diastolic 66–90; PULSE 70–106; RESP 16–18; TEMP 36.6–37.3; O2SAT 91–96
[2023-08-20] MEDS: HYDROmorphone 1 mg/mL INJ 1 mL IVP ×5 (02:46→21:17)
[2023-08-20] MEDS: meropenem 1,000 MG in sodium chloride 0.9% (plus) 50 ML 100 MG IV ×2 (04:15→16:59)
[2023-08-20] MEDS: HYDROcodone-acetaminophen 5-325 mg Tablet 1 TAB PO ×3 (04:57→19:49)
[2023-08-20] MEDS: heparin 5,000 unit/mL INJ 1 mL 5000 UNIT SUBCUT ×3 (06:31→22:53)
[2023-08-20 06:32] LABS: Basophils % 0.4 %; Eosinophils # 0.2 10^3/uL (0.0-0.8); Eosinophils % 2.3 %; Lymphocytes # 1.5 10^3/uL (0.8-4.8); Lymphocytes % 14.3 %; Mean Corpuscular HGB Conc 33.6 g/dL (30-55); Mean Corpuscular Hemoglobin 22.5 pg (27-33); Mean Corpuscular Volume 66.9 fl (85-98); Mean Platelet Volume 9.7 fL (7.4-10.4); Monocytes # 1.1 10^3/uL (0.2-0.9); Monocytes % 10.8 %; Neutrophils # 7.39 10^3/uL (1.8-7.7); Neutrophils % 71.5 %; Nucleated Red Blood Cells % 0 %; Platelet Count 393 10^3/cmm (157-399); Red Blood Count 3.29 10^6/uL (3.85-5.65); Red Cell Distribution Width 14.7 % (12.1-15.1); White Blood Count 10.34 10^3/uL (3.29-11.43)
[2023-08-20 06:51] LABS: C Reactive Protein 67.3 mg/L (0.0-4.9); Lactate (Lactic Acid level) 0.7 mmol/L (0.5-2.2); Magnesium 2.2 mg/dL (1.7-2.3); Phosphorus 2.8 mg/dL (2.5-4.5)
[2023-08-20 06:58] LABS: Procalcitonin 1.79 ng/mL (0-0.5)
[2023-08-20 07:34] LABS: Alanine Aminotransferase 20 U/L (0-33); Albumin Level 2.9 g/dL (3.5-5.2); Alkaline Phosphatase 219 U/L (35-105); Anion Gap 14.4 (5-19); Aspartate Amino Transferase 29 U/L (0-32); Blood Urea Nitrogen 5 mg/dL (6-20); Calcium 7.9 mg/dL (8.5-10.5); Carbon Dioxide 27 mmol/L (22-29); Chloride 102 mmol/L (98-107); Creatinine Clr Calc Pharmacy 149.9752; Globulin 2.2 g/dL (1.3-4.6); Glomerular Filtration Rate 133.4 mL/min (90-130); Glucose 93 mg/dL (65-115); Osmolality Calculated 287 mOsm/kg (285-295); Potassium 3.4 mmol/L (3.5-5.1); Sodium 140 mmol/L (136-145); Total Bilirubin 0.4 mg/dL (0.15-1.2); Total Protein 5.1 g/dL (6.6-8.7)
[2023-08-20] MEDS: pantoprazole DR 40 mg Tablet PO (08:49)
[2023-08-20] MEDS: docusate sodium 100 mg Capsule PO ×2 (08:49→18:43)
--- NOTE | 2023-08-20 11:09 | CT_ITS ---
WS: [id number] CT-GUIDED PELVIC DRAIN PLACEMENT INDICATION: Pelvic abscess post appendectomy TECHNIQUE: The procedure, including risks, benefits, and complications were discussed with the patien t who agreed to proceed. Using sterile technique, patient was prepped and draped in usual sterile fas hion. Timeout was performed. Anesthesia was present for sedation. After 1% lidocaine, using CT [employer], a 17-gauge coaxial biopsy needle was advanced into the pelvic fluid collection. Approximately 20 to 30 cc of purulent fluid was aspirated. An 038 guidewire was advanced through the coaxial needle in to the pelvic fluid collection. Subsequently, using Seldinger technique, the coaxial needle was remov ed and the tract was dilated over the wire. Dilator was removed and an 8 Algerian pigtail drain was ins erted over the wire into the fluid collection. After confirmation of drain position, pigtail was lock ed and secured in place. Three-way stopcock was attached with accordion drain. CT/CT guided drainage [id number] IMPRESSION: 1. Uncomplicated CT-guided 8 Algerian pigtail pelvic drain placement 2. Recommend catheter flushing twice a day with 8cc normal saline until remova l
--- NOTE | 2023-08-20 13:38 | P.ANESASSM_ITS ---
Pre-Anesthetic Assessment Height/Weight: Height 3.99 m Weight 71.305 kg Temp Pulse Resp BP Pulse Ox O2 Del Method O2 Flow Rate 99.1 F 76 16 144/79 95 Room Air 2 08/20/23 11:53 08/20/23 11:53 08/20/23 11:53 08/20/23 11:53 08/20/23 11:53 08/20/23 11:53 08/18/23 04:00 Operation Date: 08/15/23 13:15 Proposed Procedures p Laparoscopic Appendectomy(Not Applicable) - Jd Isidro DO Operation Date: 08/20/23 13:[address] Drain Placement(Not Applicable) - Lamberto Tobias MD Familial anesthetic complications: None Was Beta Hayley taken within 24 hours: N/A Was Clonidine taken within 24 hours: N/A Last intake: Intake Last Liquid Date 08/20/23 Last Liquid Time 08:30 Last Solid Date 08/14/23 Last Solid Time 20:00 Social Tobacco and No alcohol Exam alert, oriented x 3, clear to auscultation bilaterally and regular rate & rhythm Airway Mallampati: Class I Dentition: chipped and other (poor dentition) Anesthetic Plan ASA status: 2 Anesthesia: MAC Risk of > 500 ml blood loss (7ml/kg in children): No Other Pertinent Information denies Nausea Medications/Allergies Home Medications Medication Instructions Recorded Confirmed Last Taken Type No Known Home Medications 08/15/23 08/15/23 Unknown History Allergies Allergy/AdvReac Type Severity Reaction Status Date / Time No Known Allergies Allergy Verified 04/20/23 13:27 Current Medications Generic Name Dose Route Start Last Admin Trade Name Oli PRN Reason Stop Dose Admin Hydrocodone Bitart/Acetaminophen 1 tab 08/15/23 15:24 08/20/23 09:48 Hydrocodone-Acetaminophen 5-325 Mg Tablet PO 1 tab Q4H PRN Administration MODERATE PAIN Docusate Sodium 100 mg 08/15/23 18:00 08/20/23 08:49 Docusate Sodium 100 Mg Capsule PO 100 mg BID HIRAM Administration Heparin Sodium (Porcine) 5,000 unit 08/15/23 15:30 08/20/23 06:31 Heparin 5,000 Unit/Ml Inj 1 Ml SUBCUT 5,000 unit Q8H HIRAM Administration Hydromorphone HCl 1 mg 08/15/23 15:24 08/20/23 11:34 Hydromorphone 1 Mg/Ml Inj 1 Ml IVP 1 mg Q4H PRN Administration pain Meropenem 1,000 mg/ Sodium 50 mls @ 100 mls/hr 08/18/23 19:00 08/20/23 04:58 Chloride IV Infused Q8H HIRAM Infusion Protocol Magnesium Hydroxide 30 ml 08/18/23 21:00 08/19/23 20:35 Magnesium Hydroxide 30 Ml Udc PO 30 ml BEDTIME HIRAM Administration Pantoprazole Sodium 40 mg 08/16/23 09:00 08/20/23 08:[address] 40 Mg Tablet PO 40 mg DAILY HIRAM Administration PFSH Anesthesia Medical History (Updated 08/19/23 @ 12:32 by Rishabh Cohen MD) No pertinent past medical history Surgical History History of dilation and curettage Family History (Updated 08/15/23 @ 16:23 by Rishabh Cohen MD) Other CAD (coronary artery disease) Diabetes Ovarian cancer Social History (Updated 08/15/23 @ 16:20 by Rishabh Cohen MD) Smoking and tobacco/nicotine status: current every day tobacco/nicotine user Alcohol intake: never Substance/Drug Use: former Female Reproductive History Date of last menstrual period: 08/12/23 Data Anesthesia 08/20/23 05:22 08/20/23 05:22 Short CBC 08/19/23 08/20/23 Range/Units 05:12 05:22 WBC 11.74 H 10.34 (3.29-11.43) 10^3/uL Hgb 7.60 L 7.40 L (11.27-16.99) g/dL Hct 22.6 L 22.0 L (36-47) % MCV 68.1 L 66.9 L (85-98) fl Plt Count 336 393 (157-399) 10^3/cmm Neut % (Auto) 80.5 71.5 % Neut # (Auto) 9.45 H 7.39 (1.8-7.7) 10^3/uL BMP 08/18/23 08/19/23 08/20/23 18:35 05:12 05:22 Sodium 138 141 140 Potassium 3.2 L 3.3 L 3.4 L Chloride 101 104 102 Carbon Dioxide 25 26 27 BUN 7 7 5 L Creatinine 0.7 0.6 0.5 Glucose 124 H 101 93 Calcium 8.5 8.1 L 7.9 L Cardiac Enzymes 08/19/23 Range/Units 05:12 Creatine Kinase 172 (26-192) U/L Liver Function 08/18/23 08/19/23 08/20/23 Range/Units 18:35 05:12 05:22 Total Bilirubin 0.5 0.5 0.4 (0.15-1.2) mg/dL GGT 47 H (5-36) U/L AST 23 24 29 (0-32) U/L ALT 14 14 20 (0-33) U/L Alkaline Phosphatase 159 H 141 H 219 H (35-105) U/L Albumin 3.3 L 3.1 L 2.9 L (3.5-5.2) g/dL Coags 08/18/23 08/19/23 08/20/23 14:11 05:12 05:22 ESR 89 H PT 13.30 INR 0.98 APTT 31.6 Fibrinogen 726 H D-Dimer 15.21 H C-Reactive Protein 120.6 H 97.3 H 67.3 H Microbiology 08/15/23 09:05 Blood Culture - Final Blood NO GROWTH AFTER 5 DAYS 08/15/23 09:00 Blood Culture - Final Blood NO GROWTH AFTER 5 DAYS 08/15/23 15:55 Blood Culture - Preliminary Blood Anaerobic gram negative rods 08/18/23 14:15 Blood Culture - Preliminary Blood NEGATIVE TO DATE 08/18/23 14:11 Blood Culture - Preliminary Blood NEGATIVE TO DATE Cardiac Studies: 2 No Data to Display
--- NOTE | 2023-08-20 15:05 | ANE.PACU2 ---
Inpatient post-anesthesia follow up: Airway intact: Yes Vital signs: Temperature 99.3 F Pulse Rate 65 Respiratory Rate 18 Blood Pressure 115/71 Pulse Oximetry 95 Oxygen Delivery Me thod Room Air Oxygen Flow Rate 2 Fraction of Inspir ed Oxygen Hydration adequate: Yes Nausea and vomiting: No Pain level: 1 Mental status: Baseline
--- NOTE | 2023-08-20 16:10 | P.PN_ITS ---
Subjective 2 Subjective: Patient went for IR drainage of a pelvic abscess today. She reports that her pain has improved Vitals/I&O/Wt Last Vital Signs Temp 98.6 F 08/21/23 08:00 Pulse 72 08/21/23 08:00 Resp 16 08/21/23 08:00 BP 129/79 08/21/23 08:00 Pulse Ox 95 08/21/23 08:00 O2 Del Method Room Air 08/20/23 16:15 O2 Flow Rate 2 08/18/23 04:00 08/20/23 08/21/23 08/21/23 22:59 06:59 14:59 Intake Total 410 / 410 50 / 460 290 / 290 Output Total 80 / 80 Balance 410 / 410 -30 / 380 290 / 290 Weight last 48 hrs Weight 161 lb 6.4 oz Weight 157 lb 3.2 oz Physical Exam 2 Narrative: General: No acute distress, awake alert and oriented x 3 Abdomen: Soft, mildly distended, appropriately tender Ortiz drain-serous IR drain-purulent Data 08/21/23 05:06 08/21/23 05:06 Micro: Microbiology 08/15/23 15:50 Blood Culture - Final Blood NO GROWTH AFTER 5 DAYS 08/15/23 15:55 Blood Culture - Final Blood Bacteroi caccae(b fragilis grp 08/15/23 09:05 Blood Culture - Final Blood NO GROWTH AFTER 5 DAYS 08/15/23 09:00 Blood Culture - Final Blood NO GROWTH AFTER 5 DAYS A&P Assessment and plan (1) Acute gangrenous appendicitis with perforation and peritonitis: (2) Intra-abdominal abscess: (3) Septic shock: Resolved (4) Gram-negative bacteremia: (5) Acute anemia: Plan Postoperative day #5 status post laparoscopic appendectomy for acute gangrenous appendicitis with perforation and peritonitis who presented in septic shock with bacteremia Meropenem Regular diet She underwent IR drainage of pelvic abscess today Celia escobar Hospitalist following. Thank you for the recommendations Attestations 2 Medical Necessity Statement*: Continue admission for assessment of management of complicated appendicitis with abscess, requiring IR drainage, continue IV antibiotic. Coding Level of Care Code Acute Code for [facility] Diagnoses Acute gangrenous appendicitis with perforation and peritonitis K35.32 Intra-abdominal abscess K65.1 Septic shock A41.9; R65.21 Gram-negative bacteremia R78.81 Acute anemia D64.9
--- NOTE | 2023-08-20 20:43 | P.PN_ITS ---
Subjective 2 Subjective: She just underwent IR drainage of fluid collections, suspected abscess, states that she is little bit groggy after sedation. Vitals/I&O/Wt Last Vital Signs Temp 99.0 F 08/20/23 19:28 Pulse 86 08/20/23 19:28 Resp 18 08/20/23 19:28 BP 116/73 08/20/23 19:28 Pulse Ox 96 08/20/23 19:28 O2 Del Method Room Air 08/20/23 16:15 O2 Flow Rate 2 08/18/23 04:00 08/20/23 08/20/23 08/20/23 06:59 14:59 22:59 Intake Total 50 / 2215 290 / 290 Output Total 50 / 260 Balance 0 5 290 / 290 Weight last 48 hrs Weight 71.305 kg Weight 72.892 kg Physical Exam 2 Narrative: Sitting up in bed. Const: COMMON NORMALS: patient oriented x3 and alert GENERAL APPEARANCE: c ooperative ORIENTATION/CONSCIOUSNESS: Yes awake HENMT: COMMON NORMALS: oropharynx normal Neck/C-Spine: COMMON NORMALS: no JVD Resp: COMMON NORMALS: normal respiratory effort and clear to auscultation bilaterally AUSCULTATION: clear to auscultation bilaterally Cardio: COMMON NORMALS: no JVD, regular rhythm, S1 normal heart sound present, S2 normal heart sound present and No murmurs present (Cardio) RHYTHM: regular rhythm HEART SOUNDS: S1 normal heart sound present and S2 normal heart sound present GI: COMMON NORMALS: Soft to palpation PALPATION: Yes Soft to palpation Extremity: COMMON NORMALS: no joint enlargement and no pedal edema Neuro: COMMON NORMALS: patient oriented x3 and moves all extremities S ENSORIUM/ORIENTATION: Yes alert Skin: COMMON NORMALS: no rashes or lesions noted GENERAL SKIN EXAM: no rashes or lesions noted Data 08/20/23 05:22 08/20/23 05:22 Micro: Microbiology 08/15/23 15:50 Blood Culture - Final Blood NO GROWTH AFTER 5 DAYS 08/15/23 15:55 Blood Culture - Final Blood Bacteroi caccae(b fragilis grp 08/15/23 09:05 Blood Culture - Final Blood NO GROWTH AFTER 5 DAYS 08/15/23 09:00 Blood Culture - Final Blood NO GROWTH AFTER 5 DAYS A&P Assessment and plan (1) Appendicitis: (2) Septic shock: (3) No pertinent past medical history: (4) Acute gangrenous appendicitis with perforation and peritonitis: (5) Gram-negative bacteremia: (6) Intra-abdominal abscess: Plan Acute gangrenous and perforated appendicitis Reviewed vitals, CBC, CMP, magnesium, procalcitonin, CRP. Underwent IR guided drainage of suspected abscess with drainage of 20-30 cc of purulent fluid. Culture requested. Reviewed surgery note. Continue antibiotic coverage. Order added/catheter. Still requiring IV Dilaudid for pain control. Discussed with case management and nursing. ? Status post laparoscopic appendectomy ? GAMAL drain in place, ? Was on pressors in the emergency room received IV antibiotics, received IV fluids, resolved -1 blood culture, positive for gram negative rods, gram negative bactremia -repeat ct scan abdomen/pelvis shows - CT/CT abdomen pelvis w con* [id number] IMPRESSION: 1. There are 2 loculated pockets of peritonitis in the cul-de-sac and in the right lower quadrant in the resection bed of the appendix. Postsurgical drain is passing anteriorly and inferiorly to these pockets. There is expected trace amount of free intraperitoneal fluid and air expected on day 3 after surgery. 2. There is fluid retention with new soft tissue edema, new small bilateral pleural effusions. There are passive dependent atelectatic changes in the lung bases. ? Continue Dilaudid for pain control -Antibiotic coverage expanded to meropenem -follow blood cultures, 1 blood culture positive for gram-negative rods, -Working on transfer to tertiary level center for IR guided drainage of fluid pockets versus drainage here possibly tomorrow Septated cystic lesion right adnexa for which follow-up ultrasound is recommended ? Has a family history of ovarian cancer ? CA125, elevated, will need to follow-up with Conference Planning Manager as outpatient -follow-up with gynecology as outpatient Urine shows trichomonas species, on meropenem Attestations 2 Medical Necessity Statement*: Continue admission for assessment of management of complicated appendicitis with abscess, requiring IR drainage, continue IV antibiotic. and High MDM includes amount and/or complexity of data reviewed/ordered [ previous or external records, resulted lab(s)/test(s), ordered lab(s)/test(s) and other healthcare professional discussion] and described risk of complication, morbidity or mortality of management as documented Diagnoses Appendicitis K37 Septic shock A41.9; R65.21 No pertinent past medical history Z78.9 Acute gangrenous appendicitis with perforation and peritonitis K35.32 Gram-negative bacteremia R78.81 Intra-abdominal abscess K65.1
[2023-08-20] MEDS: magnesium hydroxide 30 mL UDC PO (21:17)
[2023-08-21] VITALS (9 sets, daily range): BP systolic 108–129; BP diastolic 63–79; PULSE 65–78; RESP 16–18; TEMP 36.9–37.7; O2SAT 94–98
[2023-08-21] MEDS: meropenem 1,000 MG in sodium chloride 0.9% (plus) 50 ML 100 MG IV ×3 (00:10→17:32)
[2023-08-21] MEDS: HYDROcodone-acetaminophen 5-325 mg Tablet 1 TAB PO ×4 (03:08→20:00)
[2023-08-21 05:53] LABS: Basophils % 0.2 %; Eosinophils # 0.2 10^3/uL (0.0-0.8); Hematocrit 22.1 % (36-47); Lymphocytes % 17.6 %; Mean Corpuscular Hemoglobin 22.3 pg (27-33); Mean Corpuscular Volume 67.6 fl (85-98); Mean Platelet Volume 10.2 fL (7.4-10.4); Monocytes % 8.4 %; Neutrophils # 8.19 10^3/uL (1.8-7.7); Neutrophils % 70.9 %; Nucleated Red Blood Cells % 0.2 %; Platelet Count 461 10^3/cmm (157-399); Red Blood Count 3.27 10^6/uL (3.85-5.65); Red Cell Distribution Width 15.1 % (12.1-15.1); White Blood Count 11.54 10^3/uL (3.29-11.43)
--- NOTE | 2023-08-21 05:59 | PC.NURSE ---
Catheter flushed with 8ml normal saline per physician orders.
[2023-08-21 06:16] LABS: Lactate (Lactic Acid level) 0.7 mmol/L (0.5-2.2); Magnesium 2.2 mg/dL (1.7-2.3); Phosphorus 3.4 mg/dL (2.5-4.5)
[2023-08-21 06:20] LABS: Alanine Aminotransferase 22 U/L (0-33); Albumin Level 2.8 g/dL (3.5-5.2); Alkaline Phosphatase 256 U/L (35-105); Anion Gap 14.6 (5-19); Aspartate Amino Transferase 35 U/L (0-32); Blood Urea Nitrogen 7 mg/dL (6-20); Calcium 8.2 mg/dL (8.5-10.5); Carbon Dioxide 28 mmol/L (22-29); Chloride 103 mmol/L (98-107); Creatinine Clr Calc Pharmacy 164.2141; Glomerular Filtration Rate 133.4 mL/min (90-130); Glucose 109 mg/dL (65-115); Osmolality Calculated 293 mOsm/kg (285-295); Potassium 3.6 mmol/L (3.5-5.1); Sodium 142 mmol/L (136-145); Total Bilirubin 0.3 mg/dL (0.15-1.2); Total Protein 5.8 g/dL (6.6-8.7)
[2023-08-21 06:24] LABS: Procalcitonin 1.06 ng/mL (0-0.5)
[2023-08-21 07:03] LABS: Slide Review Slide Review Perform
[2023-08-21] MEDS: heparin 5,000 unit/mL INJ 1 mL 5000 UNIT SUBCUT ×2 (07:47→14:42)
[2023-08-21] MEDS: pantoprazole DR 40 mg Tablet PO (08:45)
[2023-08-21] MEDS: docusate sodium 100 mg Capsule PO ×2 (08:45→17:32)
[2023-08-21] MEDS: HYDROmorphone 1 mg/mL INJ 1 mL IVP ×2 (10:44→15:07)
--- NOTE | 2023-08-21 14:35 | P.PN_ITS ---
Subjective 2 Subjective: She reports that her pain has improved Vitals/I&O/Wt Last Vital Signs Temp 98.4 F 08/22/23 11:25 Pulse 70 08/22/23 11:25 Resp 16 08/22/23 14:09 BP 119/75 08/22/23 11:25 Pulse Ox 95 08/22/23 11:25 O2 Del Method Room Air 08/22/23 11:25 O2 Flow Rate 2 08/18/23 04:00 08/21/23 08/22/23 08/22/23 22:59 06:59 14:59 Intake Total 410 / 940 250 / 1190 290 / 290 Output Total 200 / 200 Balance 410 / 940 250 / 1190 90 / 90 Weight last 48 hrs Weight 160 lb 6.4 oz Weight 161 lb 6.4 oz Physical Exam 2 Narrative: General: No acute distress, awake alert and oriented x 3 Abdomen: Soft, mildly distended, appropriately tender Ortiz drain-serous IR drain-purulent Data 08/22/23 05:17 08/22/23 05:17 Micro: Microbiology 08/20/23 14:25 Gram Stain - Final Abdomen Abscess Culture - Final Escherichia coli A&P Assessment and plan (1) Acute gangrenous appendicitis with perforation and peritonitis: (2) Intra-abdominal abscess: (3) Septic shock: Resolved (4) Gram-negative bacteremia: (5) Acute anemia: Plan Postoperative day #6 status post laparoscopic appendectomy for acute gangrenous appendicitis with perforation and peritonitis who presented in septic shock with bacteremia Meropenem Regular diet Flush drain twice a day with 8 cc of normal saline Milk of [facility] nightly Hospitalist following. Thank you for the recommendations Attestations 2 Medical Necessity Statement*: Continue admission for assessment of management of complicated/perforated appendicitis, intra-abdominal abscess. Coding Level of Care Code Acute Code for [facility] Diagnoses Acute gangrenous appendicitis with perforation and peritonitis K35.32 Intra-abdominal abscess K65.1 Septic shock A41.9; R65.21 Gram-negative bacteremia R78.81 Acute anemia D64.9
--- NOTE | 2023-08-21 15:32 | P.PN_ITS ---
Subjective 2 Subjective: Abdomen is little bit sore but better than yesterday. Vitals/I&O/Wt Last Vital Signs Temp 98.5 F 08/21/23 12:00 Pulse 78 08/21/23 12:00 Resp 17 08/21/23 15:07 BP 118/63 08/21/23 12:00 Pulse Ox 96 08/21/23 12:00 O2 Del Method Room Air 08/20/23 16:15 O2 Flow Rate 2 08/18/23 04:00 08/21/23 08/21/23 08/21/23 06:59 14:59 22:59 Intake Total 50 / 460 530 / 530 Output Total 80 / 80 Balance -30 / 380 530 / 530 Weight last 48 hrs Weight 73.21 kg Weight 71.305 kg Physical Exam 2 Narrative: Sitting up in bed. Const: COMMON NORMALS: patient oriented x3 and alert GENERAL APPEARANCE: c ooperative ORIENTATION/CONSCIOUSNESS: Yes awake HENMT: COMMON NORMALS: oropharynx normal Neck/C-Spine: COMMON NORMALS: no JVD Resp: COMMON NORMALS: normal respiratory effort and clear to auscultation bilaterally AUSCULTATION: clear to auscultation bilaterally Cardio: COMMON NORMALS: no JVD, regular rhythm, S1 normal heart sound present, S2 normal heart sound present and No murmurs present (Cardio) RHYTHM: regular rhythm HEART SOUNDS: S1 normal heart sound present and S2 normal heart sound present GI: COMMON NORMALS: Soft to palpation PALPATION: Yes Soft to palpation O THER: Pigtail drain with first drainage in the bag. GAMAL drain without drainage. Extremity: COMMON NORMALS: no joint enlargement and no pedal edema Neuro: COMMON NORMALS: patient oriented x3 and moves all extremities S ENSORIUM/ORIENTATION: Yes alert Skin: COMMON NORMALS: no rashes or lesions noted GENERAL SKIN EXAM: no rashes or lesions noted Data 08/21/23 05:06 08/21/23 05:06 Micro: Microbiology 08/20/23 14:25 Gram Stain - Final Abdomen Abscess Culture - Preliminary Gram Negative Rods 08/15/23 15:50 Blood Culture - Final Blood NO GROWTH AFTER 5 DAYS 08/15/23 15:55 Blood Culture - Final Blood Bacteroi caccae(b fragilis grp A&P Assessment and plan (1) Appendicitis: (2) Septic shock: (3) No pertinent past medical history: (4) Acute gangrenous appendicitis with perforation and peritonitis: (5) Gram-negative bacteremia: (6) Intra-abdominal abscess: Plan Acute gangrenous and perforated appendicitis. Reviewed vitals, CBC, CMP, magnesium, procalcitonin, intake and output. Pigtail drain has produced about 80 mL. Discussed with radiologist. So far seems no additional output from GAMAL drain. Subjectively she is doing better. Afebrile. Mild leukocytosis 11.5. Reviewed fluid culture, noted rare gram-negative rods, moderate WBC. No culture results. Reviewed surgery note. Discussed with case packer and sealer. Still requiring IV Dilaudid for pain control. Hydrocodone as needed for moderate pain. Wean as tolerating. ? Status post laparoscopic appendectomy ? GAMAL drain in place, ? Was on pressors in the emergency room received IV antibiotics, received IV fluids, resolved -1 blood culture, positive for gram negative rods, gram negative bactremia -repeat ct scan abdomen/pelvis shows - CT/CT abdomen pelvis w con* [id number] IMPRESSION: 1. There are 2 loculated pockets of peritonitis in the cul-de-sac and in the right lower quadrant in the resection bed of the appendix. Postsurgical drain is passing anteriorly and inferiorly to these pockets. There is expected trace amount of free intraperitoneal fluid and air expected on day 3 after surgery. 2. There is fluid retention with new soft tissue edema, new small bilateral pleural effusions. There are passive dependent atelectatic changes in the lung bases. ? Continue Dilaudid for pain control -Antibiotic coverage expanded to meropenem -follow blood cultures, 1 blood culture positive for gram-negative rods, -Working on transfer to tertiary level center for IR guided drainage of fluid pockets versus drainage here possibly tomorrow Septated cystic lesion right adnexa for which follow-up ultrasound is recommended ? Has a family history of ovarian cancer ? CA125, elevated, will need to follow-up with Industrial Tech Instructor as outpatient -follow-up with gynecology as outpatient Urine shows trichomonas species, on meropenem Attestations 2 Medical Necessity Statement*: Continue admission for assessment of management of complicated/perforated appendicitis, intra-abdominal abscess. and High MDM includes amount and/or complexity of data reviewed/ordered [ previous or external records, resulted lab(s)/test(s), ordered lab(s)/test(s) and other healthcare professional discussion] and described risk of complication, morbidity or mortality of management as documented Diagnoses Appendicitis K37 Septic shock A41.9; R65.21 No pertinent past medical history Z78.9 Acute gangrenous appendicitis with perforation and peritonitis K35.32 Gram-negative bacteremia R78.81 Intra-abdominal abscess K65.1
--- NOTE | 2023-08-21 18:34 | PC.NURSE ---
pt removed tele because it was too heavy while she walked laps in the [place], then refused to put it back on
[2023-08-21] MEDS: magnesium hydroxide 30 mL UDC PO (20:00)
[2023-08-22] VITALS (8 sets, daily range): BP systolic 102–130; BP diastolic 64–79; PULSE 70–82; RESP 16–19; TEMP 36.9–37.4; O2SAT 92–96
[2023-08-22] MEDS: HYDROcodone-acetaminophen 5-325 mg Tablet 1 TAB PO ×3 (00:35→09:47)
[2023-08-22] MEDS: meropenem 1,000 MG in sodium chloride 0.9% (plus) 50 ML 100 MG IV ×3 (00:35→17:58)
[2023-08-22 05:53] LABS: Basophils # 0.1 10^3/uL (0.0-0.1); Basophils % 0.3 %; Eosinophils # 0.2 10^3/uL (0.0-0.8); Hematocrit 23.3 % (36-47); Lymphocytes % 11.2 %; Mean Corpuscular HGB Conc 32.2 g/dL (30-55); Mean Corpuscular Hemoglobin 22.3 pg (27-33); Mean Corpuscular Volume 69.1 fl (85-98); Monocytes # 1.2 10^3/uL (0.2-0.9); Neutrophils # 13.75 10^3/uL (1.8-7.7); Neutrophils % 79.3 %; Nucleated Red Blood Cells % 0 %; Platelet Count 513 10^3/cmm (157-399); Red Blood Count 3.37 10^6/uL (3.85-5.65); Red Cell Distribution Width 15.5 % (12.1-15.1); White Blood Count 17.34 10^3/uL (3.29-11.43)
[2023-08-22 06:15] LABS: Alanine Aminotransferase 26 U/L (0-33); Albumin Level 2.8 g/dL (3.5-5.2); Alkaline Phosphatase 244 U/L (35-105); Anion Gap 14.6 (5-19); Aspartate Amino Transferase 40 U/L (0-32); Blood Urea Nitrogen 6 mg/dL (6-20); Calcium 7.9 mg/dL (8.5-10.5); Carbon Dioxide 25 mmol/L (22-29); Chloride 103 mmol/L (98-107); Creatinine Clr Calc Pharmacy 163.1958; Glomerular Filtration Rate 133.4 mL/min (90-130); Glucose 105 mg/dL (65-115); Osmolality Calculated 286 mOsm/kg (285-295); Potassium 3.6 mmol/L (3.5-5.1); Sodium 139 mmol/L (136-145); Total Bilirubin 0.3 mg/dL (0.15-1.2); Total Protein 5.8 g/dL (6.6-8.7)
[2023-08-22] MEDS: docusate sodium 100 mg Capsule PO ×2 (09:17→17:59)
[2023-08-22] MEDS: pantoprazole DR 40 mg Tablet PO (09:17)
--- NOTE | 2023-08-22 09:23 | CT_ITS ---
WS: [id number] CT ABDOMEN PELVIS TECHNIQUE: Contrast-enhanced CT of the abdomen and pelvis with coronal and sagittal reformatted image s. CLINICAL INFORMATION: s/p appendectomy COMPARISON: Recent CT 622 [id number] DLP: 880.[address] scans at [facility] use at least one of these dose optimization techniques: automated e xposure control; mA and/or kV adjustment per patient size (includes targeted exams where dose is matc hed to clinical indication); or iterative reconstruction. FINDINGS: Recent postoperative changes appendectomy. Pigtail catheter in the pelvic fluid collection with signi ficant decrease in size. Small amount of residual peripheral enhancing fluid/abscess. Small bilateral pleural effusions with bibasilar compressive atelectasis. Recommend correlation for developing pneum onia. Diffuse body wall anasarca. Peripherally enhancing fluid collection in the appendectomy bed slightly increased in size compared t o previous study measuring approximately 3.1 x 2.5 cm. This is encased by small bowel and would be di fficult to access percutaneously. Small amount peripheral enhancing fluid in the RIGHT paracolic gutt er and along the RIGHT inferior hepatic lobe along the recently removed surgical drain tract. Hepatomegaly. Normal spleen. No hydronephrosis. Normal caliber abdominal aorta. Sigmoid diverticulosi s. Small bowel ileus likely postoperative adynamic ileus. CT/CT abdomen pelvis w con* [id number] IMPRESSION: 1. Dilated loops of small bowel with air-fluid levels likely postoperative misa namic ileus. 2. Recent postoperative changes appendectomy with peripheral enhancing fluid c ollection/abscess in the appendectomy bed measuring 3.1 x 2.5 cm. This is encas ed by small bowel anteriorly and would be difficult to access percutaneously. 3. Small bilateral pleural effusions with compressive atelectasis. Recommend c orrelation for developing pneumonia. 4. Improved pelvic fluid collection with a small amount of residual peripheral enhancing fluid. Pigtail catheter in place. 5. Interval removal of the surgical drain with a small amount of enhancing flu id along the surgical drain tract.
[2023-08-22] MEDS: iohexol 350 mg/mL 500 mL Btl (per mL) IV (11:03)
--- NOTE | 2023-08-22 11:31 | P.PN_ITS ---
Subjective 2 Subjective: She states that subjectively she is doing better today. Without abdominal pain. She has been ambulating, has had a bowel movement. Vitals/I&O/Wt Last Vital Signs Temp 98.4 F 08/22/23 11:25 Pulse 70 08/22/23 11:25 Resp 18 08/22/23 11:25 BP 119/75 08/22/23 11:25 Pulse Ox 95 08/22/23 11:25 O2 Del Method Room Air 08/22/23 11:25 O2 Flow Rate 2 08/18/23 04:00 08/21/23 08/22/23 08/22/23 22:59 06:59 14:59 Intake Total 410 / 940 250 / 1190 290 / 290 Output Total 200 / 200 Balance 410 / 940 250 / 1190 90 / 90 Weight last 48 hrs Weight 72.756 kg Weight 73.21 kg Physical Exam 2 Narrative: Sitting up in bed. Const: COMMON NORMALS: patient oriented x3 and alert GENERAL APPEARANCE: c ooperative ORIENTATION/CONSCIOUSNESS: Yes awake HENMT: COMMON NORMALS: oropharynx normal Neck/C-Spine: COMMON NORMALS: no JVD Resp: COMMON NORMALS: normal respiratory effort and clear to auscultation bilaterally AUSCULTATION: clear to auscultation bilaterally Cardio: COMMON NORMALS: no JVD, regular rhythm, S1 normal heart sound present, S2 normal heart sound present and No murmurs present (Cardio) RHYTHM: regular rhythm HEART SOUNDS: S1 normal heart sound present and S2 normal heart sound present GI: COMMON NORMALS: Soft to palpation PALPATION: Yes Soft to palpation O THER: Pigtail drain with further drainage in the bag. GAMAL drain without drainage. Extremity: COMMON NORMALS: no joint enlargement and no pedal edema Neuro: COMMON NORMALS: patient oriented x3 and moves all extremities S ENSORIUM/ORIENTATION: Yes alert Skin: COMMON NORMALS: no rashes or lesions noted GENERAL SKIN EXAM: no rashes or lesions noted Data 08/22/23 05:17 08/22/23 05:17 Micro: Microbiology 08/20/23 14:25 Gram Stain - Final Abdomen Abscess Culture - Final Escherichia coli A&P Assessment and plan (1) Appendicitis: (2) Septic shock: (3) No pertinent past medical history: (4) Acute gangrenous appendicitis with perforation and peritonitis: (5) Gram-negative bacteremia: (6) Intra-abdominal abscess: Plan Acute gangrenous and perforated appendicitis. Subjectively she is feeling better, no further output from the drains, however, worsening leukocytosis today up to 17.3. Concern for additional pocket of abscess. Reviewed vitals, CBC, CMP. Agree with surgery with obtaining additional assessment with CT abdomen pelvis discussed with the surgeon. Discussed with case operator. Monitor for risk of nephropathy with contrast- enhanced study. Abscess fluid culture reviewed, growing pansensitive E. coli. Hydrocodone as needed for moderate pain. Wean as tolerating. So far wean down on IV Dilaudid. ? Status post laparoscopic appendectomy ? GAMAL drain in place, ? Was on pressors in the emergency room received IV antibiotics, received IV fluids, resolved -1 blood culture, positive for gram negative rods, gram negative bactremia -repeat ct scan abdomen/pelvis shows - CT/CT abdomen pelvis w con* [id number] IMPRESSION: 1. There are 2 loculated pockets of peritonitis in the cul-de-sac and in the right lower quadrant in the resection bed of the appendix. Postsurgical drain is passing anteriorly and inferiorly to these pockets. There is expected trace amount of free intraperitoneal fluid and air expected on day 3 after surgery. 2. There is fluid retention with new soft tissue edema, new small bilateral pleural effusions. There are passive dependent atelectatic changes in the lung bases. ? Continue Dilaudid for pain control -Antibiotic coverage expanded to meropenem -follow blood cultures, 1 blood culture positive for gram-negative rods, -Working on transfer to tertiary level center for IR guided drainage of fluid pockets versus drainage here possibly tomorrow Septated cystic lesion right adnexa for which follow-up ultrasound is recommended ? Has a family history of ovarian cancer ? CA125, elevated, will need to follow-up with Taproom Attendant as outpatient -follow-up with gynecology as outpatient Urine shows trichomonas species, on meropenem Attestations 2 Medical Necessity Statement*: Continue admission for assessment of management of complicated/perforated appendicitis, intra-abdominal abscess. and High MDM includes amount and/or complexity of data reviewed/ordered [ resulted lab(s)/test(s), ordered lab(s)/test(s) and other healthcare professional discussion] and described risk of complication, morbidity or mortality of management as documented Diagnoses Appendicitis K37 Septic shock A41.9; R65.21 No pertinent past medical history Z78.9 Acute gangrenous appendicitis with perforation and peritonitis K35.32 Gram-negative bacteremia R78.81 Intra-abdominal abscess K65.1
[2023-08-22] MEDS: HYDROmorphone 1 mg/mL INJ 1 mL IVP ×2 (14:09→21:02)
--- NOTE | 2023-08-22 14:30 | PC.NURSE ---
drained flushed with 8ml and drained 32ml out
--- NOTE | 2023-08-22 14:38 | P.PN_ITS ---
Subjective 2 Subjective: Patient seen and examined. She reports that her pain is improving. Surgically placed drain was removed yesterday because it had only serous output and stripping it caused her significant pain Vitals/I&O/Wt Last Vital Signs Temp 98.4 F 08/22/23 11:25 Pulse 70 08/22/23 11:25 Resp 16 08/22/23 14:09 BP 119/75 08/22/23 11:25 Pulse Ox 95 08/22/23 11:25 O2 Del Method Room Air 08/22/23 11:25 O2 Flow Rate 2 08/18/23 04:00 08/21/23 08/22/23 08/22/23 22:59 06:59 14:59 Intake Total 410 / 940 250 / 1190 290 / 290 Output Total 200 / 200 Balance 410 / 940 250 / 1190 90 / 90 Weight last 48 hrs Weight 160 lb 6.4 oz Weight 161 lb 6.4 oz Physical Exam 2 Narrative: General: No acute distress, awake alert and oriented x 3 Abdomen: Soft, mildly distended, appropriately tender IR drain-purulent Data 08/22/23 05:17 08/22/23 05:17 Micro: Microbiology 08/20/23 14:25 Gram Stain - Final Abdomen Abscess Culture - Final Escherichia coli A&P Assessment and plan (1) Acute gangrenous appendicitis with perforation and peritonitis: (2) Intra-abdominal abscess: (3) Septic shock: Resolved (4) Gram-negative bacteremia: (5) Acute anemia: Plan Postoperative day #7 status post laparoscopic appendectomy for acute gangrenous appendicitis with perforation and peritonitis who presented in septic shock with bacteremia Meropenem Leukocytosis is worsening and she has persistent abscesses. I will consult infectious disease tonight Regular diet Flush drain twice a day with 8 cc of normal saline Milk of [facility] nightly Hospitalist following. Thank you for the recommendations Attestations 2 Medical Necessity Statement*: Continue admission for assessment of management of complicated/perforated appendicitis, intra-abdominal abscess. Coding Level of Care Code Acute Code for [facility] Diagnoses Acute gangrenous appendicitis with perforation and peritonitis K35.32 Intra-abdominal abscess K65.1 Septic shock A41.9; R65.21 Gram-negative bacteremia R78.81 Acute anemia D64.9
[2023-08-22] MEDS: HYDROcodone-acetaminophen 7.5-325 mg Tablet 1 TAB PO ×2 (17:58→23:22)
[2023-08-22] MEDS: magnesium hydroxide 30 mL UDC PO (21:02)
[2023-08-23] VITALS (8 sets, daily range): BP systolic 103–122; BP diastolic 70–77; PULSE 65–92; RESP 16–19; TEMP 36.7–37.4; O2SAT 93–97
[2023-08-23] MEDS: meropenem 1,000 MG in sodium chloride 0.9% (plus) 50 ML 100 MG IV ×2 (00:40→08:06)
[2023-08-23] MEDS: HYDROmorphone 1 mg/mL INJ 1 mL IVP ×2 (05:00→15:19)
[2023-08-23 05:23] LABS: Basophils # 0.1 10^3/uL (0.0-0.1); Basophils % 0.5 %; Eosinophils # 0.3 10^3/uL (0.0-0.8); Eosinophils % 1.6 %; Hematocrit 25.1 % (36-47); Lymphocytes # 2.6 10^3/uL (0.8-4.8); Lymphocytes % 16.8 %; Mean Corpuscular HGB Conc 31.9 g/dL (30-55); Mean Corpuscular Hemoglobin 22.2 pg (27-33); Mean Corpuscular Volume 69.7 fl (85-98); Mean Platelet Volume 9.8 fL (7.4-10.4); Monocytes # 1.1 10^3/uL (0.2-0.9); Monocytes % 7.2 %; Neutrophils # 11.28 10^3/uL (1.8-7.7); Neutrophils % 72.7 %; Nucleated Red Blood Cells % 0.1 %; Platelet Count 654 10^3/cmm (157-399); Red Cell Distribution Width 15.8 % (12.1-15.1); White Blood Count 15.52 10^3/uL (3.29-11.43)
--- NOTE | 2023-08-23 06:08 | PM.CONSULT ---
Providers/Reason For Consult Consulting Physician/Specialty*: Vianca Francis MD / infectious disease Reason for Consult*: intraabdominal abscess Requesting Physician: Jd Isidro DO Attending Physician: Jd Isidro DO History of Present Illness History of Present Illness Lima Castellano is a 43 year old female with a remote history of IV drug use who was admitted to the hospital on August 15, 2023 with 1 day of lower abdominal pain nausea and vomiting. She was found to have acute appendicitis. She was taken to the OR on August 15, 2023 where intraoperatively she was found to have acute gangrenous perforated appendicitis. Purulence was encountered throughout the abdomen with matting of the small bowel and purulence in the right lower quadrant. Abdomen was suctioned. There was significant purulence around the liver. Drains were placed in the left lower quadrant along the liver and right paracolic gutter into the pelvis. Patient was in septic shock initially and required ICU admission and briefly needed pressors. She was continued on IV Zosyn postprocedure with plan to complete for 5 days and recheck a CT of the abdomen. She continued to have intermittent abdominal discomfort along with intermittent fever. Blood culture showed Bacteroides fragilis. Abdominal pain worsened on August 18, 2023 and she underwent repeat CT of the abdomen which now showed loculated pockets of peritonitis in the cul-de-sac and right lower quadrant. Surgical drain was noted inferiorly to these pockets. Antibiotics were broadened to meropenem. She underwent IR drainage of the pelvic abscess on August 20, 2023. Reviewing IR note, 20 to 30 cc of purulent fluid was aspirated from one of the abscesses was improved. CT abdomen was again repeated on August 22, 2023 which showed peripheral enhancing fluid in the appendectomy bed measuring 3.1 x 2.5 cm. This was not able to be accessed percutaneously. The second abscess which was accessible by percutaneous drainage on August 19 looked much improved. Culture from IR drainage on August 19 showed muse susceptible E. coli. Overall patient's abdominal pain is improving.. She was last febrile to temperature of 100.3 Fahrenheit on August 17, 2023. Since then she has had Tmax ranging between 99-99.8 Fahrenheit. WBC count has improved from 20,000 on August 15 to 15,000 currently. She is currently tolerating a regular diet. Review of Systems General: Reports: 10 or more systems reviewed and unremarkable except in HPI and below Const: Denies: fever(s), chills or body aches Eyes: Denies: change in vision, blurry vision or photophobia ENMT: Reports: hoarseness; Denies: throat pain, enlarged tonsils, odynophagia or nasal congestion Card: Denies: chest pain, palpitations, irregular heart rhythm, edema, swelling of feet/ankles, lightheadedness, pre-syncope, dyspnea on exertion or orthopnea Resp: Denies: dyspnea, productive cough, non-productive cough, wheezing, stridor, pain on inspiration, change in phlegm color, hemoptysis or chest congestion GI: Denies: abdominal pain, nausea, vomiting, hematemesis, coffee ground emesis, dysphagia, heartburn, diarrhea, constipation, GI cramping, change in stool character, hematochezia or melena : Denies: flank pain, difficulty voiding, dysuria, urinary frequency, urinary urgency, urinary hesitancy or hematuria Musc: Denies: neck pain, back pain, extremity pain, joint swelling, joint warmth or deformity Neuro: Denies: headache(s), numbness in extremities, weakness in extremities, sensory changes, difficulty walking, frequent falls, dizziness, vertigo, behavioral changes, Slurred speech present or seizure-like activity Psych: Denies: anxiety, depression, suicidal ideation or homicidal ideation Endo: Denies: polyuria, polydipsia, tired all the time, cold intolerance or hot flashes Dean/Lymph: Denies: easy bruising or easy bleeding Medications/Allergies Home Medications Medication Instructions Recorded Confirmed Last Taken Type No Known Home Medications 08/15/23 08/15/23 Unknown History Allergies Allergy/AdvReac Type Severity Reaction Status Date / Time No Known Allergies Allergy Verified 04/20/23 13:27 Current Medications Generic Name Dose Route Start Last Admin Trade Name Freq PRN Reason Stop Dose Admin Hydrocodone Bitart/Acetaminophen 1 tab 08/22/23 17:22 08/22/23 23:22 Hydrocodone-Acetaminophen 7.5-325 Mg Tablet PO 1 tab Q4H PRN Administration MODERATE PAIN Docusate Sodium 100 mg 08/15/23 18:00 08/22/23 17:59 Docusate Sodium 100 Mg Capsule PO 100 mg BID HIRAM Administration Hydromorphone HCl 1 mg 08/22/23 19:32 08/23/23 05:00 Hydromorphone 1 Mg/Ml Inj 1 Ml IVP 1 mg Q4H PRN Administration severe pain Meropenem 1,000 mg/ Sodium 50 mls @ 100 mls/hr 08/18/23 19:00 08/23/23 01:19 Chloride IV Infused Q8H HIRAM Infusion Protocol Magnesium Hydroxide 30 ml 08/18/23 21:00 08/22/23 21:02 Magnesium Hydroxide 30 Ml Udc PO 30 ml BEDTIME HIRAM Administration Pantoprazole Sodium 40 mg 08/16/23 09:00 08/22/23 09:[address] 40 Mg Tablet PO 40 mg DAILY HIRAM Administration PFSH Acute PFSH: Medical History No pertinent past medical history Surgical History History of dilation and curettage Family History Other CAD (coronary artery disease) Diabetes Ovarian cancer Social History Smoking and tobacco/nicotine status: current every day tobacco/nicotine user Alcohol intake: never Substance/Drug Use: former Female Reproductive History: Date of last menstrual period: 08/12/23 Vitals/I&O/Wt Last Vital Signs Temp 99.0 F 08/23/23 03:59 Pulse 92 08/23/23 03:59 Resp 16 08/23/23 05:00 BP 122/75 08/23/23 03:59 Pulse Ox 93 08/23/23 03:59 O2 Del Method Room Air 08/23/23 03:59 O2 Flow Rate 2 08/18/23 04:00 08/22/23 08/22/23 08/23/23 14:59 22:59 06:59 Intake Total 290 / 290 490 / 780 170 / 950 Output Total 200 / 200 10 / 210 Balance 90 / 90 490 / 580 160 / 740 Weight last 48 hrs Weight 72.756 kg Physical Exam Narrative: General: No acute distress, AO x3 HEENT: PERRLA, pupils bilaterally equal and reactive, pallors not present Chest: Normal vesicular breath sounds, no added sounds, equal good air entry bilaterally CVS: S1-S2 regular, no murmurs, no tachycardia, no gallops, no rubs Abdomen: Soft, nontender, no organomegaly, bowel sounds present Neuro: No focal deficits, no facial deformity, AO x3, power 5/5 in all limbs Data 08/23/23 05:05 08/23/23 06:21 Micro: Microbiology 08/20/23 14:25 Gram Stain - Final Abdomen Abscess Culture - Final Escherichia coli NAME: Lima Castellano Adrien LOC: [facility] #: [id number] AGE/SX: 43/F ROOM: [facility] RE08/15/[address]: Jd Isidro DO : 1980 BED: 1 DIS: FAX #: STATUS: ADM IN TLOC: Spec #: [id number] Amita: 08/20/23-1425 Status: COMP Req #: [id number] Recd: 08/20/23-[address]: Rodrigo Christian MD Src: Abdomen SpDesc: Ordered: Absces Cult&GS Procedure Result Verified Site Gram Stain Final 08/21/23-1221 Result MODERATE WHITE BLOOD CELLS RARE GRAM NEGATIVE RODS Abscess Culture Final 08/22/23-09 Organism 1 Escherichia coli Growth FEW DAY 2 E coli M.I.C. RX --------- ------ * Amikacin <=16 S * Amoxicillin/Clavulanate <=8/4 S * Ampicillin <=8 S * Ampicillin/Sulbactam <=8/4 S * Aztreonam <=4 S * Cefepime <=8 S * Ceftriaxone <=1 S * Cefuroxime <=4 S * Ciprofloxacin <=1 S * Gentamicin <=2 S * Imipenem <=1 S * Levofloxacin <=2 S * Tetracycline <=4 S * Trimethoprim/Sulfamethoxazole <=2/38 S * Piperacillin/Tazobactam <=16 S Abscess Culture Preliminary (changed) 08/21/23-1221 Organism 1 Gram Negative Rods Growth FEW NAME: Lima Castellano Adrien LOC: [facility] #: [id number] AGE/SX: 43/F ROOM: [facility] RE08/15/[address]: Jd Isidro DO : 1980 BED: 1 DIS: FAX #: STATUS: ADM IN TLOC: Spec #: [id number] Amita: 08/18/23-1414 Status: RES Req #: [id number] Recd: 08/18/23-[address]: Rishabh Cohen MD Src: Blood SpDesc: Ordered: Bcult Procedure Result Verified Site Blood Culture Preliminary 08/19/23-1442 NEGATIVE TO DATE Blood Culture Preliminary (changed) 08/18/23-1448 SPECIMEN COLLECTED NAME: Lima Castellano LOC: [facility] U #: [id number] AGE/SX: 43/F ROOM: [facility] RE08/15/[address]: Jd Isidro DO : 1980 BED: 1 DIS: FAX #: STATUS: ADM IN TLOC: Spec #: [id number] Amita: 08/18/23-141 Status: RES Req #: [id number] Recd: 08/18/23-[address]: Rishabh Cohen MD Src: Blood SpDesc: Ordered: Bcult Procedure Result Verified Site Blood Culture Preliminary 08/19/23 NEGATIVE TO DATE Blood Culture Preliminary (changed) 08/18/23-1448 SPECIMEN COLLECTED NAME: Lima Castellano LOC: [facility] U #: [id number] AGE/SX: 43/F ROOM: [facility] RE08/15/[address]: Jd Isidro DO : 1980 BED: 1 DIS: FAX #: STATUS: ADM IN TLOC: Spec #: [id number] Amita: 08/15/23-1555 Status: COMP Req #: [id number] Recd: 08/15/23-[address]: Jd Isidro DO Src: Blood SpDesc: Ordered: Bcult Procedure Result Verified Site Blood Culture Final 08/20/23-1448 2 OF 7 BOTTLES POSITIVE, BOTH ANAEROBIC BOTTLES POSITIVE DIRECT GRAM STAIN: GRAM NEGATIVE RODS Organism 1 Bacteroi caccae(b fragilis grp Growth 2 BOTTLES Gram Stain Charge Charge for Gram Stain CRITICAL RESULT YES/NO: YES CRITICAL CALLED BY: BEVERLY TO AND READ BACK BY: MAXIMOENCINITAS DATE: 08/17/23 TIME: 0323 Blood Culture Preliminary (changed) 08/20/23-1447 2 OF 7 BOTTLES POSITIVE, BOTH ANAEROBIC BOTTLES POSITIVE DIRECT GRAM STAIN: GRAM NEGATIVE RODS Organism 1 Bacteroi caccae(b fragilis grp Growth 2 BOTTLES Gram Stain Charge Charge for Gram Stain CRITICAL RESULT YES/NO: YES CRITICAL CALLED BY: LM TO AND READ BACK BY: NEENCINITAS DATE: 08/17/23 TIME: 0323 Blood Culture Preliminary (changed) 08/19/23-1700 2 OF 7 BOTTLES POSITIVE, BOTH ANAEROBIC BOTTLES POSITIVE DIRECT GRAM STAIN: GRAM NEGATIVE RODS RESULTS TO FOLLOW Organism 1 Anaerobic gram negative rods Growth 2 BOTTLES Gram Stain Charge Charge for Gram Stain CRITICAL RESULT YES/NO: YES CRITICAL CALLED BY: BEVERLY TO AND READ BACK BY: NEENCINITAS DATE: 08/17/23 TIME: 032 Blood Culture Preliminary (changed) 08/17/23-0323 1 OF 7 BOTTLES POSITIVE DIRECT GRAM STAIN: GRAM NEGATIVE RODS RESULTS TO FOLLOW CRITICAL RESULT YES/NO: YES CRITICAL CALLED BY: BEVERLY TO AND READ BACK BY: NEENCINITAS DATE: 08/17/23 TIME: 032 Blood Culture Preliminary (changed) 08/16/23-161 NEGATIVE TO DATE Blood Culture Preliminary (changed) 08/15/23-161 SPECIMEN COLLECTED Other data: Date of Service: 08/22/23 Procedure(s): CT abdomen pelvis w con* [id number] CT/CT abdomen pelvis w con* [id number] IMPRESSION: 1. Dilated loops of small bowel with air-fluid levels likely postoperative adynamic ileus. 2. Recent postoperative changes appendectomy with peripheral enhancing fluid collection/abscess in the appendectomy bed measuring 3.1 x 2.5 cm. This is encased by small bowel anteriorly and would be difficult to access percutaneously. 3. Small bilateral pleural effusions with compressive atelectasis. Recommend correlation for developing pneumonia. 4. Improved pelvic fluid collection with a small amount of residual peripheral enhancing fluid. Pigtail catheter in place. 5. Interval removal of the surgical drain with a small amount of enhancing fluid along the surgical drain tract. WS: [id number] CT-GUIDED PELVIC DRAIN PLACEMENT INDICATION: Pelvic abscess post appendectomy DLP: 514.35 Addendum Dictated By: Lamberto Tobias MD Addendum Signed By: Lamberto Tobias MD Signed Date/Time: 08/22/231640 Addendum Cosigned By: WS: [email or web address] CT-GUIDED PELVIC DRAIN PLACEMENT INDICATION: Pelvic abscess post appendectomy TECHNIQUE: The procedure, including risks, benefits, and complications were discussed with the patient who agreed to proceed. Using sterile technique, patient was prepped and draped in usual sterile fashion. Timeout was performed. Anesthesia was present for sedation. After 1% lidocaine, using CT guidance, a 17-gauge coaxial biopsy needle was advanced into the pelvic fluid collection. Approximately 20 to 30 cc of purulent fluid was aspirated. An 038 guidewire was advanced through the coaxial needle into the pelvic fluid collection. Subsequently, using Seldinger technique, the coaxial needle was removed and the tract was dilated over the wire. Dilator was removed and an 8 Ecuadorean pigtail drain was inserted over the wire into the fluid collection. After confirmation of drain position, pigtail was locked and secured in place. Three-way stopcock was attached with accordion drain. CT/CT guided drainage [id number] IMPRESSION: 1. Uncomplicated CT-guided 8 Ecuadorean pigtail pelvic drain placement 2. Recommend catheter flushing twice a day with 8cc normal saline until removal CT/CT abdomen pelvis w con* [id number] IMPRESSION: 1. There are 2 loculated pockets of peritonitis in the cul-de-sac and in the right lower quadrant in the resection bed of the appendix. Postsurgical drain is passing anteriorly and inferiorly to these pockets. There is expected trace amount of free intraperitoneal fluid and air expected on day 3 after surgery. 2. There is fluid retention with new soft tissue edema, new small bilateral pleural effusions. There are passive dependent atelectatic changes in the lung bases. CT/CT abdomen pelvis w con* [id number] IMPRESSION: 1. Abnormally dilated appendix which contains fluid and appendicoliths in surrounded by fluid consistent with a appendicitis however the entire small and large bowel is abnormal with dilated loops of small bowel and diffuse wall thickening involving the small and large bowel elise. There is fluid adjacent to the appendix but also in the mesentery and in the cul-de-sac. It is likely that the appendicitis has generated such an inflammatory response as to secondarily involve the entire large and small bowel . It is less likely that the appendix is secondarily involved in an inflammatory process involving the entire GI tract. 2. No free air. No abscess 3. Septated cystic lesion right adnexa for which follow-up ultrasound is recommended 4. Umbilical hernia containing only fat. 5. Hepatomegaly 6. Distended gallbladder. No gallstones or gallbladder wall thickening detected. Negative for biliary ductal dilatation 7. Small umbilical hernia containing only fat A&P Assessment and plan (1) Gram-negative bacteremia: (2) Appendicitis: (3) Acute gangrenous appendicitis with perforation and peritonitis: (4) Intra-abdominal abscess: Plan 43-year-old lady currently admitted to the hospital since 04/16/2023 after presenting with acutely perforated gangrenous appendicitis with peritonitis and septic shock. Status post appendectomy on August 15, 2023 Intraoperatively found to have copious amount of pus in the abdomen which has subsequently organized into 2 pelvic abscesses. Blood cultures positive for Bacteroides fragilis as noted above from admission. Subsequently blood cultures have cleared. Status postplacement of IR guided drainage into one of the 2 pelvic abscesses with interval improvement on serial imaging. Cultures from this pelvic abscess have revealed pansensitive E. coli. There remains a 2.1 x 3.5 cm second pelvic abscess which is not amenable to IR drainage. Patient has been on treatment initially with piperacillin/tazobactam and then meropenem both of which would adequately cover for polymicrobial pelvic infection. Blood cultures have shown clearance. Patient is otherwise clinically improving. She is able to pass flatus and stool. She is tolerating a p.o. intake. Plan: Given the extent of her pelvic infection, complicated by development of 2 pelvic abscesses, 1 of which is improved after IR drainage, however a second 2.5 x 3.1 centimeter abscess still remains. Recommend treatment with IV antibiotics over the course of next 3 to 4 weeks until there is noted to be resolution of the pelvic abscesses. Discontinue meropenem Change treatment to ceftriaxone 2 g IV every 24 hours and metronidazole 500 mg p.o. every 8 hours. Plan to discharge with above antibiotics when patient ready from a surgical perspective. Overall treatment course been remain dependent on patient's continued clinical course/improvement, and serial radiological improvement. Will plan to repeat CT of the abdomen and pelvis in 2 weeks to ensure continued clinical improvement. Final course of antibiotics may be adjusted based on serial clinical response. Will follow Consult Attestations Medical Necessity Statement: per admitting attending Diagnoses Gram-negative bacteremia R78.81 Appendicitis K37 Acute gangrenous appendicitis with perforation and peritonitis K35.32 Intra-abdominal abscess K65.1
--- NOTE | 2023-08-23 06:54 | P.PN_ITS ---
Subjective 2 Subjective: This a 43-year-old female who is postoperative day 8 status post laparoscopic appendectomy for perforated acute appendicitis with peritonitis. Patient was noted to have an intra-abdominal abscess, underwent drainage from postoperative day 5, due to uptrending white count she had a repeat CT scan on postoperative day 7 which show evidence of adequate drainage of the pelvic abscess but persistent about mid abdominal abscess that he is incased between bowel loops the abscess measures about 3 cm. In the last 24 hours patient states that she is feeling a little bit better, has remained afebrile, has continued to pass out and had a bowel movement yesterday. Vitals/I&O/Wt Last Vital Signs Temp 99.0 F 08/23/23 03:59 Pulse 92 08/23/23 03:59 Resp 16 08/23/23 05:00 BP 122/75 08/23/23 03:59 Pulse Ox 93 08/23/23 03:59 O2 Del Method Room Air 08/23/23 03:59 O2 Flow Rate 2 08/18/23 04:00 08/22/23 08/22/23 08/23/23 14:59 22:59 06:59 Intake Total 290 / 290 490 / 780 170 / 950 Output Total 200 / 200 10 / 210 Balance 90 / 90 490 / 580 160 / 740 Weight last 48 hrs Weight 157 lb 6.4 oz Weight 160 lb 6.4 oz Physical Exam 2 GI: OTHER: Abdomen is soft, is distended, is tender mostly in the right hemiabdomen. No peritonitis at this time. Drain is in place, output is seropurulent Data 08/23/23 05:05 08/22/23 05:17 Micro: Microbiology 08/20/23 14:25 Gram Stain - Final Abdomen Abscess Culture - Final Escherichia coli A&P Assessment and plan (1) Acute gangrenous appendicitis with perforation and peritonitis: (2) Intra-abdominal abscess: Plan Postoperative day 8 status post laparoscopic appendectomy, postoperative day 3 status post IR drainage of pelvic abscess. I have been asked to oversee the care of this patient after my colleague Dr. Isidro when out of town on vacation. Patient showing slow improvement over the last 24 hours. Her white count trended down from 17-15. She still having bowel function and has been ambulating, abdominal pain is improved from yesterday. Her abdomen is distended but I do not HAVE a baseline as this is the first day I meet the patient. The plan at this point is to continue IV antibiotics, ID has been consulted for antibiotic management, there is a high chance of the patient will require extended antibiotics as outpatient, if this is the case we will order a PICC line for her. I have explained to the patient that in the case of lack of improvement of worsening of her clinical status she might require exploration and washout and possible bowel resection. She shows understanding and has Splane to me that she will like to do anything to avoid having surgery again. We will continue current plan we will monitor labs daily, if things continue to improve plan will be to discharge home over the weekend Attestations 2 Medical Necessity Statement*: Patient will require continued hospital stay for management of intra-abdominal abscess and sepsis. Coding Level of Care Code 78626 Diagnoses Acute gangrenous appendicitis with perforation and peritonitis K35.32 Intra-abdominal abscess K65.1
[2023-08-23 07:45] LABS: Fibrinogen Degradation Product 10 mcg/mL (LESS THAN 5)
[2023-08-23 07:51] LABS: Alanine Aminotransferase 25 U/L (0-33); Albumin Level 2.7 g/dL (3.5-5.2); Alkaline Phosphatase 229 U/L (35-105); Anion Gap 11.8 (5-19); Aspartate Amino Transferase 33 U/L (0-32); Blood Urea Nitrogen 7 mg/dL (6-20); Calcium 7.9 mg/dL (8.5-10.5); Carbon Dioxide 28 mmol/L (22-29); Chloride 104 mmol/L (98-107); Creatinine Clr Calc Pharmacy 133.4525; Glomerular Filtration Rate 108.1 mL/min (90-130); Glucose 91 mg/dL (65-115); Osmolality Calculated 288 mOsm/kg (285-295); Potassium 3.8 mmol/L (3.5-5.1); Sodium 140 mmol/L (136-145); Total Bilirubin 0.3 mg/dL (0.15-1.2); Total Protein 5.7 g/dL (6.6-8.7)
[2023-08-23] MEDS: docusate sodium 100 mg Capsule PO ×2 (08:06→16:40)
[2023-08-23] MEDS: pantoprazole DR 40 mg Tablet PO (08:06)
[2023-08-23] MEDS: HYDROcodone-acetaminophen 7.5-325 mg Tablet 1 TAB PO ×4 (08:06→20:38)
--- NOTE | 2023-08-23 14:12 | P.PN_ITS ---
Subjective 2 Subjective: She says she is doing all right. Denies any new pain or discomfort. As discussed CT results with surgery. Continuing IV antibiotics at current time. He is going to see infectious disease specialist. States that if possible she would like to avoid as much as possible having IV antibiotics at home due to having animals. Vitals/I&O/Wt Last Vital Signs Temp 98.6 F 08/23/23 11:51 Pulse 75 08/23/23 11:51 Resp 18 08/23/23 11:51 BP 120/77 08/23/23 11:51 Pulse Ox 97 08/23/23 11:51 O2 Del Method Room Air 08/23/23 11:51 O2 Flow Rate 2 08/18/23 04:00 08/22/23 08/23/23 08/23/23 22:59 06:59 14:59 Intake Total 490 / 780 170 / 950 50 / 50 Output Total 10 / 210 Balance 490 / 580 160 / 740 50 / 50 Weight last 48 hrs Weight 71.395 kg Weight 72.756 kg Physical Exam 2 Narrative: Sitting up in bed. Const: COMMON NORMALS: patient oriented x3 and alert GENERAL APPEARANCE: c ooperative ORIENTATION/CONSCIOUSNESS: Yes awake HENMT: COMMON NORMALS: oropharynx normal Neck/C-Spine: COMMON NORMALS: no JVD Resp: COMMON NORMALS: normal respiratory effort and clear to auscultation bilaterally AUSCULTATION: clear to auscultation bilaterally Cardio: COMMON NORMALS: no JVD, regular rhythm, S1 normal heart sound present, S2 normal heart sound present and No murmurs present (Cardio) RHYTHM: regular rhythm HEART SOUNDS: S1 normal heart sound present and S2 normal heart sound present GI: COMMON NORMALS: Soft to palpation PALPATION: Yes Soft to palpation O THER: Pigtail drain with further drainage in the bag. GAMAL drain removed. Extremity: COMMON NORMALS: no joint enlargement and no pedal edema Neuro: COMMON NORMALS: patient oriented x3 and moves all extremities S ENSORIUM/ORIENTATION: Yes alert Skin: COMMON NORMALS: no rashes or lesions noted GENERAL SKIN EXAM: no rashes or lesions noted Data 08/23/23 05:05 08/23/23 06:21 A&P Assessment and plan (1) Gram-negative bacteremia: (2) Appendicitis: (3) Acute gangrenous appendicitis with perforation and peritonitis: (4) Intra-abdominal abscess: (5) Septic shock: (6) No pertinent past medical history: Plan Acute gangrenous and perforated appendicitis. Reviewed vitals, CBC, CMP, Blood culture, fluid culture. Reviewed surgery note. Discussed with nursing, employment case manager. Discussed with infectious disease. Continue IV antibiotics at this time. Surgery following up with regards to the drain as well. Reassess condition. Leukocytosis with some improvement today down to 15.5. Afebrile. With a small abscess near appendix not accessible by IR. Risk of worsening abscess, disseminated infection, sepsis. Fluid collection likely will need prolonged course of antibiotic. She requested at all possible not to have to do IV antibiotics at home due to having animals. Remote history of substance use. She would like to further discuss and consider options with infectious disease specialist. Has been on meropenem. Currently switched over to ceftriaxone, Flagyl p.o. monitor condition for continued response to therapy. Abscess fluid culture reviewed, growing pansensitive E. coli. Hydrocodone as needed for moderate pain. Wean as tolerating. Did require additional IV Dilaudid for pain. Encouraged ambulation, incentive spirometer. ? Status post laparoscopic appendectomy ? GAMAL drain in place, ? Was on pressors in the emergency room received IV antibiotics, received IV fluids, resolved -1 blood culture, positive for gram negative rods, gram negative bactremia -repeat ct scan abdomen/pelvis shows - CT/CT abdomen pelvis w con* [id number] IMPRESSION: 1. There are 2 loculated pockets of peritonitis in the cul-de-sac and in the right lower quadrant in the resection bed of the appendix. Postsurgical drain is passing anteriorly and inferiorly to these pockets. There is expected trace amount of free intraperitoneal fluid and air expected on day 3 after surgery. 2. There is fluid retention with new soft tissue edema, new small bilateral pleural effusions. There are passive dependent atelectatic changes in the lung bases. ? Continue Dilaudid for pain control -Antibiotic coverage expanded to meropenem -follow blood cultures, 1 blood culture positive for gram-negative rods, -Working on transfer to tertiary level center for IR guided drainage of fluid pockets versus drainage here possibly tomorrow Septated cystic lesion right adnexa for which follow-up ultrasound is recommended ? Has a family history of ovarian cancer ? CA125, elevated, will need to follow-up with Break Out Worker as outpatient -follow-up with gynecology as outpatient Urine shows trichomonas species, on meropenem Attestations 2 Medical Necessity Statement*: Continue admission for assessment of management of complicated/perforated appendicitis, intra-abdominal abscess. Diagnoses Gram-negative bacteremia R78.81 Appendicitis K37 Acute gangrenous appendicitis with perforation and peritonitis K35.32 Intra-abdominal abscess K65.1 Septic shock A41.9; R65.21 No pertinent past medical history Z78.9
[2023-08-23] MEDS: cefTRIAXone 2,000 MG in sodium chloride 0.9% (plus) 50 ML 100 MG IV (15:18)
[2023-08-23] MEDS: metroNIDAZOLE 500 MG Tablet PO ×2 (15:18→20:37)
[2023-08-23] MEDS: magnesium hydroxide 30 mL UDC PO (20:36)
[2023-08-24] VITALS (7 sets, daily range): BP systolic 113–126; BP diastolic 70–76; PULSE 69–85; RESP 15–18; TEMP 36.8–37.6; O2SAT 94–97
[2023-08-24] MEDS: HYDROcodone-acetaminophen 7.5-325 mg Tablet 1 TAB PO ×5 (01:12→21:23)
[2023-08-24 05:25] LABS: Basophils # 0.1 10^3/uL (0.0-0.1); Basophils % 0.5 %; Eosinophils # 0.2 10^3/uL (0.0-0.8); Eosinophils % 1.1 %; Hematocrit 24.4 % (36-47); Lymphocytes # 1.9 10^3/uL (0.8-4.8); Lymphocytes % 11.4 %; Mean Corpuscular Hemoglobin 22.5 pg (27-33); Mean Corpuscular Volume 70.3 fl (85-98); Monocytes % 6.2 %; Neutrophils # 12.91 10^3/uL (1.8-7.7); Neutrophils % 79.9 %; Nucleated Red Blood Cells % 0.1 %; Platelet Count 700 10^3/cmm (157-399); Red Blood Count 3.47 10^6/uL (3.85-5.65); Red Cell Distribution Width 15.8 % (12.1-15.1); White Blood Count 16.18 10^3/uL (3.29-11.43)
[2023-08-24 05:40] LABS: Add Urine Microscopic? YES; Bilirubin Urine Neg (Negative); Blood Urine 2+ (Negative); Glucose Urine UA Norm (Normal); Ketones Urine Negative (Negative); Leukocyte Esterase Urine Negative (Negative); Nitrate Urine Negative; Protein Urine Neg (Negative); Specific Gravity, Urine 1.015 (1.005-1.030); Urine Appearance Slightly Cloudy (CLEAR); Urine Color Yellow (Yellow); Urobilinogen Urine Neg (Negative); pH Urine 9 (5-7)
[2023-08-24 05:41] LABS: Add Urine Culture? No; Amorphous Sediment Urine 2+ /hpf; Bacteria Urine 1+ /hpf; Mucus Urine 1+ /hpf; RBC Urine 0-4 /hpf (0-2)
[2023-08-24 05:46] LABS: Alanine Aminotransferase 22 U/L (0-33); Alkaline Phosphatase 215 U/L (35-105); Anion Gap 14.2 (5-19); Aspartate Amino Transferase 24 U/L (0-32); Blood Urea Nitrogen 9 mg/dL (6-20); Calcium 8.5 mg/dL (8.5-10.5); Carbon Dioxide 28 mmol/L (22-29); Chloride 101 mmol/L (98-107); Creatinine Clr Calc Pharmacy 114.3878; Globulin 3.5 g/dL (1.3-4.6); Glomerular Filtration Rate 90.5 mL/min (90-130); Glucose 94 mg/dL (65-115); Osmolality Calculated 286 mOsm/kg (285-295); Potassium 4.2 mmol/L (3.5-5.1); Sodium 139 mmol/L (136-145); Total Bilirubin 0.2 mg/dL (0.15-1.2); Total Protein 6.5 g/dL (6.6-8.7)
[2023-08-24] MEDS: ketorolac 30 mg/mL INJ 15 MG IVP ×3 (07:17→20:07)
[2023-08-24] MEDS: docusate sodium 100 mg Capsule PO ×2 (08:19→17:21)
[2023-08-24] MEDS: vancomycin 1,000 MG in sodium chloride 0.9% 250 ML 250 MG IV ×2 (08:19→20:07)
[2023-08-24] MEDS: metroNIDAZOLE 500 MG Tablet PO ×3 (08:19→20:14)
[2023-08-24] MEDS: pantoprazole DR 40 mg Tablet PO (08:19)
--- NOTE | 2023-08-24 08:19 | P.PN_ITS ---
Subjective 2 Subjective: This a 43-year-old female who is postoperative day 9 status post laparoscopic appendectomy for perforated acute appendicitis with peritonitis. Patient was noted to have an intra-abdominal abscess, underwent drainage from postoperative day 5, due to uptrending white count she had a repeat CT scan on postoperative day 7 which show evidence of adequate drainage of the pelvic abscess but persistent about mid abdominal abscess that he is incased between bowel loops the abscess measures about 3 cm. In the last 24 hours patient states that she is feeling better, has tolerated diet, is passing gas and having bowel movements. Abdominal pain has improved as well as distention. Vitals/I&O/Wt Last Vital Signs Temp 98.5 F 08/24/23 07:49 Pulse 81 08/24/23 07:49 Resp 15 08/24/23 07:49 BP 119/76 08/24/23 07:49 Pulse Ox 95 08/24/23 07:49 O2 Del Method Room Air 08/24/23 07:49 O2 Flow Rate 2 08/18/23 04:00 08/23/23 08/24/23 08/24/23 22:59 06:59 14:59 Intake Total 410 / 460 Output Total 55 / 55 320 / 375 Balance 355 / 405 -320 / 85 Weight last 48 hrs Weight 153 lb Weight 157 lb 6.4 oz Physical Exam 2 GI: OTHER: Abdomen is soft, distended but improved from yesterday, minimally tender in the right hemiabdomen, this is an improvement from yesterday. Drain is in place with minimal seropurulent drainage. Data 08/24/23 04:54 08/24/23 04:54 Micro: Microbiology 08/24/23 04:54 Blood Culture - Preliminary Blood SPECIMEN COLLECTED 08/18/23 14:15 Blood Culture - Final Blood NO GROWTH AFTER 5 DAYS 08/18/23 14:11 Blood Culture - Final Blood NO GROWTH AFTER 5 DAYS A&P Assessment and plan (1) Acute gangrenous appendicitis with perforation and peritonitis: (2) Intra-abdominal abscess: Plan Postoperative day 9 status post laparoscopic appendectomy, postoperative day 4 status post IR drainage of pelvic abscess. I have been asked to oversee the care of this patient after my colleague Dr. Isidro when out of town on vacation. Clinically improving, despite this white count has noted to remain elevated to 16 up from 15 yesterday. In addition to that vital signs are stable but patient has consistently had a temperature about 99. I had extensive discussion regarding this findings with infectious diseases. We have decided to increase antibiotic coverage with vancomycin. And in addition we will start the patient on Toradol to rule out an inflammatory source of the mild elevation of the temperature. Patient agreed to IV antibiotics a PICC line will be placed today, we will set up antibiotics over the weekend and if patient is stable and white count remains stable or downtrending we will plan for discharging on Sunday. I have extensive discussion with the patient regarding the possibility of surgery in the future I explained that at this point we will like to avoid the need of surgery is much as possible as in the early postoperative. Significant inflammation additions conform resulting of high risk for morbidity and mortality from repeat surgical intervention. Patient shows understanding will continue management as discussed Attestations 2 Medical Necessity Statement*: Patient will require 48 to 72 hours of hospital care for IV antibiotics and to ensure stable white count. Coding Level of Care Code 61032 Diagnoses Acute gangrenous appendicitis with perforation and peritonitis K35.32 Intra-abdominal abscess K65.1
--- NOTE | 2023-08-24 09:13 | XR_ITS ---
WS: [id number] Exam: XR chest 1V portable [id number] Date/Time of Exam: 08/24/2023 9:53 AM Reason For Exam: Post PICC insertion Comparison 04/20/2023. Right-sided PICC line appears to end at the cavoatrial junction. The heart is enlarged. Bibasal plaqu e atelectasis. No pneumothorax noted. The mediastinum is normal in contour. Bony structures are intac t. The lateral RIGHT lung zone is out of the [id number]. XR/XR chest 1V portable [id number] IMPRESSION: 1. Right-sided PICC line appearing to enter the cavoatrial junction. 2. Mild cardiac enlargement and bibasal plaque atelectasis.
--- NOTE | 2023-08-24 10:00 | PICC.NOTE ---
Single lumen PICC placed to right basilic vein. Referred to vascular access nurse for PICC placement due to need for IV antibiotics x 4 weeks. Risks and benefits discussed and informed consent obtained from patient. Right arm assessed with right basilic vein measuring 4.0 mm, straight, and apparent best choice for placement. Using sterile technique and MST, right basilic vein accessed x 1 stick. Mid-arm circumference measured 10 cm from right AC 27 cm. Trimmed cath 42 cm with 1 cm external length noted. CXR shows tip in cavoatrial junction, in good position for use per radiologist. Line secured with stat-lock. Insertion site covered with Biopatch and TSM. Report given to bedside nurse, ALEX Chacon.
[2023-08-24] MEDS: cefTRIAXone 2,000 MG in sodium chloride 0.9% (plus) 50 ML 100 MG IV (14:12)
--- NOTE | 2023-08-24 20:10 | PM.PN ---
Subjective Subjective: She states she feels she is been continuing to improve. She was ambulated and had another bowel movement. She has been using incentive spirometer. Vitals/I&O/Wt Last Vital Signs Temp 98.4 F 08/24/23 16:00 Pulse 74 08/24/23 16:00 Resp 17 08/24/23 16:00 BP 113/72 08/24/23 16:00 Pulse Ox 97 08/24/23 16:00 O2 Del Method Nasal Cannula 08/24/23 16:00 O2 Flow Rate 2 08/18/23 04:00 08/24/23 08/24/23 08/24/23 06:59 14:59 22:59 Intake Total 610 / 610 290 / 900 Output Total 320 / 375 35 / 35 Balance -320 / 85 610 / 610 255 / 865 Weight last 48 hrs Weight 69.4 kg Weight 71.395 kg Physical Exam Narrative: Sitting up in bed. Const: COMMON NORMALS: patient oriented x3 and alert GENERAL APPEARANCE: cooperative ORIENTATION/CONSCIOUSNESS: Yes awake HENMT: COMMON NORMALS: oropharynx normal Neck/C-Spine: COMMON NORMALS: no JVD Resp: COMMON NORMALS: normal respiratory effort and clear to auscultation bilaterally AUSCULTATION: clear to auscultation bilaterally Cardio: COMMON NORMALS: no JVD, regular rhythm, S1 normal heart sound present, S2 normal heart sound present and No murmurs present (Cardio) RHYTHM: regular rhythm HEART SOUNDS: S1 normal heart sound present and S2 normal heart sound present GI: COMMON NORMALS: Soft to palpation PALPATION: Yes Soft to palpation OTHER: Pigtail drain with small amt of drainage in the bag from flushes. GAMAL drain removed. Extremity: COMMON NORMALS: no joint enlargement and no pedal edema Neuro: COMMON NORMALS: patient oriented x3 and moves all extremities SENSORIUM/ORIENTATION: Yes alert Skin: COMMON NORMALS: no rashes or lesions noted GENERAL SKIN EXAM: no rashes or lesions noted Data 08/24/23 04:54 08/24/23 04:54 Micro: Microbiology 08/24/23 04:54 Blood Culture - Preliminary Blood SPECIMEN COLLECTED A&P Assessment and plan (1) Gram-negative bacteremia: (2) Appendicitis: (3) Acute gangrenous appendicitis with perforation and peritonitis: (4) Intra-abdominal abscess: (5) Septic shock: (6) No pertinent past medical history: Plan Acute gangrenous and perforated appendicitis. Subjectively she is improving but on continued IV antibiotics and with some worsening leukocytosis up to 16.2. Reviewed vitals, CBC, CMP, surgery note, infectious disease note. Agree with broadening antibiotics with vancomycin. Discussed with case management. Continued with IV antibiotics at this time. Surgery following up with regards to the drain as well. Reassess condition. With a small abscess near appendix not accessible by IR. She understands the risk of worsening abscess, disseminated infection, sepsis. Fluid collection likely will need prolonged course of antibiotic. She requested at all possible not to have to do IV antibiotics at home due to having animals. Remote history of substance use. After discussion plans are for further outpatient IV antibiotic therapy to be completed after discharge. Abscess fluid culture reviewed, growing pansensitive E. coli. Hydrocodone as needed for moderate pain. Wean as tolerating. Did require additional IV Dilaudid for pain. Encouraged ambulation, incentive spirometer. Follow-up CBC requested. ? Status post laparoscopic appendectomy ? GAMAL drain is out ? Was on pressors in the emergency room received IV antibiotics, received IV fluids, resolved -1 blood culture reviewed, Bacteroides (B fragilis group)., Abscess culture growing E. coli. -repeat ct scan abdomen/pelvis shows - CT/CT abdomen pelvis w con* [id number] IMPRESSION: 1. There are 2 loculated pockets of peritonitis in the cul-de-sac and in the right lower quadrant in the resection bed of the appendix. Postsurgical drain is passing anteriorly and inferiorly to these pockets. There is expected trace amount of free intraperitoneal fluid and air expected on day 3 after surgery. 2. There is fluid retention with new soft tissue edema, new small bilateral pleural effusions. There are passive dependent atelectatic changes in the lung bases. ? Continue hydrocodone for pain control. The IV Dilaudid expiring, so far without further use. Will discontinue. -Antibiotic coverage expanded to meropenem -follow blood cultures, 1 blood culture positive for gram-negative rods, -Working on transfer to tertiary level center for IR guided drainage of fluid pockets versus drainage here possibly tomorrow Septated cystic lesion right adnexa for which follow-up ultrasound is recommended ? Has a family history of ovarian cancer ? CA125, elevated, will need to follow-up with Program Manager Environmental Planning as outpatient -follow-up with gynecology as outpatient Urine shows trichomonas species, on Flagyl Attestations Medical Necessity Statement*: Continue admission for assessment of management of complicated/perforated appendicitis, intra-abdominal abscess. and High MDM includes amount and/or complexity of data reviewed/ordered [ resulted lab(s)/test(s) and other healthcare professional discussion] as documented Diagnoses Gram-negative bacteremia R78.81 Appendicitis K37 Acute gangrenous appendicitis with perforation and peritonitis K35.32 Intra-abdominal abscess K65.1 Septic shock A41.9; R65.21 No pertinent past medical history Z78.9
[2023-08-24] MEDS: magnesium hydroxide 30 mL UDC PO (20:14)
[2023-08-25] MEDS: ketorolac 30 mg/mL INJ 15 MG IVP ×3 (01:52→14:53)
[2023-08-25] MEDS: HYDROcodone-acetaminophen 7.5-325 mg Tablet 1 TAB PO ×4 (01:52→21:30)
[2023-08-25 04:00] VITALS: BP 124/72; PULSE 84; RESP 16; TEMP 37; O2SAT 96
[2023-08-25 05:28] LABS: Adenovirus Not Detected (NOT DETECT); Chlamydia Pneumoniae Not Detected (NOT DETECT); Coronavirus 229E,HKU1,NL63,OC4 Not Detected (NOT DETECT); Human Metapneumovirus Not Detected (NOT DETECT); Human Rhinovirus/Enterovirus Not Detected (NOT DETECT); Influenza A Not Detected (NOT DETECT); Influenza A H1 Not Detected (NOT DETECT); Influenza A H1-2009 Not Detected (NOT DETECT); Influenza A H3 Not Detected (NOT DETECT); Influenza B Not Detected (NOT DETECT); Mycoplasma Pneumoniae Not Detected (NOT DETECT); Parainfluenza Virus Type 1 Not Detected (NOT DETECT); Parainfluenza Virus Type 2 Not Detected (NOT DETECT); Parainfluenza Virus Type 3 Not Detected (NOT DETECT); Parainfluenza Virus Type 4 Not Detected (NOT DETECT); Respiratory Syncytial Virus A Not Detected (NOT DETECT); Respiratory Syncytial Virus B Not Detected (NOT DETECT); SARS-COV-2 Not Detected (NOT DETECT)
[2023-08-25 05:37] LABS: Basophils # 0.1 10^3/uL (0.0-0.1); Basophils % 0.6 %; Eosinophils # 0.3 10^3/uL (0.0-0.8); Eosinophils % 1.6 %; Hematocrit 22.1 % (36-47); Lymphocytes # 1.5 10^3/uL (0.8-4.8); Mean Corpuscular HGB Conc 31.7 g/dL (30-55); Mean Corpuscular Hemoglobin 22.5 pg (27-33); Mean Corpuscular Volume 71.1 fl (85-98); Monocytes % 6.6 %; Neutrophils # 12.22 10^3/uL (1.8-7.7); Neutrophils % 80.4 %; Nucleated Red Blood Cells % 0 %; Platelet Count 630 10^3/cmm (157-399); Red Blood Count 3.11 10^6/uL (3.85-5.65); Red Cell Distribution Width 16.1 % (12.1-15.1); White Blood Count 15.21 10^3/uL (3.29-11.43)
--- NOTE | 2023-08-25 06:35 | PM.PN ---
Vitals/I&O/Wt Last Vital Signs Temp 98.6 F 08/25/23 04:00 Pulse 84 08/25/23 04:00 Resp 16 08/25/23 04:00 BP 124/72 08/25/23 04:00 Pulse Ox 96 08/25/23 04:00 O2 Del Method Room Air 08/25/23 04:00 O2 Flow Rate 2 08/18/23 04:00 08/24/23 08/24/23 08/25/23 14:59 22:59 06:59 Intake Total 610 / 610 780 / 1390 Output Total 35 / 35 Balance 610 / 610 745 / 1355 Weight last 48 hrs Weight 67.585 kg Weight 69.4 kg Data 08/25/23 05:10 08/24/23 04:54 Micro: Microbiology 08/24/23 04:54 Blood Culture - Preliminary Blood NEGATIVE TO DATE Coding Level of Care Code Acute Code for [facility]
--- NOTE | 2023-08-25 07:50 | P.PN_ITS ---
Subjective 2 Subjective: This a 43-year-old female who is postoperative day 10 status post laparoscopic appendectomy for perforated acute appendicitis with peritonitis. Patient was noted to have an intra-abdominal abscess, underwent drainage from postoperative day 5, due to uptrending white count she had a repeat CT scan on postoperative day 7 which show evidence of adequate drainage of the pelvic abscess but persistent about mid abdominal abscess that he is incased between bowel loops the abscess measures about 3 cm. In the last 24 hours patient states that she is feeling better, has tolerated diet, is passing gas and having bowel movements. Abdominal pain has improved as well as distention. Vitals/I&O/Wt Last Vital Signs Temp 98.6 F 08/25/23 04:00 Pulse 84 08/25/23 04:00 Resp 16 08/25/23 04:00 BP 124/72 08/25/23 04:00 Pulse Ox 96 08/25/23 04:00 O2 Del Method Room Air 08/25/23 04:00 O2 Flow Rate 2 08/18/23 04:00 08/24/23 08/25/23 08/25/23 22:59 06:59 14:59 Intake Total 780 / 1390 Output Total 35 / 35 Balance 745 / 1355 Weight last 48 hrs Weight 149 lb Weight 153 lb Physical Exam 2 GI: OTHER: Abdomen is soft, minimally tender to palpation which is improvement from yesterday, distention has also improved. IR placed drain draining minimal amount of seropurulent fluid. Data 08/25/23 05:10 08/24/23 04:54 Micro: Microbiology 08/24/23 04:54 Blood Culture - Preliminary Blood NEGATIVE TO DATE A&P Assessment and plan (1) Acute gangrenous appendicitis with perforation and peritonitis: (2) Intra-abdominal abscess: Plan Postoperative day 10 status post laparoscopic appendectomy, postoperative day 5 status post IR drainage of pelvic abscess. Clinically improving, less abdominal pain and overall feeling better. We have scheduled her antibiotics yesterday. She appears to have a good response her white count decreased to 15. Will start her on some NSAIDs yesterday and she has not had any episodes of fever. I Was tensive discussion regarding the case with infectious diseases team. I agree with the need of IV antibiotics at home. I will discuss the elevated white count, the consensus is that unless the white count is trending up or there is clinical deterioration we might expect a delayed response of the white count due to the severity of the infection. Having this in consideration we will keep the patient over the weekend for observation and to ensure adequate progression and will be probably sending her home on Sunday. Patient shows understanding and is agreeable with the plan will continue to ambulate and use incentive spirometer as indicated. Attestations 2 Medical Necessity Statement*: Probable discharge on Sunday will require IV antibiotics at home. Coding Level of Care Code Acute Code for [facility] Diagnoses Acute gangrenous appendicitis with perforation and peritonitis K35.32 Intra-abdominal abscess K65.1
[2023-08-25 07:55] LABS: HPLC Confirms; Hematocrit 25.8 % (35.0-45.0); Hemoglobin 7.6 g/dL (11.7-15.5); Hemoglobinopathy Ferritin 126 ng/mL (16-232); Hemoglobinopathy MCH 22.3 pg (27.0-33.0); Hemoglobinopathy MCHC 29.5 g/dL (32.0-36.0); Hemoglobinopathy MCV 75.7 fL (80.0-100.0); Hemoglobinopathy RDW 16.6 % (11.0-15.0); Red Blood Cell Count 3.41 Mill/uL (3.80-5.10)
[2023-08-25 08:00] VITALS: BP 124/75; PULSE 73; RESP 15; TEMP 36.8; O2SAT 97
[2023-08-25] MEDS: vancomycin 1,000 MG in sodium chloride 0.9% 250 ML 250 MG IV ×2 (08:18→19:58)
[2023-08-25] MEDS: metroNIDAZOLE 500 MG Tablet PO ×3 (08:20→19:59)
[2023-08-25] MEDS: pantoprazole DR 40 mg Tablet PO (08:20)
[2023-08-25] MEDS: docusate sodium 100 mg Capsule PO ×2 (08:20→18:10)
--- NOTE | 2023-08-25 08:35 | PC.NURSE ---
Patient refuses SCDs due to up walking and they area a pain in the butt when trying to get up to the restroom.
[2023-08-25 11:36] VITALS: BP 114/67; PULSE 72; RESP 16; TEMP 36.4; O2SAT 95
[2023-08-25] MEDS: cefTRIAXone 2,000 MG in sodium chloride 0.9% (plus) 50 ML 100 MG IV (14:52)
[2023-08-25 16:00] VITALS: PULSE 76; RESP 16; TEMP 36.8; O2SAT 98
--- NOTE | 2023-08-25 18:37 | P.PN_ITS ---
Vitals/I&O/Wt Last Vital Signs Temp 98.3 F 08/25/23 16:00 Pulse 76 08/25/23 16:00 Resp 16 08/25/23 16:00 BP 114/67 08/25/23 11:36 Pulse Ox 98 08/25/23 16:00 O2 Del Method Room Air 08/25/23 16:00 O2 Flow Rate 2 08/18/23 04:00 08/25/23 08/25/23 08/25/23 06:59 14:59 22:59 Intake Total 480 / 480 490 / 970 Balance 480 / 480 490 / 970 Weight last 48 hrs Weight 67.585 kg Weight 69.4 kg Physical Exam 2 Narrative: Sitting up in bed. Const: COMMON NORMALS: patient oriented x3 and alert GENERAL APPEARANCE: c ooperative ORIENTATION/CONSCIOUSNESS: Yes awake HENMT: COMMON NORMALS: oropharynx normal Neck/C-Spine: COMMON NORMALS: no JVD Resp: COMMON NORMALS: normal respiratory effort and clear to auscultation bilaterally AUSCULTATION: clear to auscultation bilaterally Cardio: COMMON NORMALS: no JVD, regular rhythm, S1 normal heart sound present, S2 normal heart sound present and No murmurs present (Cardio) RHYTHM: regular rhythm HEART SOUNDS: S1 normal heart sound present and S2 normal heart sound present GI: COMMON NORMALS: Soft to palpation PALPATION: Yes Soft to palpation O THER: Pigtail drain with small amt of drainage in the bag from flushes. GAMLA drain removed. Extremity: COMMON NORMALS: no joint enlargement and no pedal edema Neuro: COMMON NORMALS: patient oriented x3 and moves all extremities S ENSORIUM/ORIENTATION: Yes alert Skin: COMMON NORMALS: no rashes or lesions noted GENERAL SKIN EXAM: no rashes or lesions noted Data 08/25/23 15:29 08/24/23 04:54 Micro: Microbiology 08/25/23 16:04 Occult Blood (FIT) - Final Stool - Stool Aspirate 08/24/23 04:54 Blood Culture - Preliminary Blood NEGATIVE TO DATE A&P Assessment and plan (1) Gram-negative bacteremia: (2) Appendicitis: (3) Acute gangrenous appendicitis with perforation and peritonitis: (4) Intra-abdominal abscess: (5) Septic shock: (6) No pertinent past medical history: Plan Acute gangrenous and perforated appendicitis. Reviewed vitals, CBC, vancomycin trough, surgery note, ID note. Continued with IV antibiotics at this time. Surgery following up with regards to the drain as well. Reassess condition. With a small abscess near appendix not accessible by IR. She understands the risk of worsening abscess, disseminated infection, sepsis. Fluid collection likely will need prolonged course of antibiotic. She requested at all possible not to have to do IV antibiotics at home due to having animals. Remote history of substance use. After discussion plans are for further outpatient IV antibiotic therapy to be completed after discharge. Abscess fluid culture reviewed, growing pansensitive E. coli. Hydrocodone as needed for moderate pain. Wean as tolerating. Did require additional IV Dilaudid for pain. Encouraged ambulation, incentive spirometer. Follow-up CBC requested. Anemia: Acute worsening of anemia, hemoglobin down to 7 today. Reviewed vitals, hemoglobin, platelets, requested Hemoccult. Discussed with her. She reports history of iron deficiency anemia. Discussed potential risk with IV iron with ongoing infection, discussed also possible risk with oral iron, she would like to avoid IV iron, would like to start oral iron as she would like to avoid blood transfusion as much as possible, as per discussion she states even if her hemoglobin falls below 7 which would be the recommended threshold for transfusion. Recheck hemoglobin obtained, down to 6.9. Hemoccult is positive. Stop oral PPI, start IV PPI twice daily. Stop ketorolac. Reassess blood counts. ? Status post laparoscopic appendectomy ? GAMAL drain is out ? Was on pressors in the emergency room received IV antibiotics, received IV fluids, resolved -1 blood culture reviewed, Bacteroides (B fragilis group)., Abscess culture growing E. coli. -repeat ct scan abdomen/pelvis shows - CT/CT abdomen pelvis w con* [id number] IMPRESSION: 1. There are 2 loculated pockets of peritonitis in the cul-de-sac and in the right lower quadrant in the resection bed of the appendix. Postsurgical drain is passing anteriorly and inferiorly to these pockets. There is expected trace amount of free intraperitoneal fluid and air expected on day 3 after surgery. 2. There is fluid retention with new soft tissue edema, new small bilateral pleural effusions. There are passive dependent atelectatic changes in the lung bases. ? Continue hydrocodone for pain control. The IV Dilaudid expiring, so far without further use. Will discontinue. -Antibiotic coverage expanded to meropenem -follow blood cultures, 1 blood culture positive for gram-negative rods, -Working on transfer to tertiary level center for IR guided drainage of fluid pockets versus drainage here possibly tomorrow Septated cystic lesion right adnexa for which follow-up ultrasound is recommended ? Has a family history of ovarian cancer ? CA125, elevated, will need to follow-up with Software Sales Executive as outpatient -follow-up with gynecology as outpatient Urine shows trichomonas species, on Flagyl Attestations 2 Medical Necessity Statement*: Continue admission for assessment of management of complicated/perforated appendicitis, intra-abdominal abscess. and High MDM includes described risk of complication, morbidity or mortality of management as documented Diagnoses Gram-negative bacteremia R78.81 Appendicitis K37 Acute gangrenous appendicitis with perforation and peritonitis K35.32 Intra-abdominal abscess K65.1 Septic shock A41.9; R65.21 No pertinent past medical history Z78.9
[2023-08-25 19:31] VITALS: BP 111/71; PULSE 71; RESP 18; TEMP 36.7; O2SAT 96
[2023-08-25 19:34] LABS: Ferritin 127 ng/mL (15-150); Iron 18 ug/dL (37-145)
[2023-08-25 19:42] LABS: Percent Saturation 7.6 % (20-50); Total Iron Binding Capacity 235 mcg/dl
[2023-08-25 19:43] LABS: Unsaturated Iron Binding 217 ug/dL (112-347)
[2023-08-25] MEDS: pantoprazole 40 mg SDV IVP (19:56)
[2023-08-25] MEDS: magnesium hydroxide 30 mL UDC PO (19:59)
[2023-08-25] MEDS: ferrous sulfate EC 325 mg Tablet PO (21:30)
[2023-08-26] VITALS: BP 131/85; PULSE 79; RESP 19; TEMP 36.9; O2SAT 90
[2023-08-26 03:47] VITALS: BP 125/78; PULSE 73; RESP 17; TEMP 36.7; O2SAT 93
[2023-08-26] MEDS: HYDROcodone-acetaminophen 7.5-325 mg Tablet 1 TAB PO ×4 (04:38→22:23)
[2023-08-26 04:43] LABS: Basophils # 0.1 10^3/uL (0.0-0.1); Basophils % 0.4 %; Eosinophils # 0.3 10^3/uL (0.0-0.8); Eosinophils % 1.6 %; Hematocrit 21.7 % (36-47); Lymphocytes # 1.7 10^3/uL (0.8-4.8); Lymphocytes % 10.9 %; Mean Corpuscular HGB Conc 32.3 g/dL (30-55); Mean Corpuscular Hemoglobin 22.5 pg (27-33); Mean Corpuscular Volume 69.8 fl (85-98); Mean Platelet Volume 9.7 fL (7.4-10.4); Monocytes # 1.1 10^3/uL (0.2-0.9); Neutrophils % 79.5 %; Nucleated Red Blood Cells % 0 %; Platelet Count 738 10^3/cmm (157-399); Red Blood Count 3.11 10^6/uL (3.85-5.65); Red Cell Distribution Width 16.1 % (12.1-15.1); White Blood Count 15.74 10^3/uL (3.29-11.43)
[2023-08-26] MEDS: pantoprazole 40 mg SDV IVP ×2 (06:04→16:27)
[2023-08-26 06:59] VITALS: BP 126/81; PULSE 69; RESP 17; TEMP 37.2; O2SAT 92
--- NOTE | 2023-08-26 07:53 | P.PN_ITS ---
Subjective 2 Subjective: This a 43-year-old female who is postoperative day 11 status post laparoscopic appendectomy for perforated acute appendicitis with peritonitis. Patient was noted to have an intra-abdominal abscess, underwent drainage from postoperative day 5, due to uptrending white count she had a repeat CT scan on postoperative day 7 which show evidence of adequate drainage of the pelvic abscess but persistent about mid abdominal abscess that he is incased between bowel loops the abscess measures about 3 cm. I doing well over the last 24 hours, no acute events overnight, has been afebrile, abdominal pain has significantly improved, continues to have bowel function. Vitals/I&O/Wt Last Vital Signs Temp 98.9 F 08/26/23 06:59 Pulse 69 08/26/23 06:59 Resp 17 08/26/23 06:59 BP 126/81 08/26/23 06:59 Pulse Ox 92 08/26/23 06:59 O2 Del Method Room Air 08/26/23 06:59 O2 Flow Rate 2 08/18/23 04:00 08/25/23 08/26/23 08/26/23 22:59 06:59 14:59 Intake Total 1290 / 1770 200 / 1970 Output Total 50 / 50 Balance 1240 / 1720 200 / 1920 Weight last 48 hrs Weight 152 lb Weight 152 lb Weight 149 lb Physical Exam 2 GI: OTHER: Abdomen is soft, mildly distended, minimally tender to palpation the right hemiabdomen. Data 08/26/23 04:35 08/24/23 04:54 Micro: Microbiology 08/25/23 16:04 Occult Blood (FIT) - Final Stool - Stool Aspirate 08/24/23 04:54 Blood Culture - Preliminary Blood NEGATIVE TO DATE A&P Assessment and plan (1) Acute gangrenous appendicitis with perforation and peritonitis: (2) Pelvic abscess: (3) Intra-abdominal abscess: Plan Postoperative day 11 status post laparoscopic appendectomy, postoperative day 6 status post IR drainage of pelvic abscess. Clinically improving, less abdominal pain and overall feeling better. With current antibiotic regimen white count has remained stable at 15. His white count continues to be 15 and there is no significant uptrend the plan is for discharge tomorrow for continued IV antibiotics at home, 10 days after discharge patient will have a CT scan of the abdomen and pelvis with contrast to evaluate for any residual clot and will collections and decide on any need for additional therapy. Patient shows understanding is agreeable with the plan. Case has been discussed with infectious diseases team. -Continue IV antibiotics -Continue ambulating as tolerated -Pain control -Daily CBC Attestations 2 Medical Necessity Statement*: Patient will likely be discharged home tomorrow after authorization for antibiotics obtained from insurance company. Coding Level [facility] Care [facility] Diagnoses Acute gangrenous appendicitis with perforation and peritonitis K35.32 Pelvic abscess Intra-abdominal abscess K65.1
[2023-08-26] MEDS: vancomycin 1,000 MG in sodium chloride 0.9% 250 ML 250 MG IV (08:28)
[2023-08-26] MEDS: docusate sodium 100 mg Capsule PO ×2 (08:29→16:27)
[2023-08-26] MEDS: ferrous sulfate EC 325 mg Tablet PO (08:29)
[2023-08-26] MEDS: metroNIDAZOLE 500 MG Tablet PO ×3 (08:29→20:48)
[2023-08-26 10:24] VITALS: BP 107/71; PULSE 73; RESP 18; TEMP 37; O2SAT 94
[2023-08-26 15:35] VITALS: BP 107/68; PULSE 76; RESP 18; TEMP 37.1; O2SAT 95
[2023-08-26] MEDS: cefTRIAXone 2,000 MG in sodium chloride 0.9% (plus) 50 ML 100 MG IV (16:27)
--- NOTE | 2023-08-26 19:13 | P.PN_ITS ---
Subjective 2 Subjective: He denies any additional complaints. No recurrent or new abdominal pain or discomfort. Discussed with her positive Hemoccult, she says she also had seen a small amount of blood when wiping on the tissue paper. Vitals/I&O/Wt Last Vital Signs Temp 98.7 F 08/26/23 15:35 Pulse 76 08/26/23 15:35 Resp 18 08/26/23 15:35 BP 107/68 08/26/23 15:35 Pulse Ox 95 08/26/23 15:35 O2 Del Method Room Air 08/26/23 15:35 O2 Flow Rate 2 08/18/23 04:00 08/26/23 08/26/23 08/26/23 06:59 14:59 22:59 Intake Total 200 / 1970 610 / 610 290 / 900 Balance 200 / 1920 610 / 610 290 / 900 Weight last 48 hrs Weight 68.946 kg Weight 68.946 kg Weight 67.585 kg Physical Exam 2 Narrative: Sitting up in bed. Const: COMMON NORMALS: patient oriented x3 and alert GENERAL APPEARANCE: c ooperative ORIENTATION/CONSCIOUSNESS: Yes awake HENMT: COMMON NORMALS: oropharynx normal Neck/C-Spine: COMMON NORMALS: no JVD Resp: COMMON NORMALS: normal respiratory effort and clear to auscultation bilaterally AUSCULTATION: clear to auscultation bilaterally Cardio: COMMON NORMALS: no JVD, regular rhythm, S1 normal heart sound present, S2 normal heart sound present and No murmurs present (Cardio) RHYTHM: regular rhythm HEART SOUNDS: S1 normal heart sound present and S2 normal heart sound present GI: COMMON NORMALS: Soft to palpation PALPATION: Yes Soft to palpation O THER: Pigtail drain with small amt of drainage in the bag from flushes. GAMAL drain removed. Extremity: COMMON NORMALS: no joint enlargement and no pedal edema Neuro: COMMON NORMALS: patient oriented x3 and moves all extremities S ENSORIUM/ORIENTATION: Yes alert Skin: COMMON NORMALS: no rashes or lesions noted GENERAL SKIN EXAM: no rashes or lesions noted Data 08/26/23 04:35 08/24/23 04:54 Micro: Microbiology 08/25/23 16:04 Occult Blood (FIT) - Final Stool - Stool Aspirate A&P Assessment and plan (1) Gram-negative bacteremia: (2) Appendicitis: (3) Acute gangrenous appendicitis with perforation and peritonitis: (4) Intra-abdominal abscess: (5) Septic shock: (6) No pertinent past medical history: Plan Acute gangrenous and perforated appendicitis. Reviewed vitals, reviewed CBC, reviewed CBC, reviewed ferritin. Studies suggestive of iron deficiency. Reviewed Hemoccult, positive. Discussed with her, discussed with surgeon. Hemoglobin today is 7. She would like to avoid blood transfusion. Discussed with her again regarding theoretical risks with iron. She would like to continue supplementation. Increasing PPI . Continue. Per discussion with surgery they will follow-up with her with consideration of endoscopic evaluation in about 6 weeks. Follow-up CBC. She is to maintain IR drain in place for now at discharge until reassessment by surgery. Reviewed surgery note. Continued with IV antibiotics at this time. Surgery following up with regards to the drain as well. Reassess condition. With a small abscess near appendix not accessible by IR. She understands the risk of worsening abscess, disseminated infection, sepsis. Fluid collection likely will need prolonged course of antibiotic. She requested at all possible not to have to do IV antibiotics at home due to having animals. Remote history of substance use. After discussion plans are for further outpatient IV antibiotic therapy to be completed after discharge. Abscess fluid culture reviewed, growing pansensitive E. coli. Hydrocodone as needed for moderate pain. Wean as tolerating. Off IV Dilaudid for pain. Encouraged ambulation, incentive spirometer. Anemia: hemoglobin 7 today. Positive Hemoccult. Discussed with her. She reports history of iron deficiency anemia. Would like to continue oral iron. Follow-up with surgery for additional assessment with consideration of endoscopy per discussion to be given in 6 weeks. Reassess blood counts. ? Status post laparoscopic appendectomy ? GAMAL drain is out ? Was on pressors in the emergency room received IV antibiotics, received IV fluids, resolved -1 blood culture reviewed, Bacteroides (B fragilis group)., Abscess culture growing E. coli. -repeat ct scan abdomen/pelvis shows - CT/CT abdomen pelvis w con* [id number] IMPRESSION: 1. There are 2 loculated pockets of peritonitis in the cul-de-sac and in the right lower quadrant in the resection bed of the appendix. Postsurgical drain is passing anteriorly and inferiorly to these pockets. There is expected trace amount of free intraperitoneal fluid and air expected on day 3 after surgery. 2. There is fluid retention with new soft tissue edema, new small bilateral pleural effusions. There are passive dependent atelectatic changes in the lung bases. ? Continue hydrocodone for pain control. The IV Dilaudid expiring, so far without further use. Will discontinue. -Antibiotic coverage expanded to meropenem -follow blood cultures, 1 blood culture positive for gram-negative rods, -Working on transfer to tertiary level center for IR guided drainage of fluid pockets versus drainage here possibly tomorrow Septated cystic lesion right adnexa for which follow-up ultrasound is recommended ? Has a family history of ovarian cancer ? CA125, elevated, will need to follow-up with Special Events Assistant as outpatient -follow-up with gynecology as outpatient Urine shows trichomonas species, on Flagyl Attestations 2 Medical Necessity Statement*: Continue admission for assessment of management of complicated/perforated appendicitis, intra-abdominal abscess. and High MDM includes amount and/or complexity of data reviewed/ordered [ previous or external records, resulted lab(s)/test(s), ordered lab(s)/test(s) and other healthcare professional discussion] and described risk of complication, morbidity or mortality of management as documented Diagnoses Gram-negative bacteremia R78.81 Appendicitis K37 Acute gangrenous appendicitis with perforation and peritonitis K35.32 Intra-abdominal abscess K65.1 Septic shock A41.9; R65.21 No pertinent past medical history Z78.9
[2023-08-26 20:00] VITALS: BP 101/58; PULSE 77; RESP 18; TEMP 37.3; O2SAT 96
[2023-08-26] MEDS: magnesium hydroxide 30 mL UDC PO (20:48)
[2023-08-26] MEDS: vancomycin 1,250 MG/250 ML PIGGYBACK 250 MG IV (20:50)
--- NOTE | 2023-08-26 22:45 | PC.NURSE ---
Drain flushed with 8mLs of normal saline per physician orders.
[2023-08-27] VITALS: BP 105/67; PULSE 72; RESP 17; TEMP 36.9; O2SAT 96
[2023-08-27] MEDS: HYDROcodone-acetaminophen 7.5-325 mg Tablet 1 TAB PO ×2 (03:19→08:15)
[2023-08-27 04:00] VITALS: BP 102/68; PULSE 72; RESP 17; TEMP 37.1; O2SAT 95
[2023-08-27] MEDS: pantoprazole 40 mg SDV IVP (05:43)
[2023-08-27 05:59] LABS: Basophils # 0.1 10^3/uL (0.0-0.1); Basophils % 0.5 %; Eosinophils # 0.3 10^3/uL (0.0-0.8); Eosinophils % 2.3 %; Hematocrit 22.8 % (36-47); Lymphocytes # 1.5 10^3/uL (0.8-4.8); Mean Corpuscular HGB Conc 32.9 g/dL (30-55); Mean Corpuscular Hemoglobin 22.9 pg (27-33); Mean Corpuscular Volume 69.5 fl (85-98); Mean Platelet Volume 9.9 fL (7.4-10.4); Monocytes # 1.1 10^3/uL (0.2-0.9); Monocytes % 8.5 %; Neutrophils # 10.21 10^3/uL (1.8-7.7); Neutrophils % 77.2 %; Nucleated Red Blood Cells % 0 %; Platelet Count 683 10^3/cmm (157-399); Red Blood Count 3.28 10^6/uL (3.85-5.65); Red Cell Distribution Width 15.9 % (12.1-15.1); White Blood Count 13.24 10^3/uL (3.29-11.43)
[2023-08-27 06:16] LABS: Blood Urea Nitrogen 12 mg/dL (6-20); Calcium 8.9 mg/dL (8.5-10.5); Carbon Dioxide 28 mmol/L (22-29); Chloride 98 mmol/L (98-107); Creatinine Clr Calc Pharmacy 123.9998; Glomerular Filtration Rate 108.1 mL/min (90-130); Glucose 97 mg/dL (65-115); Osmolality Calculated 284 mOsm/kg (285-295); Sodium 137 mmol/L (136-145)
[2023-08-27 06:18] LABS: Anion Gap 16.1 (5-19); Potassium 5.1 mmol/L (3.5-5.1)
[2023-08-27 08:00] VITALS: BP 101/60; PULSE 83; RESP 17; TEMP 36.9; O2SAT 97
[2023-08-27] MEDS: ferrous sulfate EC 325 mg Tablet PO (08:15)
[2023-08-27] MEDS: metroNIDAZOLE 500 MG Tablet PO (08:16)
[2023-08-27] MEDS: vancomycin 1,250 MG/250 ML PIGGYBACK 250 MG IV (08:16)
[2023-08-27] MEDS: docusate sodium 100 mg Capsule PO (08:16)
--- NOTE | 2023-08-27 08:36 | P.PN_ITS ---
Subjective 2 Subjective: Infectious disease progress note Patient states that she feels improved with regards to her abdominal pain Leukocytosis trending down at 13,000 today. Tmax 99.1 Fahrenheit over last 24 hours. Blood culture from August 23 remains negative to date. Medications: Reviewed: Yes Vitals/I&O/Wt Last Vital Signs Temp 98.4 F 08/27/23 08:00 Pulse 83 08/27/23 08:00 Resp 17 08/27/23 08:00 BP 101/60 08/27/23 08:00 Pulse Ox 97 08/27/23 08:00 O2 Del Method Room Air 08/27/23 08:00 O2 Flow Rate 2 08/18/23 04:00 08/26/23 08/27/23 08/27/23 22:59 06:59 14:59 Intake Total 540 / 1150 180 / 180 Balance 540 / 1150 180 / 180 Weight last 48 hrs Weight 66.338 kg Weight 68.946 kg Weight 68.946 kg Physical Exam 2 Narrative: General: No acute distress, AO x3 HEENT: PERRLA, pupils bilaterally equal and reactive, pallors not present Chest: Normal vesicular breath sounds, no added sounds, equal good air entry bilaterally CVS: S1-S2 regular, no murmurs, no tachycardia, no gallops, no rubs Abdomen: Soft, nontender, no organomegaly, bowel sounds present, sutures from recent laparoscopic surgery in place. She has 1 IR drain on the right side of her abdomen. Neuro: No focal deficits, no facial deformity, AO x3, power 5/5 in all limbs Data 08/27/23 04:59 08/27/23 04:59 A&P Assessment and plan (1) Gram-negative bacteremia: (2) Appendicitis: (3) Acute gangrenous appendicitis with perforation and peritonitis: (4) Intra-abdominal abscess: Plan 43-year-old lady currently admitted to the hospital since 04/16/2023 after presenting with acutely perforated gangrenous appendicitis with peritonitis and septic shock. Status post appendectomy on August 15, 2023 Intraoperatively found to have copious amount of pus in the abdomen which has subsequently organized into 2 pelvic abscesses. Blood cultures positive for Bacteroides fragilis from August 15, 2023. Subsequently blood cultures have cleared. Status postplacement of IR guided drainage into one of the 2 pelvic abscesses with interval improvement on serial imaging. Cultures from this pelvic abscess have revealed pansensitive E. coli. There remains a 2.1 x 3.5 cm second pelvic abscess which is not amenable to IR drainage. Patient has been on treatment initially with piperacillin/tazobactam and then meropenem both of which would adequately cover for polymicrobial pelvic infection. Blood cultures have shown clearance. She was transitioned to IV ceftriaxone plus oral metronidazole on Sunday. Patient is otherwise clinically improving. She is able to pass flatus and stool. She is tolerating a p.o. intake. Plan: Given the extent of her pelvic infection, complicated by development of 2 pelvic abscesses, 1 of which is improved after IR drainage, however a second 2.5 x 3.1 centimeter abscess still remains. Recommend treatment with IV antibiotics over the course of next 3 to 4 weeks until there is noted to be resolution of the pelvic abscesses. Planned discharge with ceftriaxone 2 g IV every 24 hours and metronidazole 500 mg p.o. every 8 hours. Can discontinue vancomycin today as cultures do not reveal any resistant organisms. Stable for discharge from an infectious disease standpoint when ready for surgery Patient is going to be leaving with the IR drain in place. Serial CT abdomen has been requested with contrast on September 04, 2023. Follow-up in the ID clinic on September 05, 2023 at 12:30 PM. Follow-up on September 04 we will be changing her PICC line dressing and obtaining weekly labs. Patient had initially refused IV antibiotics but is now agreeable for the same. Her will be helping her with the infusions at home. Patient does not have insurance. Case management working on checking cost of antibiotics prescribed and patient's affordability. Overall treatment course will remain dependent on patient's continued clinical course/improvement, and serial radiological improvement. Final course of antibiotics may be adjusted based on serial clinical response. Follow-up in ID clinic on September 04 at 12:30 PM. Attestations 2 Medical Necessity Statement*: per admitting Coding Level of Care Code Acute Code for [facility] Fwd Diagnoses Gram-negative bacteremia R78.81 Appendicitis K37 Acute gangrenous appendicitis with perforation and peritonitis K35.32 Intra-abdominal abscess K65.1
--- NOTE | 2023-08-27 10:49 | PM.DCS ---
Discharge Providers Date of Admission: 08/15/23 14:34 Date of Discharge: August 27, 2023 Attending Provider at Admission: Jd Isidro DO Attending Provider at Discharge: Jd Isidro DO Diagnoses at Discharge Discharge Diagnosis (1) Gram-negative bacteremia: Status: Acute (2) Appendicitis: Status: Acute (3) Acute gangrenous appendicitis with perforation and peritonitis: Status: Acute (4) Intra-abdominal abscess: Status: Acute (5) Septic shock: Status: Acute (6) No pertinent past medical history: Status: Acute (7) Pelvic abscess: Status: Acute Reason for Visit Reason for Visit: abd pain, back pain, vomitting, diarrhea Hospital Course Hospital Course 43-year-old female who presented with acute appendicitis with perforation and feculent peritonitis, was taken to the OR by my colleague Dr. Isidro appendectomy was stone a drain was left in place. In the postoperative period patient was noted to have large pelvic abscess as well as a interloop abscess pelvic abscess was drained by IR. After that patient remained the hospital for IV antibiotics. Eventually after evaluation by ID she was decided to go to [facility] to be discharged home on IV antibiotics. She was stable at time of discharge no significant abdominal pain with IR drain in the pelvis draining purulent fluid. Physical Exam GI: OTHER: Abdomen soft, mild distended, minimally tender. Pigtail drain in place with purulent fluid drainage. Discharge Data Studies Completed and Pending Completed Studies During Hospitalization Category Date Time Status CT abdomen pelvis w con* [id number] Routine Cat Scan 08/22/23 09:[address] abdomen pelvis w con* [id number] Stat Cat Scan 08/15/23 07:[address] abdomen pelvis w con* [id number] Stat Cat Scan 08/18/23 12:[address] drain fluid [CT guided drainage [id number]] Routine Cat Scan 08/20/23 11:09 Completed CXRP [XR chest 1V portable [id number]] Routine Exams 08/24/23 09:13 Completed Pathology: Surgical [PTH] Routine Pth 08/15/23 13:32 Completed Radiology Impressions Abscess Drainage CT 08/20/23 11:09 IMPRESSION: 1. Uncomplicated CT-guided 8 Mauritian pigtail pelvic drain placement 2. Recommend catheter flushing twice a day with 8cc normal saline until removal Abdomen/Pelvis CT 08/22/23 09:23 IMPRESSION: 1. Dilated loops of small bowel with air-fluid levels likely postoperative adynamic ileus. 2. Recent postoperative changes appendectomy with peripheral enhancing fluid collection/abscess in the appendectomy bed measuring 3.1 x 2.5 cm. This is encased by small bowel anteriorly and would be difficult to access percutaneously. 3. Small bilateral pleural effusions with compressive atelectasis. Recommend correlation for developing pneumonia. 4. Improved pelvic fluid collection with a small amount of residual peripheral enhancing fluid. Pigtail catheter in place. 5. Interval removal of the surgical drain with a small amount of enhancing fluid along the surgical drain tract. Chest X-Ray 08/24/23 09:13 IMPRESSION: 1. Right-sided PICC line appearing to enter the cavoatrial junction. 2. Mild cardiac enlargement and bibasal plaque atelectasis. Laboratory Results WBC 13.24 10^3/uL (3.29-11.43) H 08/27/23 04:59 RBC 3.28 10^6/uL (3.85-5.65) L 08/27/23 04:59 Hgb 7.50 g/dL (11.27-16.99) L 08/27/23 04:59 Hct 22.8 % (36-47) L 08/27/23 04:59 MCV 69.5 fl (85-98) L 08/27/23 04:59 MCH 22.9 pg (27-33) L 08/27/23 04:59 MCHC 32.9 g/dL (30-55) 08/27/23 04:59 RDW 15.9 % (12.1-15.1) H 08/27/23 04:59 Plt Count 683 10^3/cmm (157-399) H 08/27/23 04:59 MPV 9.9 fL (7.4-10.4) 08/27/23 04:59 Neut % (Auto) 77.2 % 08/27/23 04:59 Lymph % (Auto) 11.0 % 08/27/23 04:59 Robertson % (Auto) 8.5 % 08/27/23 04:59 Eos % (Auto) 2.3 % 08/27/23 04:59 Baso % (Auto) 0.5 % 08/27/23 04:59 Neut # (Auto) 10.21 10^3/uL (1.8-7.7) H 08/27/23 04:59 Lymph # (Auto) 1.5 10^3/uL (0.8-4.8) 08/27/23 04:59 Robertson # (Auto) 1.1 10^3/uL (0.2-0.9) H 08/27/23 04:59 Eos # (Auto) 0.3 10^3/uL (0.0-0.8) 08/27/23 04:59 Baso # (Auto) 0.1 10^3/uL (0.0-0.1) 08/27/23 04:59 Nucleated RBC % (auto) 0 % 08/27/23 04:59 Nucleated RBCs # 0.0 /100WBC 08/27/23 04:59 ESR 89 mm/hr (0-15) H 08/18/23 14:11 Hemoglobin A 91.8 % (>96.0) L 08/18/23 05:12 Hemoglobin A2 Quant 4.3 % (2.0-3.2) H 08/18/23 05:12 Hemoglobin A2 Prime Not Reportable 08/18/23 05:12 Hemoglobin C Not Reportable 08/18/23 05:12 Hemoglobin D Not Reportable 08/18/23 05:12 Hemoglobin E Not Reportable 08/18/23 05:12 Hemoglobin F 3.9 % (<2.0) H 08/18/23 05:12 Hemoglobin G Not Reportable 08/18/23 05:12 Hemoglobin S Not Reportable 08/18/23 05:12 Hemoglobin B[place] Not Reportable 08/18/23 05:12 Hemoglobin Madeline Not Reportable 08/18/23 05:12 Variant Hemoglobin Not Reportable 08/18/23 05:12 Hemoglbnpthy Scn HPLC Confirms 08/18/23 05:12 Hemoglobinopathy MCV 75.7 fL (80.0-100.0) L 08/18/23 05:12 Hemoglobinopathy MCH 22.3 pg (27.0-33.0) L 08/18/23 05:12 Hemoglobinopathy MCHC 29.5 g/dL (32.0-36.0) L 08/18/23 05:12 Hemoglobinopathy RDW 16.6 % (11.0-15.0) H 08/18/23 05:12 Thalassemia/Hgb Review see note 08/18/23 05:12 PT 13.30 SECONDS (12.1-14.9) 08/19/23 05:12 INR 0.98 (0.8-1.2) 08/19/23 05:12 APTT 31.6 SECONDS (23.9-36.7) 08/19/23 05:12 Fibrinogen 726 mg/dL (174-498) H 08/19/23 05:12 Fibrin Degrad Products 10 mcg/mL (LESS THAN 5) H 08/19/23 05:32 D-Dimer 15.21 ug/mLFEU (0-0.59) H 08/19/23 05:12 Sodium 137 mmol/L (136-145) 08/27/23 04:59 Potassium 5.1 mmol/L (3.5-5.1) 08/27/23 04:59 Chloride 98 mmol/L (98-107) 08/27/23 04:59 Carbon Dioxide 28 mmol/L (22-29) 08/27/23 04:59 Anion Gap 16.1 (5-19) 08/27/23 04:59 BUN 12 mg/dL (6-20) 08/27/23 04:59 Creatinine 0.6 mg/dL (0.5-0.9) 08/27/23 04:59 GFR Calculation 108.1 mL/min (90-130) 08/27/23 04:59 Glucose 97 mg/dL (65-115) 08/27/23 04:59 Calculated Osmolality 284 mOsm/kg (285-295) L 08/27/23 04:59 Lactic Acid 1.9 mmol/L (0.5-2.2) 08/15/23 07:08 Lactate 0.7 mmol/L (0.5-2.2) 08/21/23 05:06 Calcium 8.9 mg/dL (8.5-10.5) 08/27/23 04:59 Phosphorus 3.4 mg/dL (2.5-4.5) 08/21/23 05:06 Magnesium 2.2 mg/dL (1.7-2.3) 08/21/23 05:06 Iron 18 ug/dL (37-145) L 08/25/23 19:08 TIBC 235 mcg/dl 08/25/23 19:08 % Saturation 7.6 % (20-50) L 08/25/23 19:08 Unsat Iron Binding 217 ug/dL (112-347) 08/25/23 19:08 Ferritin 127 ng/mL (15-150) 08/25/23 19:08 Total Bilirubin 0.2 mg/dL (0.15-1.2) 08/24/23 04:54 GGT 47 U/L (5-36) H 08/18/23 18:35 AST 24 U/L (0-32) 08/24/23 04:54 ALT 22 U/L (0-33) 08/24/23 04:54 Alkaline Phosphatase 215 U/L (35-105) H 08/24/23 04:54 Creatine Kinase 172 U/L (26-192) 08/19/23 05:12 C-Reactive Protein 64.0 mg/L (0.0-4.9) H 08/21/23 05:06 Total Protein 6.5 g/dL (6.6-8.7) L 08/24/23 04:54 Albumin 3.0 g/dL (3.5-5.2) L 08/24/23 04:54 Globulin 3.5 g/dL (1.3-4.6) 08/24/23 04:54 Lipase 9 U/L (13-60) L 08/15/23 07:08 CA 125 Antigen 40.8 U/mL (0-35) H 08/15/23 07:08 Vitamin B12 642 pg/mL (232-1245) 08/18/23 14:11 Folate 14.0 ng/mL (4.8-37.3) 08/18/23 14:11 Procalcitonin 1.06 ng/mL (0-0.5) H 08/21/23 05:06 HCG, Qual Negative (Negative) 08/18/23 14:11 Urine Color Yellow (Yellow) 08/24/23 05:15 Urine Appearance Slightly cloudy (CLEAR) 08/24/23 05:15 Urine pH 9 (5-7) H 08/24/23 05:15 Ur Specific Gillespie 1.015 (1.005-1.030) 08/24/23 05:15 Urine Protein Neg (Negative) 08/24/23 05:15 Urine Glucose (UA) Norm (Normal) 08/24/23 05:15 Urine Ketones Negative (Negative) 08/24/23 05:15 Urine Blood 2+ (Negative) H 08/24/23 05:15 Urine Nitrate Negative 08/24/23 05:15 Urine Bilirubin Neg (Negative) 08/24/23 05:15 Urine Urobilinogen Neg mg/dL (Negative) 08/24/23 05:15 Ur Leukocyte Esterase Negative (Negative) 08/24/23 05:15 Urine RBC 0-4 /hpf (0-2) H 08/24/23 05:15 Urine WBC 5-10 /hpf (0-5) H 08/24/23 05:15 Ur Squamous Epith Cells 10-15 /hpf (0-5) H 08/24/23 05:15 Amorphous Sediment 2+ /hpf 08/24/23 05:15 Urine Bacteria 1+ /hpf (NONE) H 08/24/23 05:15 Urine Mucus 1+ /hpf 08/24/23 05:15 Urine Trichomonas 1+ /hpf H 08/15/23 23:55 Vancomycin Trough 10.0 ug/mL (10-15) 08/25/23 19:08 Serum Ketones Negative (Negative) 08/15/23 07:08 Adenovirus (PCR) Not detected (NOT DETECT) 08/25/23 03:40 C. pneumoniae DNA (PCR) Not detected (NOT DETECT) 08/25/23 03:40 Coronavirus 229E (PCR) Not detected (NOT DETECT) 08/25/23 03:40 Hepatitis A IgM Ab Non-reactive (Nonreactive) 08/18/23 18:35 Hep Bs Antigen Non-reactive (Nonreactive) 08/18/23 18:35 Hep B Core IgM Ab Non-reactive (Nonreactive) 08/18/23 18:35 Hepatitis C Antibody Non-reactive (Nonreactive) 08/18/23 18:35 HIV 1&2 Ab & HIV 1 Ag Non-reactive (Non-Reactiv) 08/18/23 18:35 HIV 1&2 Antibody Non-reactive (Non-Reactiv) 08/18/23 18:35 Human Metapneumovir PCR Not detected (NOT DETECT) 08/25/23 03:40 Influenza A (H1) PCR Not detected (NOT DETECT) 08/25/23 03:40 Influ A (H1/09) PCR Not detected (NOT DETECT) 08/25/23 03:40 Influenza A (H3) PCR Not detected (NOT DETECT) 08/25/23 03:40 Influenza Type A (PCR) Not detected (NOT DETECT) 08/25/23 03:40 Influenza Type B (PCR) Not detected (NOT DETECT) 08/25/23 03:40 M. pneumoniae (PCR) Not detected (NOT DETECT) 08/25/23 03:40 Parainfluenza 1 (PCR) Not detected (NOT DETECT) 08/25/23 03:40 Parainfluenza 2 (PCR) Not detected (NOT DETECT) 08/25/23 03:40 Parainfluenza 3 (PCR) Not detected (NOT DETECT) 08/25/23 03:40 Parainfluenza 4 (PCR) Not detected (NOT DETECT) 08/25/23 03:40 RSV Type A (PCR) Not detected (NOT DETECT) 08/25/23 03:40 RSV Type B (PCR) Not detected (NOT DETECT) 08/25/23 03:40 Entero/Rhino (PCR) Not detected (NOT DETECT) 08/25/23 03:40 SARS-CoV-2 (PCR) Not detected (NOT DETECT) 08/25/23 03:40 Thalassemia Sum Interp see note 08/18/23 05:12 Blood Type A Positive 08/15/23 09:00 Rho(D) Type Rh positive 08/15/23 09:00 Antibody Screen Negative 08/15/23 09:00 Vitals Last Vital Signs Temp 98.5 F 08/27/23 14:14 Pulse 78 08/27/23 14:14 Resp 17 08/27/23 14:14 BP 101/63 08/27/23 14:14 Pulse Ox 97 08/27/23 14:14 O2 Del Method Room Air 08/27/23 12:00 O2 Flow Rate 2 08/18/23 04:00 Discharge Plan Discharge Patient Disposition: Home Condition: Stable Prescriptions: New ceftriaxone 2 gram recon soln 2 g IV DAILY 28 Days Qty: 28 0RF metronidazole 500 mg Tablet 500 mg PO TID 28 Days Qty: 84 0RF Milk of Magnesia 400 mg/5 mL Suspension 30 ml PO BEDTIME PRN (Reason: Constipation) Qty: 355 2RF docusate sodium 100 mg Capsule 100 mg PO BID PRN (Reason: Constipation) Qty: 30 0RF ferrous sulfate 325 mg (65 mg iron) Tablet,Delayed Release (Dr/Ec) 325 mg PO EVERY OTHER DAY Qty: 90 0RF pantoprazole 40 mg tablet,delayed release (DR/EC) 40 mg PO BID 42 Days Qty: 84 0RF No Action ciprofloxacin HCl 500 mg tablet 500 mg PO BID 14 Days Qty: 28 0RF Discharge Orders: Discharge Order (Routine); Ordered 08/27/23 Ordered By: Rodrigo Christian Other Ambulatory Orders: Miscellaneous Procedure (Order) Location: None Selected Ordered By: Rodrigo Christian Referrals: [facility] [Other] - 09/03/23 1:00 pm (appointment with DR CIRILO BARTH AT [facility]) [facility] [Outside] - 08/28/23 9:00 am Jd Isidro DO [Physician] - 09/07/23 9:15 am () Vianca Francis MD [Hospitalist] - 09/05/23 12:30 pm (ID clinic) Discharge Diet: Advance as tolerated Discharge Activity: Resume usual activity Patient Instructions: Iron Supplements (By mouth), Metronidazole (By mouth), Ceftriaxone (By injection), Pantoprazole (By mouth), Pain Management After Surgery (DC), How to Care for Your PICC (Peripherally Inserted Central Catheter) (GEN), Laparoscopic Appendectomy (DC), Opioid Safety Activity Restrictions/Additional Instructions: Follow-up in office with surgery and infectious disease with regards to intra-abdominal abscess. Continue IV antibiotic for treatment of the abscess in your abdomen as per discussion with infectious disease and surgery, completing 4-week course with follow-up in office for reassessment, repeat CT scan, and reassessment for removal of the drain. Follow-up with your primary doctor and with surgery for reassessment of anemia. Continue iron supplementation by mouth. Discussed with surgery and with your primary doctor follow-up with assessment by endoscopy to exclude any concerning causes. PICC line should be removed as soon as it is no longer needed due to risk of infection, risk of blood clots and other complications. Continue to use incentive spirometer to help reduce chance of atelectasis and pneumonia. Continue to ambulate several times daily as tolerating. Discharge Attestations Time Spent in Discharge Care*: less than 30 min Quality Metrics Clinical Quality Measures [ No reported AMI, CVA or VTE this stay] Coding Level of Care Code Acute Code for Chg Fwd Diagnoses Gram-negative bacteremia R78.81 Appendicitis K37 Acute gangrenous appendicitis with perforation and peritonitis K35.32 Intra-abdominal abscess K65.1 Septic shock A41.9; R65.21 No pertinent past medical history Z78.9 Pelvic abscess
[2023-08-27 12:00] VITALS: BP 101/63; PULSE 78; RESP 17; TEMP 36.9; O2SAT 97
--- NOTE | 2023-08-27 12:11 | P.PN_ITS ---
Subjective 2 Subjective: She reports she is doing well, has been ambulating, tolerating oral intake. Has been working with incentive spirometer. Feels ready to return home. Vitals/I&O/Wt Last Vital Signs Temp 98.4 F 08/27/23 08:00 Pulse 83 08/27/23 08:00 Resp 17 08/27/23 08:00 BP 101/60 08/27/23 08:00 Pulse Ox 97 08/27/23 08:00 O2 Del Method Room Air 08/27/23 08:00 O2 Flow Rate 2 08/18/23 04:00 08/26/23 08/27/23 08/27/23 22:59 06:59 14:59 Intake Total 540 / 1150 430 / 430 Balance 540 / 1150 430 / 430 Weight last 48 hrs Weight 66.338 kg Weight 68.946 kg Weight 68.946 kg Physical Exam 2 Narrative: Sitting up in bed. Const: COMMON NORMALS: patient oriented x3 and alert GENERAL APPEARANCE: c ooperative ORIENTATION/CONSCIOUSNESS: Yes awake HENMT: COMMON NORMALS: oropharynx normal Neck/C-Spine: COMMON NORMALS: no JVD Resp: COMMON NORMALS: normal respiratory effort and clear to auscultation bilaterally AUSCULTATION: clear to auscultation bilaterally Cardio: COMMON NORMALS: no JVD, regular rhythm, S1 normal heart sound present, S2 normal heart sound present and No murmurs present (Cardio) RHYTHM: regular rhythm HEART SOUNDS: S1 normal heart sound present and S2 normal heart sound present GI: COMMON NORMALS: Soft to palpation PALPATION: Yes Soft to palpation O THER: Pigtail drain with small amt of drainage in the bag from flushes. GAMAL drain removed. Extremity: COMMON NORMALS: no joint enlargement and no pedal edema Neuro: COMMON NORMALS: patient oriented x3 and moves all extremities S ENSORIUM/ORIENTATION: Yes alert Skin: COMMON NORMALS: no rashes or lesions noted GENERAL SKIN EXAM: no rashes or lesions noted Data 08/27/23 04:59 08/27/23 04:59 A&P Assessment and plan (1) Gram-negative bacteremia: (2) Appendicitis: (3) Acute gangrenous appendicitis with perforation and peritonitis: (4) Intra-abdominal abscess: (5) Septic shock: (6) No pertinent past medical history: Plan Acute gangrenous and perforated appendicitis. She reports she is doing well and she reports that she has discussed with surgery and infectious disease regarding going home. She is to continue IV antibiotics with Rocephin daily as well as Flagyl by mouth she tells me, but she will be coming into the infusion center to do so. We revisited with her regarding risks with PICC line, risk of infection, thrombosis, she understands to seek medical attention in case of any abnormal symptoms. We also ordered visited with her history of substance use disorder regarding risk with PICC line, and discussed any concerns of risk of relapse. She states she understands the risk that may be associated with a PICC line, however, states that she has not used any substances for over 2 years, she states also in case she has any concerns of relapse she would let us know, substance use, additionally she has not had any issues with IV substance use. She used to use methamphetamine by smoking. She understands potential life-threatening risk in case of misuse of PICC line, injection of illicit substance through the line. She knows to let someone know right away in case there is any risks. Reviewed vitals, reviewed CBC, reviewed CBC. Reviewed reviewed blood culture from 08/23, remaining negative. Reviewed infectious disease note. She is to continue IR drain for now. As per discussion nursing staff she and will be shown again to reinforce flushing the drain. With reassessment CT surgery will consider removal. Discussed with correctional case manager. Follow-up CBC. She is to maintain IR drain in place for now at discharge until reassessment by surgery. Reviewed surgery note. Continued with IV antibiotics at this time. Surgery following up with regards to the drain as well. Reassess condition. With a small abscess near appendix not accessible by IR. She understands the risk of worsening abscess, disseminated infection, sepsis. Fluid collection likely will need prolonged course of antibiotic. She requested at all possible not to have to do IV antibiotics at home due to having animals. Remote history of substance use. After discussion plans are for further outpatient IV antibiotic therapy to be completed after discharge. Abscess fluid culture reviewed, growing pansensitive E. coli. Hydrocodone as needed for moderate pain. Wean as tolerating. Off IV Dilaudid for pain. Encouraged ambulation, incentive spirometer. Anemia: acute on chronic anemia. Studies suggestive of iron deficiency. Reviewed Hemoccult, positive. Discussed with her, discussed with surgeon. Hemoglobin today is 7. She would like to avoid blood transfusion. Discussed with her again regarding theoretical risks with iron. She would like to continue supplementation. Increasing PPI . Continue. Per discussion with surgery they will follow-up with her with consideration of endoscopic evaluation in about 6 weeks. She reports history of iron deficiency anemia. Would like to continue oral iron. Reassess blood counts. ? Status post laparoscopic appendectomy ? GAMAL drain is out ? Was on pressors in the emergency room received IV antibiotics, received IV fluids, resolved -1 blood culture reviewed, Bacteroides (B fragilis group)., Abscess culture growing E. coli. -repeat ct scan abdomen/pelvis shows - CT/CT abdomen pelvis w con* [id number] IMPRESSION: 1. There are 2 loculated pockets of peritonitis in the cul-de-sac and in the right lower quadrant in the resection bed of the appendix. Postsurgical drain is passing anteriorly and inferiorly to these pockets. There is expected trace amount of free intraperitoneal fluid and air expected on day 3 after surgery. 2. There is fluid retention with new soft tissue edema, new small bilateral pleural effusions. There are passive dependent atelectatic changes in the lung bases. ? Continue hydrocodone for pain control. The IV Dilaudid expiring, so far without further use. Will discontinue. -Antibiotic coverage expanded to meropenem -follow blood cultures, 1 blood culture positive for gram-negative rods, -Working on transfer to tertiary level center for IR guided drainage of fluid pockets versus drainage here possibly tomorrow Septated cystic lesion right adnexa for which follow-up ultrasound is recommended ? Has a family history of ovarian cancer ? CA125, elevated, will need to follow-up with It Help Desk Analyst as outpatient -follow-up with gynecology as outpatient Urine shows trichomonas species, on Flagyl Attestations 2 Medical Necessity Statement*: Returning home. , High MDM includes amount and/or complexity of data reviewed/ordered [ previous or external records, resulted lab(s)/test(s), ordered lab(s)/test(s) and other healthcare professional discussion] and described risk of complication, morbidity or mortality of management as documented and High Time for a total of 60 minutes, includes reviewing past or interval history, examining/interviewing patient, placing orders, counseling patient/family/other support, updating patient/family/other support, discussing plan of care with staff, communicating with other healthcare providers, documenting encounter and coordinating care Diagnoses Gram-negative bacteremia R78.81 Appendicitis K37 Acute gangrenous appendicitis with perforation and peritonitis K35.32 Intra-abdominal abscess K65.1 Septic shock A41.9; R65.21 No pertinent past medical history Z78.9
--- NOTE | 2023-08-27 12:32 | P.PN_ITS ---
Subjective 2 Subjective: This a 43-year-old female who is postoperative day 12 status post laparoscopic appendectomy for perforated acute appendicitis with peritonitis. Patient was noted to have an intra-abdominal abscess, underwent drainage from postoperative day 5, due to uptrending white count she had a repeat CT scan on postoperative day 7 which show evidence of adequate drainage of the pelvic abscess but persistent about mid abdominal abscess that he is incased between bowel loops the abscess measures about 3 cm. Very good progression of the last 24 hours, passing gas and bowel movements. Abdominal pain has improved. No fever or chills. Vitals/I&O/Wt Last Vital Signs Temp 98.4 F 08/27/23 08:00 Pulse 83 08/27/23 08:00 Resp 17 08/27/23 08:00 BP 101/60 08/27/23 08:00 Pulse Ox 97 08/27/23 08:00 O2 Del Method Room Air 08/27/23 08:00 O2 Flow Rate 2 08/18/23 04:00 08/26/23 08/27/23 08/27/23 22:59 06:59 14:59 Intake Total 540 / 1150 430 / 430 Balance 540 / 1150 430 / 430 Weight last 48 hrs Weight 146 lb 4 oz Weight 152 lb Weight 152 lb Physical Exam 2 GI: OTHER: Abdomen is soft, appropriately tender to palpation, surgical incisions are healing well. There is mild distention. Data 08/27/23 04:59 08/27/23 04:59 A&P Assessment and plan (1) Acute gangrenous appendicitis with perforation and peritonitis: (2) Pelvic abscess: (3) Intra-abdominal abscess: Plan Postoperative day 12 status post laparoscopic appendectomy, postoperative day 7 status post IR drainage of pelvic abscess. Clinically improving, less abdominal pain and overall feeling better. We have seen an improvement on the white count over the last 24 hours stranding now now is 13,000, with this findings and after discussion with medical team and infectious diseases will consider the safe for patient to be transition to IV antibiotics at home. She will be coming to the hospital on a daily basis to receive infusion. She will get a CAT scan early next week and then follow-up with Dr. Isidro as outpatient to discuss any need for any additional therapy and for drain removal. I have asked tensive discussion with the patient regarding warning signs, I also gave her instructions regarding the drain, I have advised her to stop smoking and to take it easy with the food. Patient shows understanding will continue current treatment at home. Attestations 2 Medical Necessity Statement*: For discharge today Coding Level of Care Code Acute Code for Chg Fwd Diagnoses Acute gangrenous appendicitis with perforation and peritonitis K35.32 Pelvic abscess Intra-abdominal abscess K65.1
[2023-08-27 14:14] VITALS: BP 101/63; PULSE 78; RESP 17; TEMP 36.9; O2SAT 97
== END 2023-08-27 14:00 | disposition home or self-care (01) | DRG 853 ==
LOC: ER 12:08 → OR 12:18 → ICU 14:35 → MEDSURG 08-17 14:35
PROVIDERS: Family Medicine; Internal Medicine; Radiology Neuroradiology; Student in an Organized Health Care Education/Training Program; Surgery; Admitting Provider Surgery; Emergency Provider Family Medicine; Visit Provider Surgery
PROC: 0DTJ4ZZ Resection of Appendix, Percutaneous Endoscopic Approach (ICD-10-PCS; CPT 44970; principal; 2023-08-15 13:15)
PROC: 0W9G30Z Drainage of Peritoneal Cavity with Drainage Device, Percutaneous Approach (ICD-10-PCS; CPT 75989; principal; 2023-08-20 13:30)
DX: A41.9 Sepsis, unspecified organism (principal); K35.33 Acute appendicitis with perforation, localized peritonitis, and gangrene, with abscess; R65.21 Severe sepsis with septic shock; Z11.52 Encounter for screening for COVID-19; F17.200 Nicotine dependence, unspecified, uncomplicated; D64.9 Anemia, unspecified; B96.6 Bacteroides fragilis [B. fragilis] as the cause of diseases classified elsewhere; B96.20 Unspecified Escherichia coli [E. coli] as the cause of diseases classified elsewhere; A59.9 Trichomoniasis, unspecified; R97.1 Elevated cancer antigen 125 [CA 125]
CPT/HCPCS: 36415; 36573; 36592; 71045; 74177; 75989; 80048; 80053; 80074; 80202; 81001; 82009; 82274; 82550; 82607; 82728; 82746; 82977; 83020; 83540; 83550; 83605; 83690; 83735; 84100; 84145; 84703; 85014; 85018; 85025; 85041; 85362; 85378; 85384; 85610; 85651; 85730; 86140; 86304; 86850; 86900; 87040; 87070; 87075; 87077; 87086; 87150; 87186; 87205; 87486; 87581; 87633; 87806; 88304; 96365; 96367; 96372; 96374; 96375; 96376; 99285; C9113; J0330; J0696; J1100; J1170; J1200; J1644; J1885; J2185; J2250; J2371; J2405; J2543; J2704; J2710; J3010; J3370; J3475; J3480; J3490; J7030; J7050; Q9967

== ENCOUNTER 2023-08-27 19:52 | Emergency (ER) | payer SELFPAY ==
--- NOTE | 2023-08-27 19:54 | ECG_ITS ---
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 Measurements Intervals [place] Rate: 92 P: 74 VT: 130 QRS: 65 QRSD: 78 T: 65 QT: 349 QTc: 434 Interpretive Statements SINUS RHYTHM No previous ECG available for comparison Electronically Signed On 08-28-2023 21:54:05 CDT by Ashley Cerrato M.D. [email or web address]
--- NOTE | 2023-08-27 19:54 | XRR_ITS ---
PROCEDURE INFORMATION: Exam: XR Chest Exam date and time: 08/27/2023 8:05 PM Age: 43 years old Clinical indication: Shortness of breath; TECHNIQUE: Imaging protocol: Radiologic exam of the chest. Views: 1 view. COMPARISON: CR XR chest 1V portable [id number] 08/24/2023 10:02 AM FINDINGS: Tubes, catheters and devices: Distal PICC line tip projects over the right atrium. Lungs: Lungs are hyperexpanded. Bibasilar scarring and or atelectasis is similar to the prior study. Pleural spaces: There is blunting of the right costophrenic angle suggestive of a pleural effusion. Heart/Mediastinum: Heart size not optimally evaluated with a single AP view of the chest. Bones/joints: Old/healed fracture through the posterior left 6 rib similar to the prior study. XR/XR chest 1V portable [id number] IMPRESSION: 1. The lungs are hyperexpanded. This can be seen with COPD or an optimal inspiratory effort. 2. There is blunting of the right costophrenic angle suggestive of a pleural effusion.
[2023-08-27 20:01] VITALS: BP 106/68; PULSE 90; RESP 24; TEMP 37; O2SAT 92
[2023-08-27 21:04] LABS: Basophils # 0.1 10^3/uL (0.0-0.1); Basophils % 0.6 %; Eosinophils # 0.1 10^3/uL (0.0-0.8); Eosinophils % 0.7 %; Hematocrit 24.6 % (36-47); Lymphocytes # 1.5 10^3/uL (0.8-4.8); Lymphocytes % 9.4 %; Mean Corpuscular HGB Conc 32.5 g/dL (30-55); Mean Corpuscular Hemoglobin 22.5 pg (27-33); Mean Corpuscular Volume 69.1 fl (85-98); Mean Platelet Volume 9.7 fL (7.4-10.4); Monocytes # 1.2 10^3/uL (0.2-0.9); Monocytes % 7.1 %; Neutrophils # 13.25 10^3/uL (1.8-7.7); Neutrophils % 81.6 %; Nucleated Red Blood Cells % 0 %; Platelet Count 853 10^3/cmm (157-399); Red Blood Count 3.56 10^6/uL (3.85-5.65); Red Cell Distribution Width 15.8 % (12.1-15.1); White Blood Count 16.22 10^3/uL (3.29-11.43)
[2023-08-27 21:11] LABS: Alanine Aminotransferase 11 U/L (0-33); Albumin Level 3.8 g/dL (3.5-5.2); Alkaline Phosphatase 165 U/L (35-105); Anion Gap 18.4 (5-19); Aspartate Amino Transferase 18 U/L (0-32); Blood Urea Nitrogen 13 mg/dL (6-20); Calcium 9.2 mg/dL (8.5-10.5); Carbon Dioxide 24 mmol/L (22-29); Chloride 97 mmol/L (98-107); Creatinine Clr Calc Pharmacy 106.1029; Globulin 3.9 g/dL (1.3-4.6); Glomerular Filtration Rate 90.5 mL/min (90-130); Glucose 116 mg/dL (65-115); NT Pro B Type Natriuretic Pept 55 pg/mL (0-125); Osmolality Calculated 281 mOsm/kg (285-295); Potassium 4.4 mmol/L (3.5-5.1); Sodium 135 mmol/L (136-145); Total Bilirubin 0.3 mg/dL (0.15-1.2); Total Protein 7.7 g/dL (6.6-8.7)
[2023-08-27 21:39] LABS: D Dimer 9.65 ug/mLFEU (0-0.59)
== END 2023-08-27 21:25 | disposition left against medical advice (07) ==
PROVIDERS: Emergency Medicine; Emergency Provider Family Medicine
DX: Z53.21 Procedure and treatment not carried out due to patient leaving prior to being seen by health care provider (principal)
CPT/HCPCS: 36415; 71045; 80053; 83880; 85025; 85378; 93005; 99285

== ENCOUNTER 2023-09-07 13:00 | Outpatient (CLI) | payer SELFPAY ==
--- NOTE | 2023-09-07 13:00 | CT_ITS ---
WS: [id number] CT ABDOMEN PELVIS TECHNIQUE: Contrast-enhanced CT of the abdomen and pelvis with coronal and sagittal reformatted image s. CLINICAL INFORMATION: pelvic abscess follow up COMPARISON: CT 08/22/2023 and 08/18/2023 DLP: 275.[address] scans at [facility] use at least one of these dose optimization techniques: automated e xposure control; mA and/or kV adjustment per patient size (includes targeted exams where dose is matc hed to clinical indication); or iterative reconstruction. FINDINGS: Previously described bilateral pleural effusions have resolved. Slight subsegmental atelectasis in th e lung bases. Improved aeration of the lung bases today. Prior postoperative changes appendectomy. Pe lvic fluid collection drain in place. Pelvic fluid collection has improved and essentially resolved c ompared to the prior examinations. Only a tiny amount of residual fluid in the cul-de-sac in this are a. Previously described peripheral enhancing abscess in the appendectomy bed has decreased in size otis red to previous. This has significantly improved today and measures approximately 1.3 x 0.7 cm with o nly a tiny amount of internal fluid. No other new or suspicious fluid collections. No other significa nt changes compared to the prior studies. CT/CT abdomen pelvis w con* [id number] IMPRESSION: 1. Recent postoperative changes appendectomy. 2. Previously described abscess in the appendectomy bed has significantly impr fam compared to previous with only a tiny amount of peripheral enhancing resid ual fluid. Fluid collection today measures approximately 1.3 x 0.7 cm 3. Pelvic fluid collection with the pelvic drain has essentially resolved. Onl y a trace amount of residual fluid in the cul-de-sac. Recommend correlation wit h drain output. 4. Otherwise no new fluid collections or abscess. 5. Previously described pleural effusions have resolved. 6. No other significant changes compared to previous.
[2023-09-07] MEDS: iohexol 350 mg/mL 500 mL Btl (per mL) IV (13:35)
== END 2023-09-07 13:01 | disposition home or self-care (01) ==
PROVIDERS: Visit Provider Student in an Organized Health Care Education/Training Program
DX: K35.32 Acute appendicitis with perforation, localized peritonitis, and gangrene, without abscess (principal); R78.81 Bacteremia; Z90.49 Acquired absence of other specified parts of digestive tract; Z97.8 Presence of other specified devices
CPT/HCPCS: 74177; Q9967

== ENCOUNTER 2023-09-16 09:00 | Oncology outpatient (recurring) (ONCR) | payer SELFPAY ==
[2023-08-28 09:18] VITALS: BP 105/69; PULSE 93; RESP 16; O2SAT 99
[2023-08-28] MEDS: cefTRIAXone 2,000 mg SDV 2000 MG IVP (09:23)
[2023-08-28 09:33] VITALS: BP 114/73; PULSE 97; RESP 16; O2SAT 95
[2023-08-29 09:08] VITALS: BP 107/69; PULSE 91; RESP 16; TEMP 36.7; O2SAT 99
[2023-08-29] MEDS: cefTRIAXone 2,000 mg SDV 2000 MG IVP (09:16)
--- NOTE | 2023-08-30 09:29 | SUR.PREOP ---
0910-called patient, no answer, left message
[2023-08-30 10:40] VITALS: BP 106/75; PULSE 94; RESP 17; TEMP 36.9; O2SAT 97
[2023-08-30] MEDS: cefTRIAXone 2,000 mg SDV 2000 MG IVP (11:02)
[2023-08-31 09:10] VITALS: BP 106/72; PULSE 92; RESP 17; TEMP 36.5; O2SAT 97
[2023-08-31] MEDS: cefTRIAXone 2,000 mg SDV 2000 MG IVP (09:33)
[2023-08-31 09:36] LABS: Basophils # 0.1 10^3/uL (0.0-0.1); Basophils % 1.1 %; Eosinophils # 0.1 10^3/uL (0.0-0.8); Eosinophils % 1.1 %; Hematocrit 23.7 % (36-47); Lymphocytes # 1.2 10^3/uL (0.8-4.8); Lymphocytes % 15.1 %; Mean Corpuscular HGB Conc 31.6 g/dL (30-55); Mean Corpuscular Hemoglobin 22.1 pg (27-33); Mean Corpuscular Volume 69.9 fl (85-98); Mean Platelet Volume 9.3 fL (7.4-10.4); Monocytes # 0.8 10^3/uL (0.2-0.9); Monocytes % 10.2 %; Neutrophils # 5.67 10^3/uL (1.8-7.7); Neutrophils % 72.2 %; Nucleated Red Blood Cells % 0 %; Platelet Count 758 10^3/cmm (157-399); Red Blood Count 3.39 10^6/uL (3.85-5.65); Red Cell Distribution Width 16.1 % (12.1-15.1); White Blood Count 7.86 10^3/uL (3.29-11.43)
[2023-08-31 09:54] LABS: Alanine Aminotransferase < 5 U/L (0-33); Albumin Level 3.5 g/dL (3.5-5.2); Alkaline Phosphatase 106 U/L (35-105); Aspartate Amino Transferase 17 U/L (0-32); Globulin 4.1 g/dL (1.3-4.6); Glomerular Filtration Rate 108.1 mL/min (90-130); Total Bilirubin 0.2 mg/dL (0.15-1.2); Total Protein 7.6 g/dL (6.6-8.7)
[2023-09-01] MEDS: cefTRIAXone 2,000 mg SDV 2000 MG IVP (09:20)
[2023-09-01 09:53] VITALS: BP 94/69; PULSE 97; RESP 20; TEMP 37.6; O2SAT 98
[2023-09-02 09:17] VITALS: BP 132/82; PULSE 91; RESP 18; TEMP 36.6; O2SAT 96
[2023-09-02] MEDS: cefTRIAXone 2,000 mg SDV 2000 MG IVP (09:17)
[2023-09-03] MEDS: cefTRIAXone 2,000 mg SDV 2000 MG IVP (09:29)
[2023-09-03 09:38] VITALS: BP 114/70; PULSE 89; RESP 16; TEMP 36.5; O2SAT 99
[2023-09-04] MEDS: cefTRIAXone 2,000 mg SDV 2000 MG IVP (09:37)
[2023-09-04 09:47] VITALS: BP 121/81; PULSE 85; RESP 16; TEMP 36.6; O2SAT 98
[2023-09-05 09:20] VITALS: BP 117/80; PULSE 85; TEMP 36.8; O2SAT 99
[2023-09-05] MEDS: cefTRIAXone 2,000 mg SDV 2000 MG IVP (09:38)
[2023-09-05 09:48] VITALS: BP 112/64; PULSE 70; RESP 16; TEMP 36.6; O2SAT 99
[2023-09-06 09:07] VITALS: BP 117/71; PULSE 81; RESP 16; TEMP 36.4; O2SAT 98
[2023-09-06] MEDS: cefTRIAXone 2,000 mg SDV 2000 MG IVP (09:13)
[2023-09-07] MEDS: cefTRIAXone 2,000 mg SDV 2000 MG IVP (09:42)
[2023-09-07 09:51] VITALS: BP 110/71; PULSE 72; RESP 16; TEMP 36.7; O2SAT 97
[2023-09-08 09:05] VITALS: BP 115/75; PULSE 88; RESP 17; TEMP 37.2; O2SAT 99
[2023-09-08] MEDS: cefTRIAXone 2,000 mg SDV 2000 MG IVP (09:17)
[2023-09-09 09:02] VITALS: BP 122/69; PULSE 84; RESP 16; TEMP 36.5; O2SAT 99
[2023-09-09] MEDS: cefTRIAXone 2,000 mg SDV 2000 MG IVP (09:14)
[2023-09-10] MEDS: cefTRIAXone 2,000 mg SDV 2000 MG IVP (10:18)
[2023-09-10 10:35] VITALS: BP 113/70; PULSE 79; RESP 16; TEMP 36.4; O2SAT 96
[2023-09-11] MEDS: cefTRIAXone 2,000 mg SDV 2000 MG IVP (09:32)
[2023-09-11 11:29] VITALS: BP 114/68; PULSE 77; RESP 16; TEMP 36.6; O2SAT 99
== END 2023-09-26 23:59 | disposition home or self-care (01) ==
LOC: ONCMED 09-24 11:37
PROVIDERS: Student in an Organized Health Care Education/Training Program; Visit Provider Internal Medicine
DX: Z53.9 Procedure and treatment not carried out, unspecified reason (principal)
CPT/HCPCS: 80076; 82565; 85025; 96365; 96374; J0696